=== PATIENT | female | born 1960 | race Caucasian/White ===

== ENCOUNTER → 2018-01-24 | Day surgery (SDC) | payer BC ==
[2018-01-19 15:58] VITALS: BMI 32.7
[~2018-01-24] MED LIST: GLYCOPYRROLATE 0.2 MG/ML 2 ML VIAL ONE; LACTATED RINGERS 1,000 ML IV SCH; LIDOCAINE 1% 20 ML VIAL (10MG/ML) FOR IV START INTRADERMA ONE; PROPOFOL 10 MG/ML 20 ML VIAL IV ONE; fentaNYL (PF) 50 MCG/ML 2 ML AMP ONE
--- NOTE | 2018-01-24 07:37 | P.GSHP ---
History of Present Illness H&P Date: 01/24/18 CHIEF COMPLAINT: GERD and colon screen HISTORY OF PRESENT ILLNESS: The patient is a 58-year-old female who presents with gastroesophageal reflux disease and need for colon screen. Upper and lower endoscopy were offered for further evaluation and management. PAST MEDICAL HISTORY: Please see list. PAST SURGICAL HISTORY: Please see list. MEDICATIONS: Please see list. ALLERGIES: Please see list. SOCIAL HISTORY: No illicit drug use FAMILY HISTORY: No reports of Crohn disease or ulcerative colitis. REVIEW OF ORGAN SYSTEMS: CONSTITUTIONAL: No reports of fevers or chills. GI: Denies any blood in stools or constipation. PHYSICAL EXAM: VITAL SIGNS: Stable GENERAL: Well-developed pleasant in no acute distress. HEENT: No scleral icterus. Extraocular movements grossly intact. Moist buccal mucosa. NECK: Supple without lymphadenopathy. CHEST: Unlabored respirations. Equal bilateral excursions. CARDIOVASCULAR: Regular rate and rhythm. Distal 2+ pulses. ABDOMEN: Soft, nondistended. MUSCULOSKELETAL: No clubbing, cyanosis, or edema. ASSESSMENT: 1. Gastroesophageal reflux disease 2. Colon screen. PLAN: 1. Recommend proceeding with an upper and lower endoscopy Past Medical History Past Medical History: Asthma, COPD, Hypertension History of Any Multi-Drug Resistant Organisms: None Reported Past Surgical History: Cholecystectomy, Heart Catheterization With Stent, Hysterectomy Past Anesthesia/Blood Transfusion Reactions: No Reported Reaction Date of Last Stent Placement:: 2005 Smoking Status: Current every day smoker - Past Family History Brother(s) Family Medical History: Cancer Medications and Allergies Home Medications Medication Instructions Recorded Confirmed Type Metoprolol Succinate (ER) [Toprol 50 mg PO BID 01/19/18 01/19/18 History Xl] Allergies Allergy/AdvReac Type Severity Reaction Status Date / Time No Known Allergies Allergy Verified 01/19/18 15:53
[2018-01-24 11:05] VITALS: RESP 18; TEMP 97.6
--- NOTE | 2018-01-24 12:57 | P.PN ---
Progress Note - Text Progress Note Date: 01/24/18 To Whom It May Concern: The patient above had a procedure today, 01/24/2018. She may return to work in 24-48 hours. Regards, Linda Chirinos MD
[2018-01-24 13:17] VITALS: BP 159/79; PULSE 82
--- NOTE | 2018-01-29 09:40 | P.PCN ---
Date of Procedure: 01/24/18 Description of Procedure: PREOPERATIVE DIAGNOSIS: Gastroesophageal reflux disease. POSTOPERATIVE DIAGNOSIS: Gastritis. Gastroesophageal reflux disease. Diaphragmatic hiatal hernia without obstruction. Erosive esophagitis OPERATION: Esophagogastroduodenoscopy with biopsies along antrum and esophagus SURGEON: Linda Chirinos MD ANESTHESIA: MAC. INDICATIONS: The patient is a 58-year-old female who presents with a history of reflux disease. Benefits and risks of the procedure were described. Informed consent was obtained. DESCRIPTION: The patient was brought into the endoscopy suite and laid in the left lateral decubitus position. An Olympus gastroscope was passed along the posterior oropharynx down to the distal esophagus where the squamocolumnar junction was encountered at 35 cm from the incisors. The stomach was entered and no bile reflux was found. Additional findings are listed below. Biopsies with cold forceps were obtained of the antrum and distal esophagus. The first through third portion of the duodenum was examined and unremarkable. Retroflexion of the scope confirmed Hill grade 4 lower esophageal valve. The squamocolumnar junction demostrated acute LA grade C erosive esophagitis. The stomach was desufflated. The patient tolerated the procedure well. FINDINGS: Squamocolumnar junction 35 cm from the incisors. Diaphragmatic hiatus at 40 cm. Hiatal hernia 5 cm, fixed. Hill grade 4 lower esophageal valve. LA grade C erosive esophagitis. No active duodenitis. Superficial gastritis with inflammation. RECOMMENDATIONS: Further recommendations pending results of pathology report. Upper endoscopy as needed. Will benefit from antireflux surgical procedure
--- NOTE | 2018-01-29 09:44 | P.PCN ---
Date of Procedure: 01/24/18 Description of Procedure: PREOPERATIVE DIAGNOSIS: Colonoscopy screening. POSTOPERATIVE DIAGNOSIS: Colonoscopy screening. Diverticulosis, scattered. Sigmoid colon polyp. OPERATION: Colonoscopy to the ileocecal valve and appendiceal orifice. Colonoscopy with cold forceps biopsies, 15 cm from anal verge SURGEON: Linda Chirinos MD. ANESTHESIA: MAC. INDICATIONS: The patient is a 58-year-old female who presents for her first colonoscopy screening. Benefits and risks were described and informed consent was obtained. DESCRIPTION OF PROCEDURE: The patient had undergone Gatorade, MiraLAX and Dulcolax prep. She had been brought into the operating room and laid in the left lateral decubitus position. After adequate intravenous sedation, the rectum was examined with 2% lidocaine jelly. No external hemorrhoids were encountered. The rectal tone was within normal limits. No lesions were palpated in the rectal vault. An Olympus colonoscope was advanced until the ileocecal valve and appendiceal orifice were clearly viewed. The prep was excellent with clear visualization of the mucosal folds. The scope was removed with visualization of each mucosal fold. Scattered diverticulosis was encountered. A colonic polyp was found. No evidence of focal colitis was found. Retroflexion of the scope demonstrated no grade 1 internal hemorrhoids with active bleeding or inflammation. The colon was desufflated. The patient had tolerated the procedure well. Withdrawal time was over 6 minutes. FINDINGS: No internal hemorrhoids, grade 1 No external prolapsed hemorrhoids. No arteriovenous malformations. Hyperplastic polyp at 15 cm from the anal verge, 3 mm cold forceps biopsy to completion No focal colitis. RECOMMENDATIONS: Lower endoscopy in 5 years, 2022. Plan - Discharge Summary New Discharge Prescriptions: New Omeprazole 40 mg PO DAILY #30 capsule. No Action Metoprolol Succinate (ER) [Toprol Xl] 50 mg PO BID Discharge Medication List Metoprolol Succinate (ER) [Toprol Xl] 50 mg PO BID 01/19/18 [History] Omeprazole 40 mg PO DAILY #30 capsule. 01/24/18 [Rx] Follow up Appointment(s)/Referral(s): Linda Chirinos MD [STAFF PHYSICIAN] - 02/13/18 Patient Instructions/Handouts: *Surgery [facility] - (Anesthesia) Endoscopy Discharge Instructions, Gastroesophageal Reflux Disease (DC), Colorectal Polyps (GEN) Discharge Disposition: HOME SELF-CARE
== END | disposition home or self-care (01) ==
LOC: ORWHC2ENDO 09:38
PROVIDERS: ATTEND Surgery Plastic and Reconstructive Surgery
DX: Z12.11 Encounter for screening for malignant neoplasm of colon (principal); K63.5 Polyp of colon; K57.30 Diverticulosis of large intestine without perforation or abscess without bleeding; K29.30 Chronic superficial gastritis without bleeding; K21.0 Gastro-esophageal reflux disease with esophagitis; K22.10 Ulcer of esophagus without bleeding; K44.9 Diaphragmatic hernia without obstruction or gangrene; J44.9 Chronic obstructive pulmonary disease, unspecified; I10 Essential (primary) hypertension; I25.10 Atherosclerotic heart disease of native coronary artery without angina pectoris; Z95.5 Presence of coronary angioplasty implant and graft; Z79.899 Other long term (current) drug therapy; F17.200 Nicotine dependence, unspecified, uncomplicated
CPT/HCPCS: 88305; 45380; 43239; J3010; J2704

== ENCOUNTER 2018-10-16 17:48 | Inpatient (IN) | payer BC ==
[2018-10-16] MEDS ORDERED: MORPHINE SULFATE 4 MG/ML SYRINGE IV STA (18:03)
[2018-10-16] MEDS ORDERED: SODIUM CHLORIDE 0.9% 1,000 ML IV STA ×2 (18:03)
[2018-10-16] MEDS ORDERED: LABETALOL 5 MG/ML VIAL MDV IVP STA (18:05)
[2018-10-16 18:25] LABS: Basophils % (A) 1 %; Eosinophils # (A) 0.2 k/uL (0-0.7); Eosinophils % (A) 3 %; HGB 14.7 gm/dL (11.4-16.0); Lymphocytes # (A) 1.6 k/uL (1.0-4.8); Lymphocytes % (A) 27 %; MCHC 34.1 g/dL (31.0-37.0); MCV 85.1 fL (80.0-100.0); Mean Platelet Volume 6.3; Monocytes # (A) 0.4 k/uL (0-1.0); Monocytes % (A) 7 %; Neutrophils # (A) 3.6 k/uL (1.3-7.7); Neutrophils % (A) 60 %; Platelet Count 314 k/uL (150-450); RBC 5.06 m/uL (3.80-5.40); RDW 13.9 % (11.5-15.5)
[2018-10-16 18:38] LABS: Partial Thromboplastin Time 25.2 sec (22.0-30.0)
[2018-10-16 18:43] LABS: Albumin 4.3 g/dL (3.5-5.0); Calcium 10.2 mg/dL (8.4-10.2); Magnesium 1.9 mg/dL (1.6-2.3); Phosphorus 3.7 mg/dL (2.5-4.5); Potassium 4.4 mmol/L (3.5-5.1); Total Bilirubin 0.6 mg/dL (0.2-1.3); Total Protein 7.4 g/dL (6.3-8.2)
[2018-10-16 18:44] LABS: Creatine Kinase 45 U/L (30-135)
[2018-10-16] MEDS ORDERED: LABETALOL SYRINGE 5 MG/ML IVP STA (18:44)
--- NOTE | 2018-10-16 18:46 | ED ---
Recheck HPI - General Chief Complaint: Recheck/Abnormal Lab/Rx Stated Complaint: abn CT Time Seen by Provider: 10/16/18 18:03 Source: patient, RN notes reviewed, old records reviewed Mode of arrival: wheelchair Limitations: no limitations - History of Present Illness Initial Comments: This is a 58-year-old female the ER for evaluation, she presents today as an outpatient evaluation of abdominal pain with a positive CAT scan. Dr. Doug Kolb patient, patient saw her left lower quadrant abdominal pain and states her blood pressure is been running high. Symptoms of been greater than 2 weeks MD Complaint: other (Abnormal CT scan) -: month(s) (1) Initial Visit For: other (abdominal pain) Returns Today for: other (blood pressure and pain control) Symptoms Since Prior Visit: worsening pain Context: other (CT scan results) Associated Symptoms: nausea, abdominal pain - Related Data Home Medications Medication Instructions Recorded Confirmed Metoprolol Succinate (ER) [Toprol 50 mg PO DAILY 01/19/18 10/16/18 Xl] Previous Rx's Medication Instructions Recorded Omeprazole 40 mg PO DAILY #30 capsule. 01/24/18 Allergies Allergy/AdvReac Type Severity Reaction Status Date / Time No Known Allergies Allergy Verified 10/16/18 18:28 Review of Systems ROS Statement: Those systems with pertinent positive or pertinent negative responses have been documented in the HPI. ROS Other: All systems not noted in ROS Statement are negative. Past Medical History Past Medical History: Asthma, COPD, Hypertension History of Any Multi-Drug Resistant Organisms: None Reported Past Surgical History: Cholecystectomy, Heart Catheterization With Stent, Hysterectomy Past Anesthesia/Blood Transfusion Reactions: No Reported Reaction Date of Last Stent Placement:: 2005 Past Psychological History: No Psychological Hx Reported Smoking Status: Current every day smoker Past Alcohol Use History: None Reported Past Drug Use History: None Reported - Past Family History Brother(s) Family Medical History: Cancer General Exam Limitations: no limitations General appearance: alert, in no apparent distress, anxious Head exam: Present: atraumatic, normocephalic, normal inspection Eye exam: Present: normal appearance, PERRL, EOMI. Absent: scleral icterus, conjunctival injection, periorbital swelling ENT exam: Present: normal exam, mucous membranes moist Neck exam: Present: normal inspection. Absent: tenderness, meningismus, lymphadenopathy Respiratory exam: Present: normal lung sounds bilaterally. Absent: respiratory distress, wheezes, rales, rhonchi, stridor Cardiovascular Exam: Present: normal rhythm, tachycardia, normal heart sounds. Absent: systolic murmur, diastolic murmur, rubs, gallop, clicks GI/Abdominal exam: Present: soft, tenderness (LLQ), normal bowel sounds. Absent : distended, guarding, rebound, rigid Extremities exam: Present: normal inspection, full ROM, normal capillary refill. Absent: tenderness, pedal edema, joint swelling, calf tenderness Back exam: Present: normal inspection Neurological exam: Present: alert, oriented X3, CN II-XII intact Psychiatric exam: Present: normal affect, normal mood Skin exam: Present: warm, dry, intact, normal color. Absent: rash Course Vital Signs 10/16/18 10/16/18 10/16/18 17:51 18:45 18:54 Temperature 98.5 F Pulse Rate 112 H 93 93 Respiratory 20 18 18 Rate Blood Pressure 192/136 195/95 182/75 O2 Sat by Pulse 98 99 Oximetry 10/16/18 19:56 Temperature Pulse Rate 84 Respiratory 20 Rate Blood Pressure 156/71 O2 Sat by Pulse 97 Oximetry - Reevaluation(s) Reevaluation #1: 10/16/18 20:17 Medical record is reviewed as well as outpatient CAT scan showing dissection or Reevaluation #2: 10/16/18 20:17 A she has much improved pain control, blood pressure control Medical Decision Making - Medical Decision Making 38 female the ER for evaluation of abdominal aortic dissection chronic in nature , patient will be admitted for blood pressure control and pain control - Lab Data Result diagrams: 10/16/18 18:13 10/16/18 18:13 Lab Results 10/16/18 10/16/18 10/16/18 Range/Units 18:13 18:13 18:13 WBC 6.0 (3.8-10.6) k/uL RBC 5.06 (3.80-5.40) m/uL Hgb 14.7 (11.4-16.0) gm/dL Hct 43.0 (34.0-46.0) % MCV 85.1 (80.0-100.0) fL MCH 29.0 (25.0-35.0) pg MCHC 34.1 (31.0-37.0) g/dL RDW 13.9 (11.5-15.5) % Plt Count 314 (150-450) k/uL Neutrophils % 60 % Lymphocytes % 27 % Monocytes % 7 % Eosinophils % 3 % Basophils % 1 % Neutrophils # 3.6 (1.3-7.7) k/uL Lymphocytes # 1.6 (1.0-4.8) k/uL Monocytes # 0.4 (0-1.0) k/uL Eosinophils # 0.2 (0-0.7) k/uL Basophils # 0.0 (0-0.2) k/uL PT (9.0-12.0) sec INR (<1.2) APTT (22.0-30.0) sec Sodium 139 (137-145) mmol/L Potassium 4.4 (3.5-5.1) mmol/L Chloride 104 (98-107) mmol/L Carbon Dioxide 26 (22-30) mmol/L Anion Gap 9 mmol/L BUN 17 (7-17) mg/dL Creatinine 0.98 (0.52-1.04) mg/dL Est GFR (CKD-EPI)AfAm 74 (>60 ml/min/1.73 sqM) Est GFR (CKD-EPI)NonAf 64 (>60 ml/min/1.73 sqM) Glucose 109 H (74-99) mg/dL Calcium 10.2 (8.4-10.2) mg/dL Phosphorus 3.7 (2.5-4.5) mg/dL Magnesium 1.9 (1.6-2.3) mg/dL Total Bilirubin 0.6 (0.2-1.3) mg/dL AST 68 H (14-36) U/L ALT 33 (9-52) U/L Alkaline Phosphatase 97 (38-126) U/L Total Creatine Kinase 45 (30-135) U/L CK-MB (CK-2) 0.8 (0.0-2.4) ng/mL CK-MB (CK-2) Rel Index 1.8 Troponin I <0.012 (0.000-0.034) ng/mL Total Protein 7.4 (6.3-8.2) g/dL Albumin 4.3 (3.5-5.0) g/dL 10/16/18 Range/Units 18:13 WBC (3.8-10.6) k/uL RBC (3.80-5.40) m/uL Hgb (11.4-16.0) gm/dL Hct (34.0-46.0) % MCV (80.0-100.0) fL MCH (25.0-35.0) pg MCHC (31.0-37.0) g/dL RDW (11.5-15.5) % Plt Count (150-450) k/uL Neutrophils % % Lymphocytes % % Monocytes % % Eosinophils % % Basophils % % Neutrophils # (1.3-7.7) k/uL Lymphocytes # (1.0-4.8) k/uL Monocytes # (0-1.0) k/uL Eosinophils # (0-0.7) k/uL Basophils # (0-0.2) k/uL PT 10.0 (9.0-12.0) sec INR 1.0 (<1.2) APTT 25.2 (22.0-30.0) sec Sodium (137-145) mmol/L Potassium (3.5-5.1) mmol/L Chloride (98-107) mmol/L Carbon Dioxide (22-30) mmol/L Anion Gap mmol/L BUN (7-17) mg/dL Creatinine (0.52-1.04) mg/dL Est GFR (CKD-EPI)AfAm (>60 ml/min/1.73 sqM) Est GFR (CKD-EPI)NonAf (>60 ml/min/1.73 sqM) Glucose (74-99) mg/dL Calcium (8.4-10.2) mg/dL Phosphorus (2.5-4.5) mg/dL Magnesium (1.6-2.3) mg/dL Total Bilirubin (0.2-1.3) mg/dL AST (14-36) U/L ALT (9-52) U/L Alkaline Phosphatase (38-126) U/L Total Creatine Kinase (30-135) U/L CK-MB (CK-2) (0.0-2.4) ng/mL CK-MB (CK-2) Rel Index Troponin I (0.000-0.034) ng/mL Total Protein (6.3-8.2) g/dL Albumin (3.5-5.0) g/dL - EKG Data -: EKG Interpreted by Me (EKG shows normal sinus rhythm rate 95, KS 154, QRS 92 , QTc 442) - Radiology Data Radiology results: report reviewed (CT abdomen pelvis is positive for chronic aortic dissection at L4) Disposition Clinical Impression: Aortic dissection, abdominal, Hypertension Narrative: Abdominal Aortic Dissection TypeB Chronic Disposition: ADMITTED IP TO THIS HOSP Condition: Serious Is patient prescribed a controlled substance at d/c from ED?: No Referrals: Caleb Lopez MD [Primary Care Provider] - 1-2 days
[2018-10-16 18:56] LABS: Creatine Kinase MB 0.8 ng/mL (0.0-2.4); Troponin I <0.012 ng/mL (0.000-0.034)
[2018-10-16] MEDS ORDERED: MORPHINE SULFATE 4 MG/ML SYRINGE IVP PRN (20:18)
[2018-10-16] MEDS ORDERED: ASPIRIN 325 MG TAB PO STA (20:29)
[2018-10-16] MEDS ORDERED: hydrALAZINE HCL 20 MG/ML 1 ML VIAL IVP PRN (21:16)
[2018-10-17] MEDS ORDERED: LABETALOL 200 MG TAB PO SCH (09:00)
[2018-10-17] MEDS ORDERED: ASPIRIN 325 MG TAB PO SCH (09:00)
[2018-10-17 09:30] VITALS: RESP 20
[2018-10-17 11:39] VITALS: BP 100/59; PULSE 62; TEMP 98.1
[2018-10-17] MEDS ORDERED: metroNIDAZOLE 500 MG TAB PO SCH (13:15)
[2018-10-17] MEDS ORDERED: CIPROFLOXACIN HCL 500 MG TAB PO SCH (13:15)
--- NOTE | 2018-10-17 13:39 | P.HPIM ---
History of Present Illness 58-year-old pleasant female came in with complains of left upper quadrant abdominal pain has been going on for about a month sharp in nature on and off 5 or 10 in severity. Patient the has seen in surgery as an outpatient who ordered a CAT scan of the abdomen which did show some colitis. Patient doesn't have any diarrhea nausea vomiting and this point of time will advance her diet patient will be discharged on oral antibiotics for a week and if those doesn't improve her symptoms patient will need a colonoscopy. Incidentally patient's CAT scan showed a short segment the LAD dissection at the level of L4 extending length of 1-1.5 cm which appears to be chronic. This is not contributing to her symptoms of abdominal pain. These findings were discussed with the vascular surgeon Dr. No on phone and he recommended outpatient follow-up with him. No further intervention is being recommended. Review of Systems REVIEW OF SYSTEMS: CONSTITUTIONAL: No fever, no malaise, no fatigue. HEENT: No recent visual problems or hearing problems. Denied any sore throat. CARDIOVASCULAR: No chest pain, orthopnea, PND, no palpitations, no syncope. PULMONARY: No shortness of breath, no cough, no hemoptysis. GASTROINTESTINAL: No diarrhea, no nausea, no vomiting, Normoactive bowel sounds. NEUROLOGICAL: No headaches, no weakness, no numbness. HEMATOLOGICAL: Denies any bleeding or petechiae. GENITOURINARY: Denies any burning micturition, frequency, or urgency. MUSCULOSKELETAL/RHEUMATOLOGICAL: Denies any joint pain, swelling, or any muscle pain. ENDOCRINE: Denies any polyuria or polydipsia. The rest of the 14-point review of systems is negative. Past Medical History Past Medical History: Asthma, Coronary Artery Disease (CAD), COPD, GERD/Reflux, Hypertension Additional Past Medical History / Comment(s): HIATAL HERNIA, PAST ESOPHAGITIS, DIVERTICULITIS History of Any Multi-Drug Resistant Organisms: None Reported Past Surgical History: Cholecystectomy, Heart Catheterization With Stent, Hysterectomy Additional Past Surgical History / Comment(s): EBG W/ BX PT STATED WAS NEG, COLONOSCOPY Past Anesthesia/Blood Transfusion Reactions: No Reported Reaction Additional Past Anesthesia/Blood Transfusion Reaction / Comment(s): CLAUSTERPHOBIA Date of Last Stent Placement:: 2005 Smoking Status: Current every day smoker - Past Family History Brother(s) Family Medical History: Cancer Mother Family Medical History: Hypertension, Myocardial Infarction ([place]) Additional Family Medical History / Comment(s): 4 MONTHS AFTER HUSBANDFROM "COMPLICATIONS OF A BROKEN HEART" Father Additional Family Medical History / Comment(s): RHEUMATIC FEVER TWICE CHILD. HAD VALVE REPALCEMENT Medications and Allergies Home Medications Medication Instructions Recorded Confirmed Type Metoprolol Succinate (ER) [Toprol 50 mg PO DAILY 01/19/18 10/16/18 History XL] Omeprazole 40 mg PO DAILY #30 capsule. 01/24/18 10/16/18 Rx Ciprofloxacin HCl [Cipro] 500 mg PO BID #14 tab 10/17/18 Rx metroNIDAZOLE [Flagyl] 500 mg PO TID #21 tab 10/17/18 Rx Allergies Allergy/AdvReac Type Severity Reaction Status Date / Time No Known Allergies Allergy Verified 10/16/18 18:28 Physical Exam Vitals: Vital Signs Temp Pulse Pulse Resp BP BP Pulse Ox 10/17/18 11:38 98.1 F 62 20 100/59 95 10/17/18 08:00 96.7 F L 96 20 139/76 96 10/17/18 04:00 98.2 F 74 16 99 10/16/18 23:59 80 16 10/16/18 23:53 97.6 F 80 16 157/78 97 10/16/18 22:57 75 19 151/69 97 10/16/18 21:13 98.1 F 80 19 162/83 99 10/16/18 19:56 84 20 156/71 97 10/16/18 18:54 93 18 182/75 10/16/18 18:45 93 18 195/95 99 10/16/18 17:51 98.5 F 112 H 20 192/136 98 Intake and Output 10/16/18 10/17/18 10/17/18 22:59 06:59 14:59 Intake Total 480 0 120 Balance 480 0 120 Intake: Oral 480 0 120 Other: Voiding Method Toilet # Voids 2 2 1 Weight 72.575 kg 75.3 kg PHYSICAL EXAMINATION: GENERAL: The patient is alert and oriented x3, not in any acute distress. Well developed, well nourished. HEENT: Pupils are round and equally reacting to light. EOMI. No scleral icterus. No conjunctival pallor. Normocephalic, atraumatic. No pharyngeal erythema. No thyromegaly. CARDIOVASCULAR: S1 and S2 present. No murmurs, rubs, or gallops. PULMONARY: Chest is clear to auscultation, no wheezing or crackles. ABDOMEN: Soft, nontender, nondistended, normoactive bowel sounds. No palpable organomegaly. MUSCULOSKELETAL: No joint swelling or deformity. EXTREMITIES: No cyanosis, clubbing, or pedal edema. NEUROLOGICAL: Gross neurological examination did not reveal any focal deficits. SKIN: No rashes. Results CBC & Chem 7: 10/16/18 18:13 10/16/18 18:13 Labs: Abnormal Lab Results - Last 24 Hours (Table) 10/16/18 Range/Units 18:13 Glucose 109 H (74-99) mg/dL AST 68 H (14-36) U/L Thrombosis Risk Factor Assmnt - Choose All That Apply Each Factor Represents 1 point: Age 41-60 years Thrombosis Risk Factor Assessment Total Risk Factor Score: 1 Thrombosis Risk Factor Assessment Level: Low Risk Assessment and Plan Plan: -Abdominal pain secondary to colitis patient will be treated for infectious colitis further workup with colonoscopy need to be done if her symptoms are not resolved with antibiotics. We'll advance her diet today -Incidental finding of short segment abdominal aortic dissection: No further intervention is being recommended by vascular surgery, patient will follow up with gastro-surgery as an outpatient nicotine cessation counseling was provided Nicotine abuse: Counseling was provided -COPD without any acute exacerbation counseling regarding nicotine cessation was provided patient can continue as needed inhalers at home. -Gastroesophageal reflux disease
--- NOTE | 2018-10-17 13:40 | P.DS ---
Providers Date of admission: 10/16/18 20:16 Attending physician: Yeni Doty Consults: 10/16/18 20:08 Consult Physician Routine Consulting Provider: Renzo White Consult Reason/Comments: HTN Do you want consulting provider notified?: Yes 10/17/18 08:50 Consult Physician Urgent Consulting Provider: Hermilo Del Real Consult Reason/Comments: Uncontrolled hypertension Do you want consulting provider notified?: Yes 10/17/18 12:59 Consult Physician Routine Consulting Provider: Christian No Consult Reason/Comments: Abd aortic aneurysm Do you want consulting provider notified?: Yes Primary care physician: Jessica Ellis [facility] Course: Please refer to my HPI for further details Patient Condition at Discharge: Serious Plan - Discharge Summary Discharge Rx Participant: No New Discharge Prescriptions: New Ciprofloxacin HCl [Cipro] 500 mg PO BID #14 tab metroNIDAZOLE [Flagyl] 500 mg PO TID #21 tab Continue Metoprolol Succinate (ER) [Toprol XL] 50 mg PO DAILY Omeprazole 40 mg PO DAILY #30 capsule. Discharge Medication List Metoprolol Succinate (ER) [Toprol XL] 50 mg PO DAILY 01/19/18 [History] Omeprazole 40 mg PO DAILY #30 capsule. 01/24/18 [Rx] Ciprofloxacin HCl [Cipro] 500 mg PO BID #14 tab 10/17/18 [Rx] metroNIDAZOLE [Flagyl] 500 mg PO TID #21 tab 10/17/18 [Rx] Follow up Appointment(s)/Referral(s): Caleb Lopez MD [Primary Care Provider] - 3 Days Linda Chirinos MD [STAFF PHYSICIAN] - 1 Week Christian No MD [STAFF PHYSICIAN] - 3 Days Discharge Disposition: HOME SELF-CARE
== END 2018-10-17 14:16 | disposition home or self-care (01) | DRG 391 ==
LOC: EC 17:48 → 3SCARD 20:16
PROVIDERS: ADMIT Internal Medicine; ATTEND Internal Medicine
DX: A09 Infectious gastroenteritis and colitis, unspecified (principal); I71.02 Dissection of abdominal aorta; J44.9 Chronic obstructive pulmonary disease, unspecified; I10 Essential (primary) hypertension; I25.10 Atherosclerotic heart disease of native coronary artery without angina pectoris; K44.9 Diaphragmatic hernia without obstruction or gangrene; K21.9 Gastro-esophageal reflux disease without esophagitis; F17.200 Nicotine dependence, unspecified, uncomplicated; Z71.6 Tobacco abuse counseling; Z79.899 Other long term (current) drug therapy; Z90.49 Acquired absence of other specified parts of digestive tract; Z90.710 Acquired absence of both cervix and uterus; Z95.5 Presence of coronary angioplasty implant and graft; Z87.19 Personal history of other diseases of the digestive system; Z80.9 Family history of malignant neoplasm, unspecified; Z82.49 Family history of ischemic heart disease and other diseases of the circulatory system; Z83.1 Family history of other infectious and parasitic diseases
CPT/HCPCS: 36415; 80053; 82550; 82553; 83735; 84100; 84484; 85025; 85610; 85730; 93005; 96361; 96374; 99284

== ENCOUNTER → 2018-10-16 | Outpatient (CLI) | payer BC ==
--- NOTE | 2018-10-16 15:25 | CT ---
EXAMINATION TYPE: CT abdomen pelvis w con DATE OF EXAM: 10/16/2018 COMPARISON: 04/20/2015 HISTORY: Left side abdominal pain. hx of diverticulitis CT DLP: 894.4 mGycm Automated exposure control for dose reduction was used. CONTRAST: CT scan of the abdomen pelvis is performed with IV Contrast, patient injected with 100 mL of Isovue 3 00. FINDINGS- LUNG BASES-coronary artery calcification noted. Lung canela are clear. Atherosclerotic change of the thoracic aorta and upper abdominal aorta.. LIVER/GB-postcholecystectomy changes. Liver reduced in attenuation correlate for hepatic steatosis.. PANCREAS- No gross abnormality is seen. SPLEEN- No gross abnormality is seen. Accessory spleen noted. ADRENALS-stable mild thickening left adrenal gland.. KIDNEYS/BLADDER- no hydronephrosis nephrolithiasis or renal mass. BOWEL- no bowel dilatation. Normal appendix. LYMPH NODES- No greater than 1cm abdominal or pelvic lymph nodes areappreciated. OSSEOUS STRUCTURES-hypertrophic change of the vertebral column noted.. OTHER- there is a small localized short segmental aortic dissection above the level of the aortic b ifurcation. Ectasia of the aorta measuring 2.7 cm. Findings relayed to the referring physician by ramo meredith. Similar to the prior exam. IMPRESSION- 1. There appears to be a short segmental aortic dissection at the level of L4 extending a length of approximately 1 to 1.5 cm. This may be chronic and should be correlated clinically. Case discussed wi referring physician. 2. No diagnostic evidence of inflammatory process or diverticulitis. There is wall thickening of the left colon however, the colon is incompletely distended which likely accounts for the finding rather than representing colitis. Correlate clinically.
--- NOTE | 2018-10-16 15:26 | P.PN ---
Progress Note - Text Progress Note Date: 10/16/18 I was notified by radiologist for aortic dissection on CT scan. I personally called the patient about the results and requested she immediately go to the ER as this is potentially a life threatening condition. She responded, "Doc, I dont have $150 co-pay for the ER" She was notified of the risks that aortic dissections are life-threatening. She verbalized understanding of those risks. Blood pressure control also advised.
== END ==
LOC: RADCTMAIN 12:57
PROVIDERS: ATTEND Surgery Plastic and Reconstructive Surgery
DX: R10.9 Unspecified abdominal pain (principal)
CPT/HCPCS: 74177; Q9967

== ENCOUNTER 2018-11-05 11:31 | Emergency (ER) | payer BC ==
[2018-11-05 11:51] VITALS: TEMP 97.9
[2018-11-05] MEDS ORDERED: PANTOPRAZOLE 40 MG/10 ML VIAL IVP STA (12:20)
[2018-11-05] MEDS ORDERED: SODIUM CHLORIDE 0.9% 1,000 ML IV STA (12:20)
--- NOTE | 2018-11-05 12:27 | ED ---
General Adult HPI - General Chief complaint: GI Bleed Stated complaint: Blood in stool Time Seen by Provider: 11/05/18 12:09 Source: patient, RN notes reviewed Mode of arrival: ambulatory Limitations: no limitations - History of Present Illness Initial comments: Patient is a pleasant 58-year-old female presenting to the emergency department with concerns regarding GI hemorrhage. Patient just did finish a course of antibiotics for diverticulitis approximately one week ago. Patient has mild abdominal discomfort. Patient did have several small episodes of diarrhea last night. This morning patient did have several episodes of bloody diarrhea. No nausea vomiting. No constipation. No fevers. Patient was diagnosed with abdominal aortic dissection less than once a month ago. Patient was told just blood pressure control. Patient has seen a vascular surgeon for this. - Related Data Home Medications Medication Instructions Recorded Confirmed Metoprolol Succinate (ER) [Toprol 50 mg PO DAILY 01/19/18 10/16/18 XL] Previous Rx's Medication Instructions Recorded Omeprazole 40 mg PO DAILY #30 capsule. 01/24/18 Ciprofloxacin HCl [Cipro] 500 mg PO BID #14 tab 10/17/18 metroNIDAZOLE [Flagyl] 500 mg PO TID #21 tab 10/17/18 Amoxic-Pot Clav 875-125Mg 1 tab PO Q12HR #20 tablet 11/05/18 [Augmentin 875-125] Allergies Allergy/AdvReac Type Severity Reaction Status Date / Time No Known Allergies Allergy Verified 11/05/18 11:51 Review of Systems ROS Statement: Those systems with pertinent positive or pertinent negative responses have been documented in the HPI. ROS Other: All systems not noted in ROS Statement are negative. Constitutional: Denies: fever Eyes: Denies: eye pain ENT: Denies: ear pain Respiratory: Denies: cough, dyspnea Cardiovascular: Denies: chest pain Endocrine: Denies: fatigue Gastrointestinal: Reports: abdominal pain, hematochezia. Denies: nausea, vomiting Genitourinary: Denies: dysuria Musculoskeletal: Denies: back pain Skin: Denies: rash Neurological: Denies: weakness Past Medical History Past Medical History: Asthma, Coronary Artery Disease (CAD), COPD, GERD/Reflux, Hypertension Additional Past Medical History / Comment(s): HIATAL HERNIA, PAST ESOPHAGITIS, DIVERTICULITIS History of Any Multi-Drug Resistant Organisms: None Reported Past Surgical History: Cholecystectomy, Heart Catheterization With Stent, Hysterectomy Additional Past Surgical History / Comment(s): EBG W/ BX PT STATED WAS NEG, COLONOSCOPY Past Anesthesia/Blood Transfusion Reactions: No Reported Reaction Additional Past Anesthesia/Blood Transfusion Reaction / Comment(s): CLAUSTERPHOBIA Date of Last Stent Placement:: 2005 Past Psychological History: No Psychological Hx Reported Smoking Status: Current every day smoker Past Alcohol Use History: None Reported Past Drug Use History: None Reported - Past Family History Brother(s) Family Medical History: Cancer Mother Family Medical History: Hypertension, Myocardial Infarction ([place]) Additional Family Medical History / Comment(s): 4 MONTHS AFTER HUSBANDFROM "COMPLICATIONS OF A BROKEN HEART" Father Additional Family Medical History / Comment(s): RHEUMATIC FEVER TWICE CHILD. HAD VALVE REPALCEMENT General Exam Limitations: no limitations General appearance: alert, in no apparent distress Head exam: Present: atraumatic Eye exam: Present: normal appearance, PERRL ENT exam: Present: normal oropharynx Neck exam: Present: normal inspection Respiratory exam: Present: normal lung sounds bilaterally Cardiovascular Exam: Present: regular rate, normal rhythm Expanded Peripheral pulses: 2+: Posterior Tibialis (R), Posterior Tibialis (L) GI/Abdominal exam: Present: soft. Absent: distended, tenderness, guarding, rebound, rigid, pulsatile mass Rectal exam: Present: bloody stool Extremities exam: Present: normal inspection Neurological exam: Present: alert Psychiatric exam: Present: normal affect, normal mood Skin exam: Present: normal color Course Vital Signs 11/05/18 11/05/18 11/05/18 11:49 12:27 13:00 Temperature 97.9 F Pulse Rate 107 H 86 91 Respiratory 20 18 16 Rate Blood Pressure 177/99 186/96 190/105 O2 Sat by Pulse 98 98 97 Oximetry 11/05/18 11/05/18 13:16 14:00 Temperature Pulse Rate Respiratory 18 Rate Blood Pressure 144/87 150/88 O2 Sat by Pulse 97 Oximetry Medical Decision Making - Medical Decision Making Patient reevaluated and resting comfortably in bed. Patient updated on results. Patient is recommended admission for further monitoring of blood pressure and blood pressure control. Blood pressure at this time is 128/74. Patient is specifically updated on CT I needs. Patient is also recommended IV antibiotics and GI/surgical consult. Patient is made aware that bleeding could worsen and become life-threatening. Patient is also made aware of concerns for blood pressure. Despite this patient refuses admission and will go home. Patient does demonstrate medical decision making. Patient will leave AGAINST MEDICAL ADVICE. Patient is agreeable to follow-up with her glue maker and vascular surgeon as well as primary care physician. - Lab Data Result diagrams: 11/05/18 12:56 11/05/18 12:56 Lab Results 11/05/18 11/05/18 11/05/18 Range/Units 12:56 12:56 12:56 WBC 9.2 (3.8-10.6) k/uL RBC 5.54 H (3.80-5.40) m/uL Hgb 16.2 H (11.4-16.0) gm/dL Hct 47.3 H (34.0-46.0) % MCV 85.3 (80.0-100.0) fL MCH 29.2 (25.0-35.0) pg MCHC 34.3 (31.0-37.0) g/dL RDW 13.9 (11.5-15.5) % Plt Count 292 (150-450) k/uL Neutrophils % 78 % Lymphocytes % 13 % Monocytes % 4 % Eosinophils % 3 % Basophils % 1 % Neutrophils # 7.2 (1.3-7.7) k/uL Lymphocytes # 1.2 (1.0-4.8) k/uL Monocytes # 0.4 (0-1.0) k/uL Eosinophils # 0.3 (0-0.7) k/uL Basophils # 0.1 (0-0.2) k/uL PT (9.0-12.0) sec INR (<1.2) APTT (22.0-30.0) sec Sodium 141 (137-145) mmol/L Potassium 4.6 (3.5-5.1) mmol/L Chloride 106 (98-107) mmol/L Carbon Dioxide 26 (22-30) mmol/L Anion Gap 9 mmol/L BUN 23 H (7-17) mg/dL Creatinine 0.97 (0.52-1.04) mg/dL Est GFR (CKD-EPI)AfAm 75 (>60 ml/min/1.73 sqM) Est GFR (CKD-EPI)NonAf 65 (>60 ml/min/1.73 sqM) Glucose 120 H (74-99) mg/dL Calcium 10.3 H (8.4-10.2) mg/dL Total Bilirubin 0.7 (0.2-1.3) mg/dL AST 54 H (14-36) U/L ALT 30 (9-52) U/L Alkaline Phosphatase 101 (38-126) U/L Total Creatine Kinase 33 (30-135) U/L CK-MB (CK-2) 0.7 (0.0-2.4) ng/mL CK-MB (CK-2) Rel Index 2.1 Troponin I <0.012 (0.000-0.034) ng/mL Total Protein 7.5 (6.3-8.2) g/dL Albumin 4.3 (3.5-5.0) g/dL Stool Occult Blood (Negative) 11/05/18 11/05/18 Range/Units 12:56 13:15 WBC (3.8-10.6) k/uL RBC (3.80-5.40) m/uL Hgb (11.4-16.0) gm/dL Hct (34.0-46.0) % MCV (80.0-100.0) fL MCH (25.0-35.0) pg MCHC (31.0-37.0) g/dL RDW (11.5-15.5) % Plt Count (150-450) k/uL Neutrophils % % Lymphocytes % % Monocytes % % Eosinophils % % Basophils % % Neutrophils # (1.3-7.7) k/uL Lymphocytes # (1.0-4.8) k/uL Monocytes # (0-1.0) k/uL Eosinophils # (0-0.7) k/uL Basophils # (0-0.2) k/uL PT 9.8 (9.0-12.0) sec INR 0.9 (<1.2) APTT 24.0 (22.0-30.0) sec Sodium (137-145) mmol/L Potassium (3.5-5.1) mmol/L Chloride (98-107) mmol/L Carbon Dioxide (22-30) mmol/L Anion Gap mmol/L BUN (7-17) mg/dL Creatinine (0.52-1.04) mg/dL Est GFR (CKD-EPI)AfAm (>60 ml/min/1.73 sqM) Est GFR (CKD-EPI)NonAf (>60 ml/min/1.73 sqM) Glucose (74-99) mg/dL Calcium (8.4-10.2) mg/dL Total Bilirubin (0.2-1.3) mg/dL AST (14-36) U/L ALT (9-52) U/L Alkaline Phosphatase (38-126) U/L Total Creatine Kinase (30-135) U/L CK-MB (CK-2) (0.0-2.4) ng/mL CK-MB (CK-2) Rel Index Troponin I (0.000-0.034) ng/mL Total Protein (6.3-8.2) g/dL Albumin (3.5-5.0) g/dL Stool Occult Blood Positive H (Negative) - Radiology Data Radiology results: report reviewed (Computed tomography scan of the abdomen and pelvis shows concern for the transverse colon to sigmoid inflammation, likely colitis. Fusiform ectasia and atherosclerotic changes in 3 no abdominal aorta, 2.8 cm.) Disposition Clinical Impression: Hypertension, Gastrointestinal hemorrhage Disposition: Left Against Medical Advice Instructions: Gastrointestinal Bleeding (ED), Hypertension (ED) Additional Instructions: Please follow-up with primary care physician, your vascular surgeon, and your glue maker in the next day or 2 for recheck. Return for increased pain, uncontrolled blood pressure, increased bleeding, fevers, worsening or changing symptoms or other concerns. Prescriptions: Amoxic-Pot Clav 875-125Mg [Augmentin 875-125] 1 tab PO Q12HR #20 tablet Is patient prescribed a controlled substance at d/c from ED?: No Referrals: Caleb Lopez MD [Primary Care Provider] - 1-2 days Time of Disposition: 15:15
[2018-11-05] MEDS ORDERED: LABETALOL SYRINGE 5 MG/ML IVP STA (12:47)
[2018-11-05 13:01] VITALS: PULSE 91
[2018-11-05 13:15] LABS: Basophils # (A) 0.1 k/uL (0-0.2); Basophils % (A) 1 %; Eosinophils # (A) 0.3 k/uL (0-0.7); Eosinophils % (A) 3 %; HCT 47.3 % (34.0-46.0); HGB 16.2 gm/dL (11.4-16.0); Lymphocytes # (A) 1.2 k/uL (1.0-4.8); Lymphocytes % (A) 13 %; MCH 29.2 pg (25.0-35.0); MCHC 34.3 g/dL (31.0-37.0); MCV 85.3 fL (80.0-100.0); Mean Platelet Volume 6.7; Monocytes # (A) 0.4 k/uL (0-1.0); Monocytes % (A) 4 %; Neutrophils # (A) 7.2 k/uL (1.3-7.7); Neutrophils % (A) 78 %; Platelet Count 292 k/uL (150-450); RBC 5.54 m/uL (3.80-5.40); RDW 13.9 % (11.5-15.5); WBC 9.2 k/uL (3.8-10.6)
[2018-11-05 13:23] LABS: INR 0.9 (<1.2); Prothrombin Time 9.8 sec (9.0-12.0)
[2018-11-05 13:28] LABS: Albumin 4.3 g/dL (3.5-5.0); Calcium 10.3 mg/dL (8.4-10.2); Potassium 4.6 mmol/L (3.5-5.1); Total Bilirubin 0.7 mg/dL (0.2-1.3); Total Protein 7.5 g/dL (6.3-8.2)
[2018-11-05 13:38] LABS: Creatine Kinase 33 U/L (30-135)
[2018-11-05 13:51] LABS: Creatine Kinase MB 0.7 ng/mL (0.0-2.4); Troponin I <0.012 ng/mL (0.000-0.034)
--- NOTE | 2018-11-05 14:01 | CT ---
EXAMINATION TYPE: CT abdomen pelvis w con DATE OF EXAM: 11/05/2018 COMPARISON: 10/16/2018 HISTORY: 58-year-old female Blood in stool TECHNIQUE: Contiguous axial scanning of the abdomen and pelvis following administration of 100 ml Iso macho 300 IV contrast. Delayed images through the kidneys and coronal/sagittal reconstructions perform ed. CT DLP: 858.2 mGycm Automated exposure control for dose reduction was used. FINDINGS: Heart normal size without pericardial effusion. Coronary vessel calcifications are present. Lung base s clear without pleural effusion. Small hiatal hernia. Moderate atherosclerotic calcifications and plaque throughout the abdominal aorta and iliac arteries. There is a focal narrowing at the aortic bifurcation secondary to atherosclerotic change. Fusiform e ctasia of the infrarenal abdominal aorta just above at 2.8 cm. No focal liver lesion or biliary ductal dilatation. Portal venous system is patent. Cholecystectomy clips. Right adrenal gland, kidneys, spleen with inferior splenules, pancreas show no gross abnormal body. Stable minimal 9 mm nodularity left adrenal gland. No dilated small bowel, free fluid, or free air. No mesenteric or retroperitoneal lymphadenopathy. There is moderate stool in the right side of the abdomen. Moderate circumferential wall thickening of the transverse colon extending distally to the proximal sigmoid with mild surrounding fat stranding. No significant diverticular change. Bladder urine distended. Uterus surgically absent. No abnormal fluid collection in the pelvis or pelv ic lymphadenopathy seen. Bones: No osseous destructive process. IMPRESSION: 1. MODERATE COLITIS EXTENDING FROM THE TRANSVERSE COLON TO THE PROXIMAL SIGMOID. THIS IS NONSPECIFIC AND COULD BE INFECTIOUS OR INFLAMMATORY IN ETIOLOGY. THE VERY LONG INVOLVED SEGMENT MAKES ISCHEMIC LE SS LIKELY. CLINICALLY CORRELATE. 2. MODERATE ATHEROSCLEROTIC CHANGES WITH FUSIFORM ECTASIA OF THE INFRARENAL ABDOMINAL AORTA 2.8 CM. 3. SMALL HIATAL HERNIA.
[2018-11-05 14:14] VITALS: BP 150/88; RESP 18
== END 2018-11-05 15:35 | disposition left against medical advice (07) ==
LOC: EC 11:31
DX: K92.2 Gastrointestinal hemorrhage, unspecified (principal); Z91.19 Patient's noncompliance with other medical treatment and regimen; I10 Essential (primary) hypertension; I25.10 Atherosclerotic heart disease of native coronary artery without angina pectoris; F17.200 Nicotine dependence, unspecified, uncomplicated; Z79.899 Other long term (current) drug therapy; Z95.5 Presence of coronary angioplasty implant and graft
CPT/HCPCS: 99285; 96374; 96375; 96361 ×2; 36415; 80053; 82550; 82553; 84484; 85025; 85610; 85730; 82272; 74177; C9113; Q9967

== ENCOUNTER → 2019-03-07 | Outpatient (CLI) | payer BC ==
[2019-03-07 15:09] LABS: HCT 45.3 % (34.0-46.0); HGB 14.8 gm/dL (11.4-16.0); MCH 28.2 pg (25.0-35.0); MCHC 32.7 g/dL (31.0-37.0); MCV 86.1 fL (80.0-100.0); Mean Platelet Volume 6.5; Platelet Count 348 k/uL (150-450); RBC 5.26 m/uL (3.80-5.40); RDW 13.6 % (11.5-15.5); WBC 6.6 k/uL (3.8-10.6)
[2019-03-07 15:27] LABS: Potassium 4.5 mmol/L (3.5-5.1)
== END | disposition home or self-care (01) ==
LOC: LABPAT 14:52
PROVIDERS: ATTEND Internal Medicine Interventional Cardiology
DX: Z01.812 Encounter for preprocedural laboratory examination (principal); I10 Essential (primary) hypertension; R06.02 Shortness of breath
CPT/HCPCS: 80051; 82565; 84520; 85027

== ENCOUNTER → 2019-03-14 | Day surgery (SDC) | payer BC ==
[2019-03-13 08:20] VITALS: BMI 30.2
[~2019-03-14] MED LIST changes: +ALPRAZolam 0.25 MG TAB PO PRN; +ASPIRIN 325 MG TAB PO ONE; -GLYCOPYRROLATE 0.2 MG/ML 2 ML VIAL ONE; +HEPARIN SODIUM 1,000 UN/ML (10ML VL) ONE; +IOPAMIDOL-370 125ML BTL INJ ONE; +IV FLUID CONTINUATION 800 ML IV ONE; -LACTATED RINGERS 1,000 ML IV SCH; -LIDOCAINE 1% 20 ML VIAL (10MG/ML) FOR IV START INTRADERMA ONE; +LIDOCAINE 1% INJ 10MG/ML (20 ML MDV) ONE; +LIDOCAINE 1% INJ 10MG/ML (20 ML MDV) SQ ONE; +MIDAZOLAM (PF) 2 MG/2 ML VIAL IV ONE; +NITROGLYCERIN SL TABS 0.4 MG TAB SUBLINGUAL PRN; -PROPOFOL 10 MG/ML 20 ML VIAL IV ONE; +RX INFO: IV CONTRAST WAS GIVEN 1 EACH MISC MISCELLANE PRN; +SODIUM CHLORIDE 0.9% 1,000 ML IV SCH; +SODIUM CHLORIDE 0.9% 1,000 ML in EMPTY BAG 1 BAG IV ONE; +VERAPAMIL 2.5 MG/ML 2 ML AMP ONE; +fentaNYL (PF) 50 MCG/ML 2 ML AMP IV ONE
[2019-03-14 11:53] VITALS: TEMP 98
[2019-03-14] MEDS: VERAPAMIL SYRINGE (5 MG/10 ML) INTRAARTER ONE ×2 (13:41→13:49)
[2019-03-14 14:59] VITALS: RESP 16
[2019-03-14 15:35] VITALS: BP 120/70; PULSE 61
--- NOTE | 2019-03-14 22:21 | CC ---
CARDIAC CATHETERIZATION REPORT DATE OF SERVICE: March 14, 2019 PERFORMING PHYSICIAN: Castro Thornton MD, hoisting laborer. PROCEDURE PERFORMED: 1. Selective right and left coronary angiogram. 2. Left heart catheterization. INDICATION: This is a pleasant 59-year-old female patient with history of coronary artery disease and prior stenting of the RCA, was experiencing symptoms of chest discomfort with exertion concerning for angina. Because of that, and because of multiple risk factors beside her history of coronary artery disease, we decided to pursue with a heart catheterization. APPROACH: Right radial artery. COMPLICATION: None. LEVEL OF SEDATION: Moderate with sedation length of 13 minutes. PROCEDURE DESCRIPTION: After obtaining an informed consent, the patient was brought to cardiac cath lab manager. The right radial artery was cannulated using micropuncture technique, the micropuncture wire passed easily then I placed a 6-Macedonian 11 cm sheath in the right radial artery. After that I gave the patient 2 mg of verapamil IA and 10,000 units of heparin IV. Selective right and left coronary angiogram was performed using JR4 and JL3.5 catheters. Left heart catheterization was performed using the JR4 catheter which crossed the aortic valve. Then I did pullback across the valve. The procedure was completed without any complication. SELECTIVE CORONARY ANGIOGRAM: RIGHT CORONARY ARTERY: The right coronary artery is chronically occluded in the midportion with a long area of occlusion. The RCA fills by collaterals from the left coronary system. LEFT MAIN: The left main appeared to have mild disease only. It bifurcates into the circumflex and left anterior descending artery. LEFT CIRCUMFLEX: The left circumflex is a large caliber vessel. It is a nondominant vessel. The left circumflex system appeared to have mild disease only. It gives rise into OM branch in the midportion, which seems to be normal. LEFT ANTERIOR DESCENDING CORONARY ARTERY: The proximal LAD appeared to be angiographically normal. The mid LAD is normal and gives rise into 3 small diagonal branches appeared to be normal and the LAD distally is normal. HEMODYNAMICS: The left ventricular end-diastolic pressure was about 8 mmHg without significant gradient across the aortic valve. CONCLUSION: 1. Chronic total occlusion of the RCA a long segment extending from the proximal portion to the distal portion. The RCA fills by extensive collaterals from the left coronary system. 2. Mild disease involving the left coronary system including the left circumflex and LAD as well as left main. POSTPROCEDURE MANAGEMENT: 1. Maximize medical treatment. 2. Aggressive cholesterol control. 3. High-intensity statin. 4. Possibly oral nitrate as an outpatient. 5. Follow up with the patient. MMODL / IJN: [id number] /
--- NOTE | 2019-03-14 22:28 | LTR ---
DATE OF SERVICE: March 14, 2019. Dr. Caleb Lopez Dear Caleb: Ms. Altagracia Saavedra underwent a heart catheterization today and that revealed chronic total occlusion of the right coronary artery. I want to thank you for allowing us to participate in her care and please do not hesitate to call if you have any questions or concerns. Sincerely, MMJF / KATHYAN: [id number] /
== END ==
LOC: CATHCVL 10:41
PROVIDERS: ATTEND Internal Medicine Interventional Cardiology
DX: I25.110 Atherosclerotic heart disease of native coronary artery with unstable angina pectoris (principal); I25.82 Chronic total occlusion of coronary artery; I10 Essential (primary) hypertension; Z72.0 Tobacco use; Z82.49 Family history of ischemic heart disease and other diseases of the circulatory system; Z95.5 Presence of coronary angioplasty implant and graft; I71.01 Dissection of thoracic aorta; Z79.82 Long term (current) use of aspirin; Z79.899 Other long term (current) drug therapy
CPT/HCPCS: 93458; C1769; C1894; J2001; J3010; J1644; Q9967; J2250

== ENCOUNTER → 2019-08-05 | Outpatient (CLI) | payer BC ==
--- NOTE | 2019-08-06 13:47 | MM ---
Reason for exam: screening (asymptomatic). Last mammogram was performed 3 years and 9 months ago. History: Patient is postmenopausal. Family history of breast cancer in cousin. Physical Findings: A clinical breast exam by your physician is recommended on an annual basis and results should be correlated with mammographic findings. MG 3D Screening Mammo W/Cad Bilateral CC and MLO view(s) were taken. Prior study comparison: October 30, 2015, bilateral MG screening mammo w CAD. June 19, 2009, bilateral digital screening mammogram. There are scattered fibroglandular densities. 11-12 o'clock nodularity left breast appears new. Two nodules redemonstrated left MLO view, now two seen on the CC view, whereas only larger was seen previously. ASSESSMENT: Incomplete: need additional imaging evaluation, BI-RAD 0 RECOMMENDATION: Special view mammogram of the left breast. (3D lateral) Ultrasound of the left breast. (10-4 o'clock) [facility] will attempt to contact patient to return for supplemental views and ultrasound.
== END | disposition home or self-care (01) ==
LOC: RADMAMWWP 15:09
PROVIDERS: ATTEND Internal Medicine
DX: Z12.31 Encounter for screening mammogram for malignant neoplasm of breast (principal)
CPT/HCPCS: 77063; 77067

== ENCOUNTER → 2019-08-20 | Outpatient (CLI) | payer BC ==
[2019-08-20 16:32] VITALS: BP 172/99; PULSE 75; RESP 20; TEMP 97.6; BMI 32.7
--- NOTE | 2019-08-20 16:50 | P.GSHP ---
History of Present Illness H&P Date: 08/20/19 Chief Complaint: abnormal left breast ultrasound The patient is a 59 year old white female with a complaint of a mammogram and ultrasound showing two areas of concern in the left breast. Her last mammogram prior to this was approximately 3 years ago. This was a routine screening mammogram. On radiograph she was noted to have 2 areas of concern in the left breast which will be demonstrated by ultrasound and ultrasound-guided core biopsy of these areas was recommended. The patient does not feel any lumps or masses in her breast. She is not complaining of any pain in her breast. She has no nipple discharge of concern or skin changes in the breast of concern. She has no history of any infection or trauma to the breast. Us. Family history: 1.brother: tongue cancer 2. maternal aunt: bone cancer 3. paternal grandmother: breast cancer Hormonal History: menarche: 12 , breast fed: no, age at : 25 menopause: hysterectomy at 40, took both ovaries done for bleeding BCP: 1 1/2 year hormones: 6 months after hysterectomy Past Surgical Hysterectomy: 1. hysterectomy and bilateral oophrectomy 2. cholycystectomy 3. two heart stints Medical History: 1 CAD 2. diverticulosis 3. asthma Social History: smoke: 1/2 PPD 45 years alcohol: none drugs: none - Constitutional Constitutional: Denies chills, Denies fever - EENT Eyes: denies blurred vision, denies pain Ears: deny: decreased hearing, tinnitus Ears, nose, mouth and throat: Denies headache, Denies sore throat - Breasts Breasts: bilateral: as per HPI - Cardiovascular Comment: coronary artery diseases with stints which are not working at this time Cardiovascular: Reports high blood pressure - Respiratory Comment: smoker, asthma - Gastrointestinal Comment: diverticulitis, reflux Gastrointestinal: Denies abdominal pain, Denies diarrhea, Denies nausea, Denies vomiting - Genitourinary (Female) Genitourinary: Denies dysuria, Denies hematuria - Menstruation Menstruation: Reports post hysterectomy - Musculoskeletal Comment: back pain arthitis - Integumentary Comment: eczema - Neurological Comment: carpal tunnel Neurological: Reports numbness, Reports weakness - Psychiatric Psychiatric: Reports anxiety - Endocrine Comment: hypothyroid Endocrine: Reports fatigue, Denies weight change - Hematologic/Lymphatic Comment: none - Allergic/Immunologic Allergic/Immunologic: Reports seasonal allergies Past Medical History Past Medical History: Asthma, Coronary Artery Disease (CAD), COPD, GERD/Reflux, Hypertension Additional Past Medical History / Comment(s): HIATAL HERNIA, PAST ESOPHAGITIS, DIVERTICULITIS History of Any Multi-Drug Resistant Organisms: None Reported Past Surgical History: Cholecystectomy, Heart Catheterization With Stent, Hysterectomy Additional Past Surgical History / Comment(s): EBG W/ BX PT STATED WAS NEG, COLONOSCOPY Past Anesthesia/Blood Transfusion Reactions: No Reported Reaction Additional Past Anesthesia/Blood Transfusion Reaction / Comment(s): CLAUSTERPHOBIA Date of Last Stent Placement:: 2005 Smoking Status: Current every day smoker - Past Family History Brother(s) Family Medical History: Cancer Mother Family Medical History: Hypertension, Myocardial Infarction ([place]) Additional Family Medical History / Comment(s): 4 MONTHS AFTER HUSBANDFROM "COMPLICATIONS OF A BROKEN HEART" Father Additional Family Medical History / Comment(s): RHEUMATIC FEVER TWICE CHILD. HAD VALVE REPLACEMENT Medications and Allergies Home Medications Medication Instructions Recorded Confirmed Type Metoprolol Succinate (ER) [Toprol 50 mg PO DAILY 01/19/18 03/14/19 History XL] Omeprazole 40 mg PO DAILY #30 capsule. 01/24/18 03/13/19 Rx Umeclidinium [place] [Incruse 1 puff INHALATION HS 03/13/19 03/13/19 History Ellipta] Aspirin 325 mg PO ONCE 03/14/19 03/14/19 History Allergies Allergy/AdvReac Type Severity Reaction Status Date / Time No Known Allergies Allergy Verified 08/20/19 16:23 Surgical - Exam BMI 32.7 - General well developed, well nourished, no distress - Eyes normal ocular movement, no icteric - ENT no hearing loss, no congestion - Neck no masses, trachea midline - Respiratory ronchi on left side normal respiratory effort, clear to auscultation right: wheezing - Cardiovascular Rhythm: regular Heart Sounds: normal: S1, S2 - Abdomen Abdomen: soft, non tender, no guarding, no rigid, no rebound - Integumentary normal turgor, small cyst in left axilla probable sebacous cyst - Neurologic no disoriented, no combative - Musculoskeletal normal gait - Psychiatric oriented to time, oriented to person, oriented to place, speech is normal, memory intact breast exam: BRA 38DD Right breast: Multi-positional exam no dominant masses or nodules of concern Right axilla: No adenopathy of concern Left breast: Multi-positional exam fibrocystic changes no dominant masses or nodules of concern Left axilla: No adenopathy of concern Results mammogram and ultrasound reviewed Assessment and Plan Assessment: Impression: 1. abnormal mammogram 2. abnormal ultrasound 3. asthma 4. nicotine dependance 5. coronary artery disease 6. reflux 7. diverticular disease 8. cyst axilla Risk and benefits discussed with the patient and she wishes to proceed. Plan: 1. Ultrasound guided biopsy of 2 areas of concern in the left breast 2. Medical management of medical conditions 3. resect axillary lesion after biopsy done and results reviewed Cc: Dr. Lopez
== END | disposition home or self-care (01) ==
LOC: WWCWWP 16:13
PROVIDERS: ATTEND Surgery
DX: Z53.9 Procedure and treatment not carried out, unspecified reason (principal)

== ENCOUNTER → 2019-08-20 | Outpatient (CLI) | payer BC ==
--- NOTE | 2019-08-21 09:25 | MM ---
Reason for exam: additional evaluation requested from abnormal screening. Last mammogram was performed less than 1 month ago. History: Patient is postmenopausal. Family history of breast cancer in maternal cousin at age 50 and breast cancer in paternal grandmother. Physical Findings: Nurse did not find any significant physical abnormalities on exam. MG 3D Work Up W/Cad LT CC and MLO view(s) were taken of the left breast. Prior study comparison: August 05, 2019, bilateral MG 3d screening mammo w/cad. October 30, 2015, bilateral MG screening mammo w CAD. The breast tissue is heterogeneously dense. This may lower the sensitivity of mammography. There are round oval circumscribed persistent masses x 3 of the left central and upper outer quadrant. These results were verbally communicated with the patient and result sheet given to the patient on 08/20/19. ASSESSMENT: Incomplete: need additional imaging evaluation, BI-RAD 0 RECOMMENDATION: Ultrasound of the left breast.
--- NOTE | 2019-08-21 09:29 | USB ---
Reason for exam: additional evaluation requested from abnormal screening. History: Patient is postmenopausal. Family history of breast cancer in maternal cousin at age 50 and breast cancer in paternal grandmother. US Breast Workup Limited LT Left limited breast ultrasound including focal area of concern, retroareolar and axilla demonstrates a 0.6 x 0.7 x 0.4cm solid, hypoechoic lesion at 11 o'clock, calcifications internally, shadowing, biopsy recommended, a 0.8 x 0.9 x 0.5cm possibly complicated cyst at 1 o'clock, 6 month follow up recommended, a 1.2 x 1.2 x 0.5cm solid, shadowing lesion at 2 o'clock, biopsy recommended and a 0.6 x 0.5 x 0.4cm mixed lesion at the axilla, sebaceous cyst, known to patient, dermatology consult. These results were verbally communicated with the patient and result sheet given to the patient on 08/20/19. ASSESSMENT: Suspicious, BI-RAD 4 RECOMMENDATION: Ultrasound core biopsy of the left breast. (x 2, 11 o'clock and 2 o'clock) Called Dr. Lopez with mammographic findings and has scheduled an appointment for the patient for 09/12/19 at 4:[address] Smims. Biopsy scheduled for 08/27/19 at 2:00. PRELIMINARY REPORT CALLED AND FAXED TO DR. SIMMS ON 08/21/19.
== END | disposition home or self-care (01) ==
LOC: RADMAMWWP 14:10
PROVIDERS: ATTEND Internal Medicine
DX: N63.20 Unspecified lump in the left breast, unspecified quadrant (principal); N63.21 Unspecified lump in the left breast, upper outer quadrant; R92.8 Other abnormal and inconclusive findings on diagnostic imaging of breast; Z78.0 Asymptomatic menopausal state; Z80.3 Family history of malignant neoplasm of breast
CPT/HCPCS: 77061; 77065

== ENCOUNTER 2019-08-23 13:06 | Inpatient (IN) | payer BC ==
[2019-08-23] MEDS ORDERED: NITROGLYCERIN SL TABS 0.4 MG TAB SUBLINGUAL STA ×3 (13:37)
[2019-08-23] MEDS ORDERED: ASPIRIN 81 MG PO STA (13:37)
--- NOTE | 2019-08-23 13:39 | ED ---
General Adult HPI - General Chief complaint: Arrhythmia/Palpitations Stated complaint: High BP Time Seen by Provider: 08/23/19 13:27 Source: patient, family, RN notes reviewed Mode of arrival: ambulatory Limitations: no limitations - History of Present Illness Initial comments: Patient is a pleasant 59-year-old female presenting to the emergency department with concerns for blood pressure. Patient states she has been having some shortness of breath for several days and chest discomfort starting today. Chest discomfort is somewhat mild rated 4/10. Discomfort is described as an ache. No associated nausea. Patient has been sweaty. - Related Data Home Medications Medication Instructions Recorded Confirmed Metoprolol Succinate (ER) [Toprol 50 mg PO BID 01/19/18 08/21/19 XL] Umeclidinium [place] [Incruse 1 puff INHALATION HS 03/13/19 08/21/19 Ellipta] Aspirin 81 mg PO ONCE 03/14/19 08/21/19 Atorvastatin [Lipitor] 40 mg PO DAILY 08/21/19 08/21/19 Isosorbide Mononitrate [Isosorbide 30 mg PO DAILY 08/21/19 08/21/19 Mononitrate ER] Omeprazole 40 mg PO DAILY 08/21/19 08/21/19 Allergies Allergy/AdvReac Type Severity Reaction Status Date / Time levofloxacin [From Levaquin] AdvReac Cough Verified 08/23/19 13:12 lisinopril AdvReac Cough Verified 08/23/19 13:12 Review of Systems ROS Statement: Those systems with pertinent positive or pertinent negative responses have been documented in the HPI. ROS Other: All systems not noted in ROS Statement are negative. Constitutional: Denies: fever Eyes: Denies: eye pain ENT: Denies: ear pain Respiratory: Reports: as per HPI, dyspnea. Denies: cough Cardiovascular: Reports: chest pain Endocrine: Denies: fatigue Gastrointestinal: Denies: abdominal pain, nausea Genitourinary: Denies: dysuria Musculoskeletal: Denies: back pain Skin: Denies: rash Neurological: Denies: weakness Past Medical History Past Medical History: Hypertension Additional Past Medical History / Comment(s): HIATAL HERNIA, PAST ESOPHAGITIS, DIVERTICULITIS History of Any Multi-Drug Resistant Organisms: None Reported Past Surgical History: Cholecystectomy, Heart Catheterization With Stent, Hysterectomy Additional Past Surgical History / Comment(s): EBG W/ BX PT STATED WAS NEG, COLONOSCOPY Past Anesthesia/Blood Transfusion Reactions: No Reported Reaction Additional Past Anesthesia/Blood Transfusion Reaction / Comment(s): CLAUSTERPHOBIA Date of Last Stent Placement:: 2005 Past Psychological History: No Psychological Hx Reported Smoking Status: Current every day smoker Past Alcohol Use History: None Reported Past Drug Use History: None Reported - Past Family History Brother(s) Family Medical History: Cancer Additional Family Medical History / Comment(s): tongue cancer Mother Family Medical History: Hypertension, Myocardial Infarction ([place]) Additional Family Medical History / Comment(s): 4 MONTHS AFTER HUSBANDFROM "COMPLICATIONS OF A BROKEN HEART" Father Additional Family Medical History / Comment(s): RHEUMATIC FEVER TWICE CHILD. HAD VALVE REPLACEMENT General Exam Limitations: no limitations General appearance: alert Head exam: Present: atraumatic Eye exam: Present: normal appearance Neck exam: Present: normal inspection Respiratory exam: Present: normal lung sounds bilaterally. Absent: chest wall tenderness Cardiovascular Exam: Present: regular rate, normal rhythm Expanded Peripheral pulses: 2+: Radial (R), Radial (L), Posterior Tibialis (R), Posterior Tibialis (L), Dorsalis Pedis (R), Dorsalis Pedis (L) GI/Abdominal exam: Present: soft. Absent: tenderness Extremities exam: Present: normal inspection. Absent: pedal edema, calf tenderness Neurological exam: Present: alert Psychiatric exam: Present: normal affect, normal mood Skin exam: Present: normal color Course Vital Signs 08/23/19 08/23/19 08/23/19 13:10 13:43 13:50 Temperature 98.2 F Pulse Rate 133 H 120 H 126 H Respiratory 22 20 20 Rate Blood Pressure 197/123 209/129 192/142 O2 Sat by Pulse 98 95 93 L Oximetry 08/23/19 13:55 Temperature Pulse Rate 137 H Respiratory 20 Rate Blood Pressure 200/124 O2 Sat by Pulse 93 L Oximetry - Reevaluation(s) Reevaluation #1: 08/23/19 13:38 Case was discussed with Dr. Warner and EKG was sent to him. 08/23/19 13:42 Case was again discussed with Dr. Warner who will come in to see the patient, and also discussed with Dr. Thornton. 08/23/19 13:56 Dr. Warner reviewed old EKG and would like patient to go to the [facility]. [facility] was notified 08/23/19 14:13 Case discussed in detail with Dr. Mayes, covering for Dr. mcmahan, who will admit. 08/23/19 14:13 Patient reevaluated and updated. EKG Findings - EKG Comments: EKG Findings:: Sinus tachycardia 123. FL 128. QRS 104. QT 322. QTC 460. Normal axis. Inferior Q waves with suspicion for elevation. ST depression in aVL. Medical Decision Making - Medical Decision Making Chest x-ray suspicious for possible edema or atypical pneumonia. BNP was added. Patient is going to [facility] at this time. - Lab Data Result diagrams: 08/23/19 13:30 08/23/19 13:30 Lab Results 08/23/19 08/23/19 08/23/19 Range/Units 13:30 13:30 13:30 WBC 19.1 H (3.8-10.6) k/uL RBC 5.50 H (3.80-5.40) m/uL Hgb 16.0 (11.4-16.0) gm/dL Hct 47.6 H (34.0-46.0) % MCV 86.6 (80.0-100.0) fL MCH 29.1 (25.0-35.0) pg MCHC 33.6 (31.0-37.0) g/dL RDW 13.8 (11.5-15.5) % Plt Count 451 H (150-450) k/uL Neutrophils % 88 % Lymphocytes % 6 % Monocytes % 4 % Eosinophils % 0 % Basophils % 1 % Neutrophils # 16.8 H (1.3-7.7) k/uL Lymphocytes # 1.1 (1.0-4.8) k/uL Monocytes # 0.8 (0-1.0) k/uL Eosinophils # 0.1 (0-0.7) k/uL Basophils # 0.1 (0-0.2) k/uL PT 9.7 (9.0-12.0) sec INR 0.9 (<1.2) APTT 23.1 (22.0-30.0) sec D-Dimer 0.47 (<0.60) mg/L FEU Sodium 141 (137-145) mmol/L Potassium 4.2 (3.5-5.1) mmol/L Chloride 101 (98-107) mmol/L Carbon Dioxide 24 (22-30) mmol/L Anion Gap 16 mmol/L BUN 23 H (7-17) mg/dL Creatinine 1.06 H (0.52-1.04) mg/dL Est GFR (CKD-EPI)AfAm 67 (>60 ml/min/1.73 sqM) Est GFR (CKD-EPI)NonAf 58 (>60 ml/min/1.73 sqM) Glucose 151 H (74-99) mg/dL Calcium 10.5 H (8.4-10.2) mg/dL Magnesium 1.8 (1.6-2.3) mg/dL Total Bilirubin 0.6 (0.2-1.3) mg/dL AST 52 H (14-36) U/L ALT 25 (9-52) U/L Alkaline Phosphatase 113 (38-126) U/L Total Protein 8.6 H (6.3-8.2) g/dL Albumin 4.9 (3.5-5.0) g/dL - Radiology Data Radiology results: image reviewed (Chest x-ray shows some interstitial changes but could be on the basis of pneumonia or interstitial edema.) Disposition Clinical Impression: ACS (acute coronary syndrome), Hypertension Disposition: ADMITTED IP TO THIS [facility] Condition: Serious Is patient prescribed a controlled substance at d/c from ED?: No Referrals: Caleb Lopez MD [Primary Care Provider] - 1-2 days Decision Time: 13:58
[2019-08-23 13:49] LABS: Basophils # (A) 0.1 k/uL (0-0.2); Basophils % (A) 1 %; Eosinophils # (A) 0.1 k/uL (0-0.7); Eosinophils % (A) 0 %; HCT 47.6 % (34.0-46.0); Lymphocytes # (A) 1.1 k/uL (1.0-4.8); Lymphocytes % (A) 6 %; MCH 29.1 pg (25.0-35.0); MCHC 33.6 g/dL (31.0-37.0); MCV 86.6 fL (80.0-100.0); Mean Platelet Volume 6.2; Monocytes # (A) 0.8 k/uL (0-1.0); Monocytes % (A) 4 %; Neutrophils # (A) 16.8 k/uL (1.3-7.7); Neutrophils % (A) 88 %; Platelet Count 451 k/uL (150-450); RDW 13.8 % (11.5-15.5); WBC 19.1 k/uL (3.8-10.6)
[2019-08-23] MEDS ORDERED: HEPARIN SODIUM,PORCINE 5,000 UNIT/ML 1 ML VIAL IV ONE (13:55)
[2019-08-23] MEDS ORDERED: HEPARIN SODIUM,PORCINE 5,000 UNIT/ML 1 ML VIAL IV PRN (13:55)
[2019-08-23 13:57] LABS: Albumin 4.9 g/dL (3.5-5.0); Calcium 10.5 mg/dL (8.4-10.2); Magnesium 1.8 mg/dL (1.6-2.3); Potassium 4.2 mmol/L (3.5-5.1); Total Bilirubin 0.6 mg/dL (0.2-1.3); Total Protein 8.6 g/dL (6.3-8.2)
[2019-08-23] MEDS ORDERED: HEPARIN SOD,PORK IN 0.45% NACL 25,000 UNIT in 0.45% NACL 1 250ML.BAG IV SCH (14:00)
[2019-08-23 14:03] LABS: D-Dimer 0.47 mg/L FEU (<0.60); INR 0.9 (<1.2); Partial Thromboplastin Time 23.1 sec (22.0-30.0); Prothrombin Time 9.7 sec (9.0-12.0)
--- NOTE | 2019-08-23 14:10 | XR ---
EXAMINATION TYPE: XR chest 1V portable DATE OF EXAM: 08/23/2019 COMPARISON: 05/13/2013 HISTORY: Chest pain and dyspnea. History of asthma. TECHNIQUE: Single frontal view of the chest is obtained. FINDINGS: There is new diffuse interstitial prominence. No focal consolidation, pleural effusion or pneumothorax. Cardiomediastinal silhouette is nonenlarged. Slight right hemidiaphragm elevation is si milar to the prior. No acute osseous pathology. IMPRESSION: New diffuse interstitial prominence that may be on the basis of atypical pneumonia or mi ld interstitial pulmonary edema.
[2019-08-23] MEDS ORDERED: NITROGLYCERIN SL TABS 0.4 MG TAB SUBLINGUAL ONE ×2 (14:17→14:32)
[2019-08-23] MEDS ORDERED: METOPROLOL TARTRATE 5 MG/5 ML VIAL IVP ONE ×3 (14:18→14:25)
[2019-08-23] MEDS ORDERED: NITROGLYCERIN SL TABS 0.4 MG TAB SUBLINGUAL PRN (14:19)
[2019-08-23] MEDS ORDERED: MIDAZOLAM 2 MG/2 ML VIAL IVP ONE (14:20)
[2019-08-23] MEDS ORDERED: LIDOCAINE 1% INJ 10MG/ML (20 ML MDV) SQ ONE (14:20)
[2019-08-23] MEDS ORDERED: SODIUM CHLORIDE 0.9% 1,000 ML IV ONE (14:21)
[2019-08-23] MEDS ORDERED: VERAPAMIL SYRINGE (5 MG/10 ML) INTRAARTER ONE (14:22)
[2019-08-23] MEDS ORDERED: NITROGLYCERIN 1000MCG/10ML SYRINGE INTRAARTER ONE (14:25)
[2019-08-23] MEDS ORDERED: IOPAMIDOL-370 100ML BTL INJ ONE (14:31)
--- NOTE | 2019-08-23 14:35 | CONS ---
CONSULTATION This is a 59-year-old lady with a known history of CAD, hypertension, and hyperlipidemia, who sees Dr. Thornton in the outpatient setting. In March of this year she underwent a cardiac cath which revealed a totally occluded RCA, which was stented in 2006 with good collaterals from the left system. She was advised medical therapy but came into the hospital today with chest pain of about 4/10 with anxiety and heaviness and pressure in the chest radiating to both upper extremities. She was also diaphoretic apparently. Apparently, her son had a seizure this morning and after that she became very anxious and then went on to have chest pain. EKG revealed inferior ST elevation with Q-waves. Compared to the old EKG, the ST segments are more prominent and she is having ongoing chest pain. She has a noncritical disease in the left system. Given her presentation and ongoing chest pain, I recommended coronary angiography. Dr. Thornton is busy; therefore, I am going to perform coronary angiography. 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 I explained her the rationale, risks, benefits, options and she understands all details and wishes to proceed with coronary angiography and PCI if indicated. PAST MEDICAL HISTORY: 1. Prior PCI of RCA with a known occlusion based on cardiac cath from March. 2. Hypertension. 3. Hyperlipidemia. MEDICATIONS: Medications at home include metoprolol succinate 50 mg b.i.d., she uses an inhaler, atorvastatin 40 mg daily, aspirin 81 daily, Imdur 30 mg daily, omeprazole 40 mg daily. ALLERGIES: She is allergic to LEVAQUIN and LISINOPRIL. PHYSICAL EXAMINATION: On examination, blood pressure is 140/70, pulse rate is about 120 per minute, sinus. HEENT: Unremarkable. Fundus was not examined by me. Neck is supple. There is no JVD. I do not hear a carotid bruit. Heart exam reveals S1, S2 heard normally with tachycardia. No significant murmurs. Lungs reveal diminished air entry. Abdomen is soft, nontender. Lower extremities reveal diminished pulses. No edema. Central nervous system is grossly within normal limits. EKG revealed sinus mechanism with inferior mild ST elevation and Q-waves. Cannot exclude this being ST elevation NE. Patient is, however, tachycardic. IMPRESSION: 1. Acute ischemic syndrome, possibly rule out any progression of disease, although cardiac cath from May did not show significant disease in the left system. 2. Hypertension. 3. Hyperlipidemia. 4. History of smoking and chronic obstructive pulmonary disease. RECOMMENDATION: I am recommending coronary angiography and based on the findings intervention. Rationale risks, benefits, options were explained to the patient. No family is available at this time. MMODL / IJN: [id number] /
[2019-08-23] MEDS ORDERED: amLODIPine 5 MG TAB PO ONE (14:41)
[2019-08-23] MEDS ORDERED: SODIUM CHLORIDE 0.9% 1,000 ML IV SCH (15:00)
[2019-08-23] MEDS: METOPROLOL TARTRATE 50 MG TAB PO SCH ×2 (15:14→20:12)
[2019-08-23 15:33] VITALS: BMI 33.3
[2019-08-23] MEDS ORDERED: LABETALOL 200 MG TAB PO STA (16:34)
[2019-08-23] MEDS ORDERED: AZITHROMYCIN 500 MG in SODIUM CHLORIDE 0.9% 250 ML IVPB SCH (17:00)
[2019-08-23] MEDS: AZITHROMYCIN 500 MG TAB PO SCH (17:27)
--- NOTE | 2019-08-23 19:48 | CC ---
CARDIAC CATHETERIZATION REPORT DATE OF SERVICE: 08/23/2019 PROCEDURE: Left heart catheterization and coronary angiography. PERFORMED BY: Dr. Sofiya Warner. Moderate conscious sedation time was 21 minutes. Patient was administered Versed. Oxygen saturation, hemodynamics and EKG were monitored closely. CLINICAL INFORMATION: Mrs. Altagracia Saavedra is a 59-year-old lady, a smoker with hypertension, who is known to have CAD with RCA stenting in the past. Catheterization from March revealed total occlusion of the RCA with collaterals from left to right system. She came in with chest pain, had more prominent inferior ST-segment elevation, and was therefore advised coronary angiography. Risks, benefits, options and rationale were explained. PROCEDURE NOTE: Under local anesthesia and strict aseptic precautions, a 6-Chinese introducer was placed in the right radial artery. Using JL3.5 and JR4.0 catheters, I performed coronary angiography, and the same right catheter was used to check LV pressure. LV gram was not performed. The catheter and sheath were taken out and TR band applied as per protocol. Saturation in the fingers of the right hand was 94%. CARDIAC CATHETERIZATION FINDINGS: The left ventricular end-diastolic pressure was 24 mmHg with no gradient across the aortic valve. CORONARY ANGIOGRAPHY FINDINGS: RIGHT CORONARY ARTERY: This is a dominant vessel, totally occluded, without much antegrade flow. There are 2 small acute marginals that come off and there is a small acute marginal branch that provides collaterals to the distal RCA. Therefore there are ipsilateral collaterals noted. This RCA was stented in 2006 and is now totally occluded just to the proximal portion of the stent. LEFT MAIN CORONARY ARTERY: Short, patent, disease-free vessel that bifurcates into LAD and circumflex. LEFT ANTERIOR DESCENDING CORONARY ARTERY: Good-caliber vessel extends along the anterior wall, gives off several septal and diagonal branches. Septal branches are quite large in caliber and they provide rich collaterals to the distal RCA and all the branches of RCA, including the main trunk. There is competitive flow in the distal LAD at the apex. Either there is a small subtotal occlusion or there are rich collaterals causing competitive flow, but no significant stenosis is noted in the LAD. About a 30% to 35% mid narrowing is noted with mild to moderate calcification. All branches of LAD are patent. Septals have some narrowing in the ostium, but they are of good caliber and provide rich collaterals to the distal branches of the RCA. LEFT POSTERIOR CIRCUMFLEX CORONARY ARTERY: Nondominant vessel gives off a large obtuse marginal that runs laterally, divides into 2 branches, tortuous. Mild calcification, 30% to 35% narrowing. No significant disease. COLLATERAL CIRCULATION: There is a rich network of collaterals coming from the distal branch of the LAD and circumflex opacifying the distal branch of the RCA as well as the main trunk. Left ventriculogram was not performed. FINAL IMPRESSION: This patient has total occlusion of the RCA and mild to moderate disease in the left system with rich collaterals to the distal branches of the RCA. The distal LAD seems to have some competitive flow and it was quite small on the previous cardiac catheterization; possibility of some occlusion in the distal apical portion of the LAD cannot be totally excluded, but there are rich collaterals in this area as well, and the entire RCA distal branches are opacified. Circumflex does not have significant disease. RECOMMENDATIONS: Findings were discussed with the patient and family. Continued medical therapy with risk factor modification advised. He will have an echocardiogram. I suspect the patient has [id number] SD with hypertension and ST-segment changes and some amount of oxygen mismatch in view of her accelerated hypertension. We will optimize medical therapy and send her to the telemetry unit. Patient is currently pain-free and EKG has improved remarkably. MMODL / IJN: [id number] /
[2019-08-23] MEDS: NITROGLYCERIN OINT 1 INCH/GM PACKET TOPICAL SCH ×2 (20:11→23:44)
[2019-08-23] MEDS: SODIUM CHLORIDE 0.9% 1,000 ML IV SCH (20:12)
[2019-08-23] MEDS: IPRATROPIUM-ALBUTEROL 3 ML NEB INHALATION SCH (20:38)
--- NOTE | 2019-08-23 21:54 | P.HPIM ---
History of Present Illness H&P Date: 08/23/19 Chief Complaint: Chest pain Patient is a 59-year-old female with a known history of hypertension, coronary artery disease with history of stent placement, asthma, history of [place] and pneumonia came to ER with complaints of chest pain started this morning. Chest pain mainly left retrosternal 4 out of 10 in severity. Sharp pain worsens with deep breathing and cough. No associated nausea vomiting. No radiation of the pain. Patient has been sweaty and felt feverish at home. Patient has been having shortness of breath for the past 1 week and patient thought she was having pneumonia again. Chest x-ray showed new diffuse interstitial prominence with possible atypical pn eumonia. EKG showed sinus tachycardia with T-wave inversions in inferior leads. WBC 19 Patient was taken to cardiac catheterization due to EKG abnormality. Patient was found to have patent stents.. Review of Systems Constitutional: Patient denies any fever or chills . Patient was having sweating. No generalized weakness or weight loss. Abdomen: Patient denied nausea vomiting and diarrhea and abdominal pain. Cardiovascular: Patient does have chest pain and short of breath no palpitations. Respiratory: patient denied any cough is from production. No shortness of breath Neurologic: Patient denied any numbness or tingling headache. Musculoskeletal: Patient denies any complaints of joint swelling or deformity. Skin: Negative Psychiatric: Negative Endocrine: No heat or cold intolerance. No recent weight gain. Genitourinary: No dysuria or hematuria. All other 14 point ROS negative except the above Past Medical History Past Medical History: Asthma, Coronary Artery Disease (CAD), COPD, Hypertension, Myocardial Infarction ([place]), Pneumonia Additional Past Medical History / Comment(s): HIATAL HERNIA, PAST ESOPHAGITIS, DIVERTICULITIS Last Myocardial Infarction Date:: UNKNOWN History of Any Multi-Drug Resistant Organisms: None Reported Past Surgical History: Cholecystectomy, Heart Catheterization With Stent, Hysterectomy Additional Past Surgical History / Comment(s): EGD W/ BX PT STATED WAS NEG, COLONOSCOPY Past Anesthesia/Blood Transfusion Reactions: No Reported Reaction Additional Past Anesthesia/Blood Transfusion Reaction / Comment(s): CLAUSTERPHOBIA Date of Last Stent Placement:: 2005 Past Psychological History: No Psychological Hx Reported Smoking Status: Current every day smoker Past Alcohol Use History: None Reported Additional Past Alcohol Use History / Comment(s): SMOKES 1/2 PPD SINCE AGE 18 Past Drug Use History: None Reported - Past Family History Brother(s) Family Medical History: Cancer Additional Family Medical History / Comment(s): tongue cancer Mother Family Medical History: Hypertension, Myocardial Infarction ([place]) Additional Family Medical History / Comment(s): 4 MONTHS AFTER HUSBANDFROM "COMPLICATIONS OF A BROKEN HEART" Father Additional Family Medical History / Comment(s): RHEUMATIC FEVER TWICE CHILD. HAD VALVE REPLACEMENT Medications and Allergies Home Medications Medication Instructions Recorded Confirmed Type Metoprolol Succinate (ER) [Toprol 50 mg PO BID 01/19/18 08/23/19 History XL] Omeprazole 40 mg PO DAILY 08/21/19 08/23/19 History Atorvastatin [Lipitor] 40 mg PO HS 08/23/19 08/23/19 History Isosorbide Mononitrate [Isosorbide 30 mg PO DAILY 08/23/19 08/23/19 History Mononitrate ER] methylPREDNISolone Dose Pack 1 tab PO DIRECTED 08/23/19 08/23/19 History [Medrol Dose Pack] Allergies Allergy/AdvReac Type Severity Reaction Status Date / Time levofloxacin [From Levaquin] AdvReac Cough Verified 08/23/19 13:12 lisinopril AdvReac Cough Verified 08/23/19 13:12 Physical Exam Vitals: Vital Signs Temp Pulse Pulse Resp BP BP Pulse Ox 08/23/19 14:56 97.8 F 90 16 193/101 96 08/23/19 13:55 137 H 20 200/124 93 L 08/23/19 13:50 126 H 20 192/142 93 L 08/23/19 13:43 120 H 20 209/129 95 08/23/19 13:10 98.2 F 133 H 22 197/123 98 Intake and Output 08/23/19 08/23/19 08/23/19 06:59 14:59 22:59 Intake Total 50 Balance 50 Intake: IV 50 Other: Weight 74.843 kg PHYSICAL EXAMINATION: Patient is lying in the bed comfortably, no acute distress, awake alert and oriented.. HEENT: Normocephalic. Neck is supple. Pupils reactive. Nostrils clear. Oral cavity is moist. Ears reveal no drainage. Neck reveals no JVD, carotid bruits, or thyromegaly. CHEST EXAMINATION: Trachea is central. Symmetrical expansion. Bibasilar diminished air entry and scattered rhonchi and mild wheezing. CARDIAC: Normal S1, S2 with no gallops. No murmurs ABDOMEN: Soft. Bowel sounds normal. No organomegaly. No abdominal bruits. Extremities: reveal no edema. No clubbing or cyanosis Neurologically awake, alert, oriented x3 with well-coordinated movements. No focal deficits noted Skin: No rash or skin lesions. Psychiatric: Coperative. Nonsuicidal Musculoskeletal: No joint swelling or deformity. Normal range of motion. Results CBC & Chem 7: 08/23/19 13:30 08/23/19 13:30 Labs: Abnormal Lab Results - Last 24 Hours (Table) 08/23/19 08/23/19 08/23/19 Range/Units 13:30 13:30 13:30 WBC 19.1 H (3.8-10.6) k/uL RBC 5.50 H (3.80-5.40) m/uL Hct 47.6 H (34.0-46.0) % Plt Count 451 H (150-450) k/uL Neutrophils # 16.8 H (1.3-7.7) k/uL BUN 23 H (7-17) mg/dL Creatinine 1.06 H (0.52-1.04) mg/dL Glucose 151 H (74-99) mg/dL Calcium 10.5 H (8.4-10.2) mg/dL AST 52 H (14-36) U/L Troponin I 0.076 H* (0.000-0.034) ng/mL Total Protein 8.6 H (6.3-8.2) g/dL Thrombosis Risk Factor Assmnt - DVT/VTE Prophylaxis DVT/VTE Prophylaxis: Pharmacologic Prophylaxis ordered - Choose All That Apply Any of the Below Risk Factors Present?: No Other Risk Factors: No Other congenital or acquired thrombophilia - If yes, enter type in comment: No Thrombosis Risk Factor Assessment Level: Very Low Risk Assessment and Plan Assessment: Chest pain. ruled out ACS. Status post cardiac cath patient with patent stents. Diffuse interstitial infiltrates and possible atypical pneumonia Leukocytosis with WBC count 19 Hypertensive urgency Coronary artery disease with history of stent placement History of asthma/COPD Hypertension History of [place] History of pneumonia Claustrophobia Ongoing Nicotine addiction DVT prophylaxis patient is already on heparin drip Plan: Patient will be continued on telemetry monitoring and continue with aspirin, statins and beta blockers. Continue with home blood pressure medications including Norvasc and losartan. Patient will be started on antibiotics ceftriaxone and azithromycin. Follow-up CBC and BMP tomorrow. Cardiology is on board. Continue with duo nebs and further recommendations based on the clinical course. Continue to follow closely and oxygen therapy. Smoking cessation has been counseled extensively. Time with Patient: Greater than 30
[2019-08-23] MEDS: amLODIPine 5 MG TAB PO SCH (23:41)
[2019-08-23] MEDS: LOSARTAN 50 MG TAB PO SCH (23:44)
[2019-08-24 04:43] LABS: Hemoglobin A1C 6.1 % (4.0-6.0)
[2019-08-24] MEDS: NITROGLYCERIN OINT 1 INCH/GM PACKET TOPICAL SCH ×3 (06:21→15:19)
[2019-08-24 07:19] LABS: Basophils # (A) 0.1 k/uL (0-0.2); Basophils % (A) 1 %; Eosinophils # (A) 0.1 k/uL (0-0.7); Eosinophils % (A) 1 %; HCT 41.9 % (34.0-46.0); HGB 13.5 gm/dL (11.4-16.0); Lymphocytes # (A) 1.5 k/uL (1.0-4.8); Lymphocytes % (A) 12 %; MCH 28.1 pg (25.0-35.0); MCHC 32.2 g/dL (31.0-37.0); MCV 87.2 fL (80.0-100.0); Mean Platelet Volume 6.4; Monocytes # (A) 0.9 k/uL (0-1.0); Monocytes % (A) 7 %; Neutrophils # (A) 10.1 k/uL (1.3-7.7); Neutrophils % (A) 79 %; Platelet Count 296 k/uL (150-450); RDW 13.6 % (11.5-15.5); WBC 12.8 k/uL (3.8-10.6)
[2019-08-24 07:31] LABS: Potassium 4.3 mmol/L (3.5-5.1)
[2019-08-24] MEDS: IPRATROPIUM-ALBUTEROL 3 ML NEB INHALATION SCH ×4 (08:41→20:43)
[2019-08-24] MEDS: SODIUM CHLORIDE 0.9% 1,000 ML IV SCH (09:54)
[2019-08-24] MEDS: ASPIRIN 325 MG TAB PO SCH (09:55)
[2019-08-24] MEDS: ATORVASTATIN 80 MG TAB PO SCH (09:55)
[2019-08-24] MEDS: AZITHROMYCIN 500 MG TAB PO SCH (09:55)
[2019-08-24] MEDS: METOPROLOL TARTRATE 50 MG TAB PO SCH ×3 (09:55→19:44)
[2019-08-24] MEDS: FUROSEMIDE 10 MG/ML 2 ML VIAL IV SCH ×2 (10:11→19:44)
--- NOTE | 2019-08-24 10:56 | P.PN ---
Subjective Progress Note Date: 08/24/19 Principal diagnosis: Acute coronary syndrome This is a 59-year-old female patient with a past medical history significant for coronary artery disease, hypertension, and dyslipidemia, presented to the emergency room yesterday with a chest discomfort and EKG changes concerning for severe underlying coronary artery disease. She underwent a heart catheterization by Dr. Warner and she was found to have chronic total occlusion of the RCA as well as chronic total occlusion of the distal LAD. The RCA fills by [id number] collateral and the LAD fills by left to left collateral. On follow-up with her today, she stated that she is short of breath and she has been coughing. No fever or chills. No chest pain or chest discomfort. On examination she seems to be wet and has a crackles bilaterally. She is on antibiotic at this point for possible underlying pneumonia. When she came in her BNP was elevated. I am going to obtain an echocardiogram was Doppler and also start the patient on small dose of Lasix IV. Objective - Vital Signs Vital signs: Vital Signs Temp 98.8 F 08/24/19 08:00 Pulse 89 08/24/19 08:51 Resp 17 08/24/19 08:00 BP 140/73 08/24/19 08:00 Pulse Ox 96 08/24/19 08:00 Intake & Output 08/23/19 08/24/19 08/24/19 18:59 06:59 18:59 Intake Total 410 222 360 Balance 410 222 360 Weight 74.843 kg 75.3 kg Intake: IV 50 Oral 360 222 360 Other: # Voids 1 1 - Constitutional General appearance: Present: no acute distress - Respiratory Respiratory: bilateral: rales - Cardiovascular Rhythm: regular Heart sounds: normal: S1, S2 - Labs CBC & Chem 7: 08/24/19 06:19 08/24/19 06:19 Labs: Abnormal Lab Results - Last 24 Hours (Table) 08/23/19 08/23/19 08/23/19 Range/Units 13:30 13:30 13:30 WBC 19.1 H (3.8-10.6) k/uL RBC 5.50 H (3.80-5.40) m/uL Hct 47.6 H (34.0-46.0) % Plt Count 451 H (150-450) k/uL Neutrophils # 16.8 H (1.3-7.7) k/uL BUN 23 H (7-17) mg/dL Creatinine 1.06 H (0.52-1.04) mg/dL Glucose 151 H (74-99) mg/dL Hemoglobin A1c (4.0-6.0) % Calcium 10.5 H (8.4-10.2) mg/dL AST 52 H (14-36) U/L Troponin I 0.076 H* (0.000-0.034) ng/mL Total Protein 8.6 H (6.3-8.2) g/dL Triglycerides (<150) mg/dL Cholesterol (<200) mg/dL LDL Cholesterol, Calc (0-99) mg/dL HDL Cholesterol (40-60) mg/dL 08/23/19 08/23/19 08/24/19 Range/Units 19:15 19:15 01:27 WBC (3.8-10.6) k/uL RBC (3.80-5.40) m/uL Hct (34.0-46.0) % Plt Count (150-450) k/uL Neutrophils # (1.3-7.7) k/uL BUN (7-17) mg/dL Creatinine (0.52-1.04) mg/dL Glucose (74-99) mg/dL Hemoglobin A1c 6.1 H (4.0-6.0) % Calcium (8.4-10.2) mg/dL AST (14-36) U/L Troponin I 8.190 H* 18.000 H* (0.000-0.034) ng/mL Total Protein (6.3-8.2) g/dL Triglycerides (<150) mg/dL Cholesterol (<200) mg/dL LDL Cholesterol, Calc (0-99) mg/dL HDL Cholesterol (40-60) mg/dL 08/24/19 08/24/19 Range/Units 06:19 06:19 WBC 12.8 H (3.8-10.6) k/uL RBC (3.80-5.40) m/uL Hct (34.0-46.0) % Plt Count (150-450) k/uL Neutrophils # 10.1 H (1.3-7.7) k/uL BUN 21 H (7-17) mg/dL Creatinine (0.52-1.04) mg/dL Glucose 112 H (74-99) mg/dL Hemoglobin A1c (4.0-6.0) % Calcium (8.4-10.2) mg/dL AST (14-36) U/L Troponin I (0.000-0.034) ng/mL Total Protein (6.3-8.2) g/dL Triglycerides 262 H (<150) mg/dL Cholesterol 260 H (<200) mg/dL LDL Cholesterol, Calc 169 H (0-99) mg/dL HDL Cholesterol 39 L (40-60) mg/dL Assessment and Plan Assessment: Assessment #1 acute non-ST deviation myocardial infarction #2 possible component of congestive heart failure exacerbation of unknown etiology #3 hypertension #4 dyslipidemia Plan #1 continue the current medical regimen #2 add Plavix to the current medical regimen. The troponin is elevated and she ruled out for acute non-ST patient myocardial infarction #3 add Lasix the current medical regimen #4 increase the dose of metoprolol for better heart rate and blood pressure control #5 obtain an echocardiogram was Doppler #6 follow-up with the patient
--- NOTE | 2019-08-24 13:47 | ECHOF ---
Referral Reason:POST HEART CATH MEASUREMENTS -------- HEIGHT: 149.9 cm WEIGHT: 74.8 kg BP: 130/68 RVIDd: 3.1 cm (< 3.3) IVSd: 1.8 cm (0.6 - 1.1) LVIDd: 4.1 cm (3.9 - 5.3) LVPWd: 2.0 cm (0.6 - 1.1) IVSs: 2.4 cm LVIDs: 2.9 cm LVPWs: 2.2 cm LAESV Index (A-L): 33.14 ml/m Ao Diam: 2.7 cm (2.0 - 3.7) AV Cusp: 2.0 cm (1.5 - 2.6) LA Diam: 3.4 cm (2.7 - 3.8) MV EXCURSION: 19.436 mm (> 18.000) MV EF SLOPE: 82 mm/s (70 - 150) EPSS: 0.8 cm MV E Mo: 1.01 m/s MV DecT: 151 ms MV A Mo: 0.74 m/s MV E/A Ratio: 1.36 RAP: 5.00 mmHg RVSP: 18.48 mmHg TAPSE: 22.65 mm FINDINGS -------- Sinus rhythm with extra systolic beats. This was a technically adequate study. The left ventricular size is normal. There is severe concentric left ventricular hypertrophy. Ove rall left ventricular systolic function is moderately impaired with, an EF between 35 - 40 %. The d iastolic filling pattern is normal for the age of the patient 24.78. Apical anterior LV wall motion is hypokinetic. Apical lateral LV wall motion is hypokinetic. Apical inferior LV wall motion i s hypokinetic. Apical septum LV wall motion is hypokinetic. The right ventricle is normal in size. LA is midly dilated 29-33ml/m2. The right atrial size is normal. Interatrial and interventricular septum intact. The aortic valve is trileaflet and appears structurally normal. There is no evidence of aortic regu rgitation. There is no evidence of aortic stenosis. Mild mitral regurgitation is present. Mild tricuspid regurgitation present. There is no evidence of pulmonary hypertension. The right v entricular systolic pressure, as measured by Doppler, is 18.48mmHg. Trace/mild (physiologic) pulmonic regurgitation. The aortic root size is normal. Normal inferior vena cava with normal inspiratory collapse consistent with estimated right atrial pre ssure of 5 mmHg. There is no pericardial effusion. CONCLUSIONS -------- 1. Sinus rhythm with extra systolic beats. 2. This was a technically adequate study. 3. The left ventricular size is normal. 4. There is severe concentric left ventricular hypertrophy. 5. Overall left ventricular systolic function is moderately impaired with, an EF between 35 - 40 %. 6. The diastolic filling pattern is normal for the age of the patient 24.78 7. Apical anterior LV wall motion is hypokinetic. 8. Apical lateral LV wall motion is hypokinetic. 9. Apical inferior LV wall motion is hypokinetic. 10. Apical septum LV wall motion is hypokinetic. 11. The right ventricle is normal in size. 12. LA is midly dilated 29-33ml/m2. 13. The right atrial size is normal. 14. Interatrial and interventricular septum intact. 15. The aortic valve is trileaflet and appears structurally normal. 16. There is no evidence of aortic regurgitation. 17. There is no evidence of aortic stenosis. 18. Mild mitral regurgitation is present. 19. Mild tricuspid regurgitation present. 20. There is no evidence of pulmonary hypertension. 21. The right ventricular systolic pressure, as measured by Doppler, is 18.48mmHg. 22. Trace/mild (physiologic) pulmonic regurgitation. 23. The aortic root size is normal. 24. Normal inferior vena cava with normal inspiratory collapse consistent with estimated right atrial pressure of 5 mmHg. 25. There is no pericardial effusion. [employer] PROFESSOR: Kajal Marrufo SHI
[2019-08-24] MEDS: LOSARTAN 50 MG TAB PO SCH (19:43)
[2019-08-24] MEDS: amLODIPine 5 MG TAB PO SCH (19:44)
[2019-08-25] MEDS: NITROGLYCERIN OINT 1 INCH/GM PACKET TOPICAL SCH ×4 (00:06→15:29)
[2019-08-25] MEDS: IPRATROPIUM-ALBUTEROL 3 ML NEB INHALATION SCH ×4 (07:28→20:40)
[2019-08-25] MEDS: FUROSEMIDE 10 MG/ML 2 ML VIAL IV SCH ×2 (08:29→20:07)
[2019-08-25] MEDS: CLOPIDOGREL 75 MG TAB PO SCH (08:30)
[2019-08-25] MEDS: ASPIRIN 325 MG TAB PO SCH (08:30)
[2019-08-25] MEDS: AZITHROMYCIN 500 MG TAB PO SCH (08:30)
[2019-08-25] MEDS: ATORVASTATIN 80 MG TAB PO SCH (08:30)
[2019-08-25] MEDS: METOPROLOL TARTRATE 50 MG TAB PO SCH ×3 (08:30→23:16)
[2019-08-25 08:54] LABS: HGB 14.5 gm/dL (11.4-16.0); MCH 29.4 pg (25.0-35.0); MCHC 33.6 g/dL (31.0-37.0); MCV 87.6 fL (80.0-100.0); Mean Platelet Volume 6.6; Platelet Count 316 k/uL (150-450); RBC 4.91 m/uL (3.80-5.40); RDW 13.9 % (11.5-15.5)
[2019-08-25 08:59] LABS: Calcium 9.4 mg/dL (8.4-10.2); Potassium 3.6 mmol/L (3.5-5.1)
--- NOTE | 2019-08-25 12:21 | P.PN ---
Subjective Progress Note Date: 08/25/19 Principal diagnosis: Acute coronary syndrome This is a 59-year-old female patient with a past medical history significant for coronary artery disease, hypertension, and dyslipidemia, presented to the emergency room yesterday with a chest discomfort and EKG changes concerning for severe underlying coronary artery disease. She underwent a heart catheterization by Dr. Warner and she was found to have chronic total occlusion of the RCA as well as chronic total occlusion of the distal LAD. The RCA fills by [id number] collateral and the LAD fills by left to left collateral. On follow-up with the patient today, she stated that she is feeling better than yesterday. Yesterday she was wheezing and having crackles and because of that she was started on Lasix. She has been diuresing very well. The echocardiogram showed impaired LV function with EF around 35-40%. I am going to continue the current medical regimen and add Aldactone to the current medical regimen and pos sible discharge in the next 24 hours. Objective - Vital Signs Vital signs: Vital Signs Temp 98.5 F 08/25/19 08:00 Pulse 62 08/25/19 11:29 Resp 14 08/25/19 08:00 BP 117/57 08/25/19 08:00 Pulse Ox 94 L 08/25/19 08:00 Intake & Output 08/24/19 08/25/19 08/25/19 18:59 06:59 18:59 Intake Total 1455 120 260 Output Total 500 Balance 1455 -380 260 Weight 73 kg Intake: IV 475 20 Invasive Line 1 50 Invasive Line 3 20 Sodium Chloride 0.9% 1, 375 000 ml @ 75 mls/hr IV . [id number] [facility] Rx#:[id number] cefTRIAXone 1 gm In 50 Sodium Chloride 0.9% 50 ml @ 100 mls/hr IVPB Q24HR [facility] Rx#:[id number] Oral 980 120 240 Output: Urine 500 Other: # Voids 2 3 - Constitutional General appearance: Present: no acute distress - Respiratory Respiratory: bilateral: CTA - Cardiovascular Rhythm: regular Heart sounds: normal: S1, S2 - Labs CBC & Chem 7: 08/25/19 08:38 08/25/19 08:38 Labs: Abnormal Lab Results - Last 24 Hours (Table) 08/25/19 Range/Units 08:38 BUN 19 H (7-17) mg/dL Glucose 208 H (74-99) mg/dL Assessment and Plan Assessment: Assessment #1 acute non-ST deviation myocardial infarction #2 congestive heart failure exacerbation related to systolic dysfunction #3 ischemic cardiomyopathy was EF between 35-40% #4 hypertension #5 dyslipidemia Plan #1 continue the IV Lasix for additional 24 hours #2 add Aldactone to the current medical regimen #3 continue dual antiplatelet therapy along with a statin #4 possible discharge in the next 24 hours
[2019-08-25] MEDS: amLODIPine 5 MG TAB PO SCH (20:07)
[2019-08-25] MEDS: LOSARTAN 50 MG TAB PO SCH (20:07)
--- NOTE | 2019-08-26 00:35 | P.PN ---
Subjective Progress Note Date: 08/24/19 Principal diagnosis: Chest pain. Ruled out ACS. Pneumonia. Patient is a 59-year-old female with a known history of hypertension, coronary artery disease with history of stent placement, asthma, history of [place] and pneumonia came to ER with complaints of chest pain started this morning. Chest pain mainly left retrosternal 4 out of 10 in severity. Sharp pain worsens with deep breathing and cough. No associated nausea vomiting. No radiation of the pain. Patient has been sweaty and felt feverish at home. Patient has been having shortness of breath for the past 1 week and patient thought she was having pneumonia again. Chest x-ray showed new diffuse interstitial prominence with possible atypical pneumonia. EKG showed sinus tachycardia with T-wave inversions in inferior leads. WBC 19 Patient was taken to cardiac catheterization due to EKG abnormality. Patient was found to have chronic total occlusion of RCA as well as chronic total occlusion of the distal LAD.The RCA fills by [id number] collateral and the LAD fills by left to left collateral. 08/24/2019 Patient's was having shortness of breath this morning likely due to fluid overload. Patient was given a dose of IV Lasix which seemed to improve her shortness of breath. Otherwise patient is being continued on antibiotics for pneumonia. 2-D echocardiogram was ordered. Cardiology is following. No fever no chills. Leukocytosis is improving. No cough or sputum production. Current medications reviewed. Objective - Vital Signs Vital signs: Vital Signs Temp 98.5 F 08/25/19 08:00 Pulse 92 08/25/19 08:00 Resp 14 08/25/19 08:00 BP 117/57 08/25/19 08:00 Pulse Ox 94 L 08/25/19 08:00 Intake & Output 08/24/19 08/25/19 08/25/19 18:59 06:59 18:59 Intake Total 1455 120 260 Output Total 500 Balance 1455 -380 260 Weight 73 kg Intake: IV 475 20 Invasive Line 1 50 Invasive Line 3 20 Sodium Chloride 0.9% 1, 375 000 ml @ 75 mls/hr IV . [id number] [facility] Rx#:[id number] cefTRIAXone 1 gm In 50 Sodium Chloride 0.9% 50 ml @ 100 mls/hr IVPB Q24HR [facility] Rx#:[id number] Oral 980 120 240 Output: Urine 500 Other: # Voids 2 3 - Exam PHYSICAL EXAMINATION: Patient is lying in the bed comfortably, no acute distress, awake alert and oriented.. HEENT: Normocephalic. Neck is supple. Pupils reactive. Nostrils clear. Oral cavity is moist. Ears reveal no drainage. Neck reveals no JVD, carotid bruits, or thyromegaly. CHEST EXAMINATION: Trachea is central. Symmetrical expansion. Bibasilar crackles otherwise Lung canela clear to auscultation and percussion. CARDIAC: Normal S1, S2 with no gallops. No murmurs ABDOMEN: Soft. Bowel sounds normal. No organomegaly. No abdominal bruits. Extremities: reveal no edema. No clubbing or cyanosis Neurologically awake, alert, oriented x3 with well-coordinated movements. No focal deficits noted Skin: No rash or skin lesions. Psychiatric: Coperative. Nonsuicidal Musculoskeletal: No joint swelling or deformity. Normal range of motion. - Labs CBC & Chem 7: 08/25/19 08:38 08/25/19 08:38 Labs: Abnormal Lab Results - Last 24 Hours (Table) 08/25/19 Range/Units 08:38 BUN 19 H (7-17) mg/dL Glucose 208 H (74-99) mg/dL Assessment and Plan Assessment: Chest pain. ruled out ACS. Status post cardiac cath. Diffuse interstitial infiltrates and possible atypical pneumonia Leukocytosis with WBC count 19--12.8 Hypertensive urgency. Blood pressure is improved. Coronary artery disease with history of stent placement History of asthma/COPD Hypertension History of ME History of pneumonia Claustrophobia Ongoing Nicotine addiction DVT prophylaxis patient is already on heparin drip Plan: Patient will be continued on telemetry monitoring and continue with aspirin, statins and beta blockers. Continue with home blood pressure medications including Norvasc and losartan. Metoprolol 50 mg twice a day was added. Patient will be started on antibiotics ceftriaxone and azithromycin. Follow-up CBC and BMP tomorrow. Cardiology is on board. Continue with duo nebs and further recommendations based on the clinical course. Continue to follow closely and oxygen therapy. Smoking cessation has been counseled extensively. Time with Patient: Greater than 30
--- NOTE | 2019-08-26 00:47 | P.PN ---
Subjective Progress Note Date: 08/25/19 Principal diagnosis: Chest pain. Ruled out ACS. Pneumonia. Patient is a 59-year-old female with a known history of hypertension, coronary artery disease with history of stent placement, asthma, history of [place] and pneumonia came to ER with complaints of chest pain started this morning. Chest pain mainly left retrosternal 4 out of 10 in severity. Sharp pain worsens with deep breathing and cough. No associated nausea vomiting. No radiation of the pain. Patient has been sweaty and felt feverish at home. Patient has been having shortness of breath for the past 1 week and patient thought she was having pneumonia again. Chest x-ray showed new diffuse interstitial prominence with possible atypical pneumonia. EKG showed sinus tachycardia with T-wave inversions in inferior leads. WBC 19 Patient was taken to cardiac catheterization due to EKG abnormality. Patient was found to have chronic total occlusion of RCA as well as chronic total occlusion of the distal LAD.The RCA fills by [id number] collateral and the LAD fills by left to left collateral. 08/24/2019 Patient's was having shortness of breath this morning likely due to fluid overload. Patient was given a dose of IV Lasix which seemed to improve her shortness of breath. Otherwise patient is being continued on antibiotics for pneumonia. 2-D echocardiogram was ordered. Cardiology is following. No fever no chills. Leukocytosis is improving. No cough or sputum production. 08/25/2019 Patient says that her breathing is better today. Currently being continued on breathing treatments and antibiotics. Leukocytosis is normalized. Otherwise 2- D echocardiogram showed ejection fraction 35-40%. Patient is being continued on IV Lasix 20 mg twice daily. Aldactone was added as per Cardiology recommendations. Otherwise patient denied any complaints of chest pain. No fever no chills. Patient is diuresing well. Current medications reviewed. Active Medications Albuterol/Ipratropium (Duoneb 0.5 Mg-3 Mg/3 Ml Soln) 3 ml INHALATION RT-QID [facility] Last Admin: 08/25/19 20:40 Dose: Not Given Documented by: Amlodipine Besylate (Norvasc) 5 mg PO HS [facility] Last Admin: 08/25/19 20:07 Dose: 5 mg Documented by: Aspirin (Aspirin) 325 mg PO DAILY [facility] Last Admin: 08/25/19 08:30 Dose: 325 mg Documented by: Atorvastatin Calcium (Lipitor) 80 mg PO DAILY [facility] Last Admin: 08/25/19 08:30 Dose: 80 mg Documented by: Azithromycin (Zithromax) 500 mg PO DAILY [facility] Last Admin: 08/25/19 08:30 Dose: 500 mg Documented by: Clopidogrel Bisulfate (Plavix) 75 mg PO DAILY [facility] Last Admin: 08/25/19 08:30 Dose: 75 mg Documented by: Furosemide (Lasix) 20 mg IV Q12HR [facility] Last Admin: 08/25/19 20:07 Dose: 20 mg Documented by: Ceftriaxone Sodium 1 gm/ (Sodium Chloride) 50 mls @ 100 mls/hr IVPB Q24HR [facility] Last Admin: 08/25/19 08:29 Dose: 100 mls/hr Documented by: Losartan Potassium (Cozaar) 50 mg PO HS [facility] Last Admin: 08/25/19 20:07 Dose: 50 mg Documented by: Metoprolol Tartrate (Lopressor) 50 mg PO TID [facility] Last Admin: 08/25/19 23:16 Dose: 50 mg Documented by: Nitroglycerin (Nitro-Bid Oint) 1 inch TOPICAL Q6HR [facility] Last Admin: 08/25/19 15:29 Dose: Not Given Documented by: Nitroglycerin (Nitrostat) 0.4 mg SUBLINGUAL Q5M PRN PRN Reason: Chest Pain Spironolactone (Aldactone) 25 mg PO DAILY [facility] Objective - Vital Signs Vital signs: Vital Signs Temp 98.5 F 08/25/19 20:05 Pulse 87 08/25/19 20:05 Resp 16 08/25/19 20:05 BP 174/77 08/25/19 20:05 Pulse Ox 94 L 08/25/19 20:05 Intake & Output 08/25/19 08/25/19 08/26/19 06:59 18:59 06:59 Intake Total 120 520 Output Total 500 Balance -380 520 Weight 73 kg Intake: IV 40 Invasive Line 3 40 Oral 120 480 Output: Urine 500 Other: # Voids 3 1 - Exam PHYSICAL EXAMINATION: Patient is lying in the bed comfortably, no acute distress, awake alert and oriented.. HEENT: Normocephalic. Neck is supple. Pupils reactive. Nostrils clear. Oral cavity is moist. Ears reveal no drainage. Neck reveals no JVD, carotid bruits, or thyromegaly. CHEST EXAMINATION: Trachea is central. Symmetrical expansion. Bibasilar crackle s otherwise Lung canela clear to auscultation and percussion. CARDIAC: Normal S1, S2 with no gallops. No murmurs ABDOMEN: Soft. Bowel sounds normal. No organomegaly. No abdominal bruits. Extremities: reveal no edema. No clubbing or cyanosis Neurologically awake, alert, oriented x3 with well-coordinated movements. No focal deficits noted Skin: No rash or skin lesions. Psychiatric: Coperative. Nonsuicidal Musculoskeletal: No joint swelling or deformity. Normal range of motion. - Labs CBC & Chem 7: 08/25/19 08:38 08/25/19 08:38 Labs: Abnormal Lab Results - Last 24 Hours (Table) 08/25/19 Range/Units 08:38 BUN 19 H (7-17) mg/dL Glucose 208 H (74-99) mg/dL Assessment and Plan Assessment: Chest pain. ruled out ACS. Status post cardiac cath. Acute CHF with systolic dysfunction ejection fraction 35-40%. Diffuse interstitial infiltrates and possible atypical pneumonia Leukocytosis with WBC count 19--12.8--10 Hypertensive urgency. Blood pressure is improved. Coronary artery disease with history of stent placement History of asthma/COPD Hypertension History of [place] History of pneumonia Claustrophobia Ongoing Nicotine addiction DVT prophylaxis patient is already on heparin drip Plan: Patient was started on IV Lasix 20 mg twice daily. Patient will be continued on telemetry monitoring and continue with aspirin, statins and beta blockers. Continue with home blood pressure medications including Norvasc and losartan. Metoprolol 50 mg twice a day was added. Aldactone will be added as per cardiology. Patient will be started on antibiotics ceftriaxone and azithromycin. Follow-up CBC and BMP tomorrow. Cardiology is on board. Continue with duo nebs and further recommendations based on the clinical course. Continue to follow closely and oxygen therapy. Smoking cessation has been counseled extensively. Time with Patient: Greater than 30
[2019-08-26] MEDS: NITROGLYCERIN OINT 1 INCH/GM PACKET TOPICAL SCH ×3 (02:05→08:08)
[2019-08-26 05:44] VITALS: RESP 18
[2019-08-26 06:23] LABS: HCT 43.9 % (34.0-46.0); MCV 87.5 fL (80.0-100.0); Mean Platelet Volume 6.7; Platelet Count 300 k/uL (150-450); RBC 5.01 m/uL (3.80-5.40); RDW 14.1 % (11.5-15.5); WBC 7.6 k/uL (3.8-10.6)
[2019-08-26 06:44] LABS: Calcium 9.8 mg/dL (8.4-10.2); Potassium 4.5 mmol/L (3.5-5.1)
[2019-08-26] MEDS: AZITHROMYCIN 500 MG TAB PO SCH (07:27)
[2019-08-26] MEDS: CLOPIDOGREL 75 MG TAB PO SCH (07:27)
[2019-08-26] MEDS: FUROSEMIDE 10 MG/ML 2 ML VIAL IV SCH (07:28)
[2019-08-26] MEDS: METOPROLOL TARTRATE 50 MG TAB PO SCH (07:28)
[2019-08-26] MEDS: ATORVASTATIN 80 MG TAB PO SCH (07:28)
[2019-08-26] MEDS: ASPIRIN 325 MG TAB PO SCH (07:32)
[2019-08-26] MEDS: IPRATROPIUM-ALBUTEROL 3 ML NEB INHALATION SCH ×3 (07:59→15:33)
[2019-08-26] MEDS ORDERED: CARVEDILOL 12.5 MG TAB PO SCH (08:45)
[2019-08-26] MEDS ORDERED: SPIRONOLACTONE 25 MG TAB PO SCH (09:00)
[2019-08-26 11:19] VITALS: PULSE 76
--- NOTE | 2019-08-26 11:39 | P.PN ---
Subjective Patient is resting comfortably in bed no chest discomfort dizziness lightheadedness or palpitations Breath sounds are clear no rhonchi no crackles Heart sounds S1 and S2 soft murmur gallop or rub Abdomen soft nontender Extended warm no edema Blood pressure is well controlled 12/09/2005 5 mmHg pulse rate in the 80s afebrile 98.3F Impression Acute non-ST segment elevation [place] Ischemic cardiac myopathy with congestive heart failure, acute and chronic systolic Hypertension essential Coronary artery disease with a chronically occluded distal LAD and RCA with collateral Left ventricular ejection fraction 35-40%, ischemic cardio myopathy Suggest Stop amlodipine Stop metoprolol Switched to carvedilol 12.5 g twice daily Continue losartan continue aspirin Continue statins Continue spironolactone Dual antiplatelet therapy Patient may go home in the next 24 hours and follow-up with 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51 H (0.52-1.04) mg/dL Glucose 121 H (74-99) mg/dL
[2019-08-26 14:05] VITALS: BP 116/63; TEMP 97.7
[2019-08-26] MEDS ORDERED: FUROSEMIDE 20 MG TAB PO SCH (16:00)
[2019-08-27] MEDS ORDERED: ASPIRIN 81 MG PO SCH (09:00)
== END 2019-08-26 16:34 | disposition home or self-care (01) | DRG 280 ==
LOC: EC 13:06 → 3SCARD 14:21
PROVIDERS: ADMIT Internal Medicine; ATTEND Internal Medicine
PROC: B2111ZZ Fluoroscopy of Multiple Coronary Arteries using Low Osmolar Contrast (ICD-10-PCS; 2019-08-23)
PROC: 4A023N7 Measurement of Cardiac Sampling and Pressure, Left Heart, Percutaneous Approach (ICD-10-PCS; principal; 2019-08-23 14:05)
DX: I21.4 Non-ST elevation (NSTEMI) myocardial infarction (principal); I50.23 Acute on chronic systolic (congestive) heart failure; J18.9 Pneumonia, unspecified organism; J44.0 Chronic obstructive pulmonary disease with (acute) lower respiratory infection; I11.0 Hypertensive heart disease with heart failure; E78.5 Hyperlipidemia, unspecified; Z71.6 Tobacco abuse counseling; F17.210 Nicotine dependence, cigarettes, uncomplicated; F40.240 Claustrophobia; I16.0 Hypertensive urgency; I25.10 Atherosclerotic heart disease of native coronary artery without angina pectoris; I25.2 Old myocardial infarction; I25.5 Ischemic cardiomyopathy; Z79.02 Long term (current) use of antithrombotics/antiplatelets; Z79.82 Long term (current) use of aspirin; Z79.899 Other long term (current) drug therapy; Z80.8 Family history of malignant neoplasm of other organs or systems; Z82.49 Family history of ischemic heart disease and other diseases of the circulatory system; Z87.01 Personal history of pneumonia (recurrent); Z90.710 Acquired absence of both cervix and uterus; Z95.5 Presence of coronary angioplasty implant and graft; K44.9 Diaphragmatic hernia without obstruction or gangrene
CPT/HCPCS: 36415; 71045; 80048; 80053; 80061; 83036; 83735; 83880; 84484; 85025; 85027; 85379; 85610; 85730; 93005; 93306; 93458; 94640; 96374; 99285

== ENCOUNTER → 2019-09-11 | Day surgery (SDC) | payer BC ==
[~2019-09-11] MED LIST changes: -ALPRAZolam 0.25 MG TAB PO PRN; -ASPIRIN 325 MG TAB PO ONE; -HEPARIN SODIUM 1,000 UN/ML (10ML VL) ONE; -IOPAMIDOL-370 125ML BTL INJ ONE; -IV FLUID CONTINUATION 800 ML IV ONE; -LIDOCAINE 1% INJ 10MG/ML (20 ML MDV) ONE; -LIDOCAINE 1% INJ 10MG/ML (20 ML MDV) SQ ONE; +METOPROLOL TARTRATE 5 MG/5 ML VIAL IVP ONE; -MIDAZOLAM (PF) 2 MG/2 ML VIAL IV ONE; +NITROGLYCERIN SL TABS 0.4 MG TAB SUBLINGUAL ONE; -NITROGLYCERIN SL TABS 0.4 MG TAB SUBLINGUAL PRN; -RX INFO: IV CONTRAST WAS GIVEN 1 EACH MISC MISCELLANE PRN; -SODIUM CHLORIDE 0.9% 1,000 ML IV SCH; -SODIUM CHLORIDE 0.9% 1,000 ML in EMPTY BAG 1 BAG IV ONE; +amLODIPine 5 MG TAB ONE; -fentaNYL (PF) 50 MCG/ML 2 ML AMP IV ONE; -fentaNYL (PF) 50 MCG/ML 2 ML AMP ONE
[2019-09-11 13:32] VITALS: RESP 16; BMI 32.3
--- NOTE | 2019-09-11 15:20 | USB ---
EXAMINATION TYPE: US biopsy breast add'l VAD LT, US biopsy breast VAD LT, MG diagnostic mammo LT wo CAD DATE OF EXAM: 09/11/2019 CLINICAL HISTORY: R92.8 abnl mammogram. TECHNIQUE: Ultrasound guided core biopsy of left breast. COMPARISON: Left breast ultrasound dated 08/20/2019 FINDINGS: The procedure of ultrasound guided core biopsy was explained to the patient. Benefits, alternatives, and risks were discussed. An informed consent was then obtained. Preprocedural timeout was performed. Site A (0.7 cm mass at the 11:00 position): The patient was placed in supine positioning for imaging and for the procedure. The overlying skin was prepped and draped in usual sterile fashion. 10 cc of 1% lidocaine was used as anesthetic into the skin and subcutaneous tissue up to area of concern in the left breast. Under ultrasound guidance, a 12-gauge vacuum assisted biopsy gun device was used to obtain 4 core samples. Following this, a ribbon-shaped biopsy marker was left at the site of biopsy. Site B (1.2 cm mass at the 2:00 position): The patient was placed in supine positioning for imaging and for the procedure. The overlying skin was prepped and draped in usual sterile fashion. 10 cc of 1% lidocaine was used as anesthetic into the skin and subcutaneous tissue up to area of concern in the left breast. Under ultrasound guidance, a 12-gauge vacuum assisted biopsy gun device was used to obtain 4 core samples. Following this, a coil-shaped biopsy marker was left at the site of biopsy. The patient tolerated the procedure well without development of small hematomas as the patient was noted to be on 81 mg aspirin recommended to be continued by her speech teacher. The patient was kept in the radiology department for short stay after the procedure and then discharged home in stable condition. Postprocedure mammogram demonstrates appropriate biopsy marker placement. IMPRESSION: Successful, uncomplicated 2 site ultrasound guided core biopsy of masses at the 11:00 and 2:00 position (greater suspicion of the 11:00 mass in the 2:00 mass), full pathology results to follow. Pathology Results: Benign A. LEFT BREAST, SITE A, ELEVEN O'CLOCK, NEEDLE CORE BIOPSIES: Benign breast tissue with fibroadenomatous changes. B. LEFT BREAST, SITE B, TWO O'CLOCK, NEEDLE CORE BIOPSIES: Sclerotic breast parenchyma with fibroadenomatoid change. Recommendation Follow up ultrasound of the left breast in 6 months. [facility]
[2019-09-11 16:46] VITALS: BP 111/71; PULSE 76; TEMP 97.8
== END ==
LOC: RADUSWWP 12:47
PROVIDERS: ATTEND Surgery
DX: D24.2 Benign neoplasm of left breast (principal); N64.89 Other specified disorders of breast
CPT/HCPCS: 88305; 77065; 19083; 19084; A4648; J2001

== ENCOUNTER → 2019-09-19 | Outpatient (CLI) | payer BC ==
[2019-09-19 11:26] VITALS: BP 155/98; PULSE 92; RESP 18; TEMP 97.8; BMI 32.3
--- NOTE | 2019-09-19 11:47 | P.PN ---
Subjective Progress Note Date: 09/19/19 Principal diagnosis: discordant core biopsy at 11 oclock left breast The patient is a 59 year old white female with a complaint of a mammogram and ultrasound showing two areas of concern in the left breast. Her last mammogram prior to this was approximately 3 years ago. This was a routine screening mammogram. On radiograph she was noted to have 2 areas of concern in the left breast which will be demonstrated by ultrasound and ultrasound-guided core biopsy of these areas was recommended. The patient does not feel any lumps or masses in her breast. She is not complaining of any pain in her breast. She had no nipple discharge of concern or skin changes in the breast of concern. She has no history of any infection or trauma to the breast. She underwent ultrasound-guided core biopsies of 2 areas in the breast on [id number]. The lesion at 11:00 was noted to be benign breast tissue with fibroadenomatous change, and the lesion at 2:00 was sclerotic breast tissue with fibroadenomatoid change. The radiographs were reviewed with the radiologist and it was felt that the lesion at 11:00 was discordant. Therefore she was recommended that the patient undergo needle localization and excision of this area. Since the procedure the patient states she has developed some bruising of the breast but otherwise has no complaints. She complains of back pain as well as bilateral shoulder notching secondary to her heavy breasts. Her right breast is larger than her left breast. Family history: 1.brother: tongue cancer 2. maternal aunt: bone cancer 3. paternal grandmother: breast cancer Hormonal History: menarche: 12 , breast fed: no, age at : 25 menopause: hysterectomy at 40, took both ovaries done for bleeding BCP: 1 1/2 year hormones: 6 months after hysterectomy Past Surgical Hysterectomy: 1. hysterectomy and bilateral oophrectomy 2. cholycystectomy 3. two heart stints Medical History: 1 CAD 2. diverticulosis 3. asthma 4. back pain 5. bilateral shoulder notching Social History: smoke: 1/2 PPD 45 years alcohol: none drugs: none - Constitutional Constitutional: Denies chills, Denies fever - EENT Eyes: denies blurred vision, denies pain Ears: deny: decreased hearing, tinnitus Ears, nose, mouth and throat: Denies headache, Denies sore throat - Breasts Breasts: bilateral: as per HPI - Cardiovascular Comment: coronary artery diseases with stints which are not working at this time Cardiovascular: Reports high blood pressure - Respiratory Comment: smoker, asthma - Gastrointestinal Comment: diverticulitis, reflux Gastrointestinal: Denies abdominal pain, Denies diarrhea, Denies nausea, Denies vomiting - Genitourinary (Female) Genitourinary: Denies dysuria, Denies hematuria - Menstruation Menstruation: Reports post hysterectomy - Musculoskeletal Comment: back pain arthitis - Integumentary Comment: eczema - Neurological Comment: carpal tunnel Neurological: Reports numbness, Reports weakness - Psychiatric Psychiatric: Reports anxiety - Endocrine Comment: hypothyroid Endocrine: Reports fatigue, Denies weight change - Hematologic/Lymphatic Comment: none - Allergic/Immunologic Allergic/Immunologic: Reports seasonal allergies Past Medical History Past Medical History: Asthma, Coronary Artery Disease (CAD), COPD, GERD/Reflux, Hypertension Additional Past Medical History / Comment(s): HIATAL HERNIA, PAST ESOPHAGITIS, DIVERTICULITIS History of Any Multi-Drug Resistant Organisms: None Reported Past Surgical History: Cholecystectomy, Heart Catheterization With Stent, Hysterectomy Additional Past Surgical History / Comment(s): EBG W/ BX PT STATED WAS NEG, COLONOSCOPY Past Anesthesia/Blood Transfusion Reactions: No Reported Reaction Additional Past Anesthesia/Blood Transfusion Reaction / Comment(s): CLAUSTERPHOBIA Date of Last Stent Placement:: 2005 Smoking Status: Current every day smoker - Past Family History Brother(s) Family Medical History: Cancer Mother Family Medical History: Hypertension, Myocardial Infarction ([place]) Additional Family Medical History / Comment(s): 4 MONTHS AFTER HUSBANDFROM "COMPLICATIONS OF A BROKEN HEART" Father Additional Family Medical History / Comment(s): RHEUMATIC FEVER TWICE CHILD. HAD VALVE REPLACEMENT Objective - Vital Signs Vital signs: Vital Signs Temp 97.8 F 09/19/19 11:22 Pulse 92 09/19/19 11:22 Resp 18 09/19/19 11:22 BP 155/98 09/19/19 11:22 Pulse Ox 100 09/19/19 11:22 Intake & Output 09/18/19 09/19/19 09/19/19 18:59 06:59 18:59 Weight 72.575 kg - Exam BMI 32.3 - Constitutional General appearance: Present: average body habitus - EENT Eyes: Present: EOMI ENT: Present: hearing grossly normal - Neck Neck: Present: normal ROM - Respiratory Respiratory: bilateral: CTA - Cardiovascular Rhythm: regular Heart sounds: normal: S1, S2 - Gastrointestinal General gastrointestinal: Present: soft - Integumentary Integumentary Comment(s): echymosis at biopsy site left breast Integumentary: Present: normal turgor - Musculoskeletal Musculoskeletal: Present: gait normal - Psychiatric Psychiatric: Present: A&O x's 3, appropriate affect - Additional findings Additional findings: breast exam: bra 38 DD grade 3 ptosis Right breast: Multiple positional exam no dominant masses or nodules of concern; right breast larger than left breast Right axilla: No adenopathy of concern Left breast: Multiple positional exam no dominant masses or nodules of concern, patient with ecchymosis at biopsy site Left axilla: No adenopathy of concern Assessment and Plan Assessment: Impression: 1. Discordant ultrasound core biopsy at 11:00 left breast 2. Fiber cystic breast changes at 2:00 felt to be concordant on left breast 3. Asthma 4. Nicotine dependence 5. Coronary artery disease 6. Reflux 7. Diverticular disease 8. Axillary cyst Plan: 1. Needle local excisional biopsy area of concern in the left breast 2. Medical management of medical conditions with cardiac clearance 3. Excision left axillary lesion 30 minutes spent with the patient, > 50% face to face.
== END ==
LOC: WWCWWP 10:26
PROVIDERS: ATTEND Surgery
DX: Z53.9 Procedure and treatment not carried out, unspecified reason (principal)

== ENCOUNTER 2019-11-15 08:39 | Inpatient (IN) | payer BC ==
[2019-11-15] MEDS ORDERED: SODIUM CHLORIDE 0.9% 1,000 ML IV STA (08:50)
[2019-11-15] MEDS ORDERED: NITROGLYCERIN-D5W PMX 50 MG in DEXTROSE/WATER 1 250ML.BAG IV STA (08:50)
[2019-11-15] MEDS ORDERED: NITROGLYCERIN-D5W PMX 50 MG in DEXTROSE/WATER 1 250ML.BAG IV ONE (08:52)
[2019-11-15] MEDS: NITROGLYCERIN SL TABS 0.4 MG TAB SUBLINGUAL PRN ×2 (08:58→09:05)
--- NOTE | 2019-11-15 09:21 | ED ---
General Adult HPI - General Chief complaint: Shortness of Breath Stated complaint: respiratory distress Time Seen by Provider: 11/15/19 08:50 Source: EMS Mode of arrival: EMS Limitations: no limitations - History of Present Illness Initial comments: Dictation was produced using [employer] dictation software. please excuse any grammatical, word or spelling errors. Chief Complaint: 59 yo Female presents with dyspnea. History of Present Illness: A 59-year-old female she presents with acute onset dyspnea. Patient has a history of asthma, COPD and heart failure. Vision is fairly dyspneic and history is limited. According to EMS patient was dyspneic upon waking this morning. Patient reports she has a history of heart failure. According to EMS she had elevated blood pressures. She was placed on BiPAP transferred to the emergency department. Patient denies any chest pain at this time. She does report that she has a history of heart failure. Unable to obtain secondary to mental status PHYSICAL EXAM: General Impression: Alert and oriented x3, diaphoretic, dyspneic HEENT: Normocephalic atraumatic, extra-ocular movements intact, pupils equal and reactive to light bilaterally, mucous membranes moist. Cardiovascular: Heart regular rate and rhythm, S1&S2 audible, no murmurs, rubs or gallops Chest: Dense diffuse crackles Abdomen: Bowel sounds present, abdomen soft, non-tender, non-distended, no organomegaly Musculoskeletal: Pulses present and equal in all extremities, no peripheral edema Motor: no focal deficits noted Neurological: CN II-XII grossly intact, no focal motor or sensory deficits noted Skin: Intact with no visualized rashes ED course: 59-year-old female presents with chief complaint of dyspnea. Patient evaluated in our resuscitation bay. Vital signs upon arrival shows blood pressure of 221/150, heart rate of 118, respiratory rate 32. Patient was transitioned to our BiPAP machine. [id number] bedside ultrasounds performed showing signs of heart failure and pulmonary edema. Clinical presentation consistent with flash pulmonary edema secondary to hypertensive emergency. Patient given 2 sublingual nitroglycerin started on nitroglycerin drip. Patient reevaluated and has improving symptoms. She is not diaphoretic and is breathing comfortably at this time on BiPAP. Chart review shows that patient has 35-40% check should fraction seen on echocardiogram from August of last year. Patient also had cardiac catheterization at that time showed coronary artery disease. Laboratory evaluation obtained. Mild stenosis of 11.0 likely secondary to stress. Coag panel unremarkable. Metabolic panel shows gap acidosis with a CO2 of 18 and gap of 17. Slight elevation of renal markers. Lactic acidosis of 5.9. Her nitro peptide is 4000. Patient observed in emergency department for several hours patient reevaluated and is in stable medical condition. She is resting comfortably with BiPAP applied. Blood pressure is reduced gradually. Patient be admitted to cardiac telemetry. Discussed patient case with Dr. Rodriguez was went except admission. Cardiology consultation. EKG interpretation: Ventricular rate 120, sinus tachycardia, IL interval 1:30, care is 108, QTc 469. No IL prolongation, no QTC prolongation, no ST or T-wave changes noted. Overall, this EKG is unremarkable - Related Data Home Medications Medication Instructions Recorded Confirmed Omeprazole 40 mg PO DAILY 08/21/19 09/19/19 Previous Rx's Medication Instructions Recorded Aspirin 81 mg PO DAILY #30 chew 08/26/19 Atorvastatin [Lipitor] 80 mg PO DAILY #30 tab 08/26/19 Carvedilol [Coreg*] 12.5 mg PO BID-W/MEALS #60 tab 08/26/19 Clopidogrel [Plavix] 75 mg PO DAILY #30 tab 08/26/19 Losartan [Cozaar] 50 mg PO HS #30 tab 08/26/19 Spironolactone [Aldactone] 25 mg PO DAILY #30 tab 08/26/19 Allergies Allergy/AdvReac Type Severity Reaction Status Date / Time levofloxacin [From Levaquin] AdvReac Cough Verified 11/15/19 11:42 lisinopril AdvReac Cough Verified 11/15/19 11:42 Review of Systems ROS Statement: Those systems with pertinent positive or pertinent negative responses have been documented in the HPI. ROS Other: All systems not noted in ROS Statement are negative. Past Medical History Past Medical History: Asthma, Coronary Artery Disease (CAD), COPD, Hypertension, Myocardial Infarction ([place]), Pneumonia Additional Past Medical History / Comment(s): HIATAL HERNIA, PAST ESOPHAGITIS, DIVERTICULITIS Last Myocardial Infarction Date:: 08-23-2019 History of Any Multi-Drug Resistant Organisms: None Reported Past Surgical History: Cholecystectomy, Heart Catheterization With Stent, Hysterectomy Additional Past Surgical History / Comment(s): EGD W/ BX PT STATED WAS NEG, COLONOSCOPY Past Anesthesia/Blood Transfusion Reactions: No Reported Reaction Additional Past Anesthesia/Blood Transfusion Reaction / Comment(s): CLAUSTERPHOBIA Date of Last Stent Placement:: 2005 Past Psychological History: No Psychological Hx Reported Smoking Status: Former smoker Past Alcohol Use History: None Reported Past Drug Use History: None Reported - Past Family History Brother(s) Family Medical History: Cancer Additional Family Medical History / Comment(s): tongue cancer Mother Family Medical History: Hypertension, Myocardial Infarction ([place]) Additional Family Medical History / Comment(s): 4 MONTHS AFTER HUSBANDFROM "COMPLICATIONS OF A BROKEN HEART" Father Additional Family Medical History / Comment(s): RHEUMATIC FEVER TWICE CHILD. HAD VALVE REPLACEMENT General Exam Limitations: no limitations Course Vital Signs 11/15/19 11/15/19 08:45 09:13 Temperature 98.0 F Pulse Rate 118 H 98 Respiratory 32 H 28 H Rate Blood Pressure 221/158 173/123 O2 Sat by Pulse 100 98 Oximetry Medical Decision Making - Lab Data Result diagrams: 11/15/19 08:47 11/15/19 08:47 Lab Results 11/15/19 11/15/19 11/15/19 Range/Units 08:47 08:47 08:47 WBC 11.0 H (3.8-10.6) k/uL RBC 5.24 (3.80-5.40) m/uL Hgb 14.5 (11.4-16.0) gm/dL Hct 46.6 H (34.0-46.0) % MCV 88.9 (80.0-100.0) fL MCH 27.7 (25.0-35.0) pg MCHC 31.1 (31.0-37.0) g/dL RDW 14.0 (11.5-15.5) % Plt Count 440 (150-450) k/uL Neutrophils % 39 % Lymphocytes % 48 % Monocytes % 5 % Eosinophils % 5 % Basophils % 1 % Neutrophils # 4.2 (1.3-7.7) k/uL Lymphocytes # 5.3 H (1.0-4.8) k/uL Monocytes # 0.5 (0-1.0) k/uL Eosinophils # 0.6 (0-0.7) k/uL Basophils # 0.1 (0-0.2) k/uL Manual Slide Review Performed RBC Morphology Normal PT (9.0-12.0) sec INR (<1.2) APTT (22.0-30.0) sec Sodium 138 (137-145) mmol/L Potassium 5.0 (3.5-5.1) mmol/L Chloride 103 (98-107) mmol/L Carbon Dioxide 18 L (22-30) mmol/L Anion Gap 17 mmol/L BUN 34 H (7-17) mg/dL Creatinine 1.68 H (0.52-1.04) mg/dL Est GFR (CKD-EPI)AfAm 38 (>60 ml/min/1.73 sqM) Est GFR (CKD-EPI)NonAf 33 (>60 ml/min/1.73 sqM) Glucose 262 H (74-99) mg/dL Plasma Lactic Acid Bib 5.9 H* (0.7-2.0) mmol/L Calcium 9.9 (8.4-10.2) mg/dL Magnesium 2.2 (1.6-2.3) mg/dL Total Bilirubin 0.7 (0.2-1.3) mg/dL AST 85 H (14-36) U/L ALT 37 H (4-34) U/L Alkaline Phosphatase 157 H (38-126) U/L Troponin I (0.000-0.034) ng/mL NT-Pro-B Natriuret Pep pg/mL Total Protein 8.2 (6.3-8.2) g/dL Albumin 4.9 (3.5-5.0) g/dL 11/15/19 11/15/19 11/15/19 Range/Units 08:47 08:47 08:47 WBC (3.8-10.6) k/uL RBC (3.80-5.40) m/uL Hgb (11.4-16.0) gm/dL Hct (34.0-46.0) % MCV (80.0-100.0) fL MCH (25.0-35.0) pg MCHC (31.0-37.0) g/dL RDW (11.5-15.5) % Plt Count (150-450) k/uL Neutrophils % % Lymphocytes % % Monocytes % % Eosinophils % % Basophils % % Neutrophils # (1.3-7.7) k/uL Lymphocytes # (1.0-4.8) k/uL Monocytes # (0-1.0) k/uL Eosinophils # (0-0.7) k/uL Basophils # (0-0.2) k/uL Manual Slide Review RBC Morphology PT 9.6 (9.0-12.0) sec INR 0.9 (<1.2) APTT 24.1 (22.0-30.0) sec Sodium (137-145) mmol/L Potassium (3.5-5.1) mmol/L Chloride (98-107) mmol/L Carbon Dioxide (22-30) mmol/L Anion Gap mmol/L BUN (7-17) mg/dL Creatinine (0.52-1.04) mg/dL Est GFR (CKD-EPI)AfAm (>60 ml/min/1.73 sqM) Est GFR (CKD-EPI)NonAf (>60 ml/min/1.73 sqM) Glucose (74-99) mg/dL Plasma Lactic Acid Bib (0.7-2.0) mmol/L Calcium (8.4-10.2) mg/dL Magnesium (1.6-2.3) mg/dL Total Bilirubin (0.2-1.3) mg/dL AST (14-36) U/L ALT (4-34) U/L Alkaline Phosphatase (38-126) U/L Troponin I 0.031 (0.000-0.034) ng/mL NT-Pro-B Natriuret Pep 4370 pg/mL Total Protein (6.3-8.2) g/dL Albumin (3.5-5.0) g/dL Critical Care Time Critical Care Time: Yes (31) Disposition Clinical Impression: Heart failure, Respiratory failure Disposition: ADMITTED IP TO THIS [facility] Condition: Fair Referrals: Caleb Lopez MD [Primary Care Provider] - 1-2 days Decision Time: 11:42
[2019-11-15] MEDS ORDERED: FUROSEMIDE 10 MG/ML 10 ML VIAL IV STA (09:28)
[2019-11-15 09:38] LABS: Albumin 4.9 g/dL (3.5-5.0); Calcium 9.9 mg/dL (8.4-10.2); Magnesium 2.2 mg/dL (1.6-2.3); Total Bilirubin 0.7 mg/dL (0.2-1.3); Total Protein 8.2 g/dL (6.3-8.2)
[2019-11-15 09:44] LABS: INR 0.9 (<1.2); Partial Thromboplastin Time 24.1 sec (22.0-30.0); Prothrombin Time 9.6 sec (9.0-12.0)
[2019-11-15 09:48] LABS: Basophils # (A) 0.1 k/uL (0-0.2); Basophils % (A) 1 %; Eosinophils # (A) 0.6 k/uL (0-0.7); Eosinophils % (A) 5 %; HCT 46.6 % (34.0-46.0); HGB 14.5 gm/dL (11.4-16.0); Lymphocytes # (A) 5.3 k/uL (1.0-4.8); Lymphocytes % (A) 48 %; MCH 27.7 pg (25.0-35.0); MCHC 31.1 g/dL (31.0-37.0); MCV 88.9 fL (80.0-100.0); Monocytes # (A) 0.5 k/uL (0-1.0); Monocytes % (A) 5 %; Neutrophils # (A) 4.2 k/uL (1.3-7.7); Neutrophils % (A) 39 %; Platelet Count 440 k/uL (150-450); RBC 5.24 m/uL (3.80-5.40)
--- NOTE | 2019-11-15 09:48 | XR ---
EXAMINATION TYPE: XR chest 1V portable DATE OF EXAM: 11/15/2019 COMPARISON: 08/23/2019 INDICATION: Dyspnea, short of breath TECHNIQUE: Single frontal view of the chest is obtained. FINDINGS: The heart size is normal. The pulmonary vasculature is normal. There is diffuse increased lung markings slightly greater into the right lower lobe. Atelectasis and pneumonia could be considered. Atypical pulmonary edema should be considered. IMPRESSION: 1. Diffuse increased lung markings slightly greater to the right lower lobe. Differential diagnosis s hould include atelectasis and pneumonia as well as atypical pulmonary edema. Follow-up is recommended .
[2019-11-15] MEDS ORDERED: ASPIRIN 325 MG TAB PO STA (11:38)
[2019-11-15] MEDS: SODIUM CHLORIDE 0.9% 1,000 ML IV SCH (17:11)
[2019-11-15] MEDS ORDERED: LORazepam 0.5 MG TAB PO PRN (18:53)
[2019-11-15] MEDS: FUROSEMIDE 10 MG/ML 4 ML VIAL IV SCH (19:59)
[2019-11-15] MEDS ORDERED: IPRATROPIUM-ALBUTEROL 3 ML NEB INHALATION PRN (20:05)
[2019-11-15 21:34] LABS: Appearance,Urine Clear (Clear); Bilirubin,Urine Negative (Negative); Blood,Urine Negative (Negative); Color,Urine Light Yellow; Glucose,Urine (UA) Negative (Negative); Ketones,Urine Negative (Negative); Leukocyte Esterase,Urine Negative (Negative); Nitrite,Urine Negative (Negative); Protein,Urine Negative (Negative); Specific Gravity,Urine 1.007 (1.001-1.035); Urobilinogen,Urine <2.0 mg/dL (<2.0)
--- NOTE | 2019-11-15 22:27 | HP ---
HISTORY AND PHYSICAL CHIEF COMPLAINT: Shortness of breath. HISTORY OF PRESENT ILLNESS: This 59-year-old woman with a past medical history of multiple medical problems including asthma, CAD, CHF, COPD, GERD, GI bleed, hypertension, myocardial infarction, history of ischemic cardiomyopathy, ejection fraction 35-40% in August 2019; CAD and stent, being followed by Dr. Lopez and Dr. Thornton in the outpatient setting, was complaining shortness of the past several weeks. Because of lack of improvement, patient came to [facility] and patient was found to have CHF acute exacerbation, admitted for evaluation and treatment. Creatinine 1.68 indicating acute on chronic kidney failure also. There is no history of any fever or rigors. No history of headache, loss of consciousness, seizures. The patient also reports some weight gain. PAST MEDICAL HISTORY: History of asthma, CAD, CHF, COPD, hypertension, history of pneumonia, history of CAD, stent. MEDICATIONS: 1. Cozaar 12.5 mg daily. 2. Ventolin 2.5 q.6h. 3. Omeprazole 40 mg. 4. Ativan 0.5 mg p.r.n. 5. Plavix 75 mg daily. 6. Coreg 12.5 mg b.i.d. with meals. 7. Lipitor 80 mg daily. 8. Aspirin 81 mg. ALLERGIES: LEVAQUIN AND LISINOPRIL. FAMILY HISTORY: History of tongue cancer in the family. SOCIAL HISTORY: Previous history of smoking. No history of current smoking or alcohol intake. REVIEW OF SYSTEMS: ENT: No diminished vision or hearing. CARDIOVASCULAR SYSTEM: As mentioned earlier. RESPIRATORY: As mentioned earlier. GI: No nausea, vomiting. : As mentioned earlier. NERVOUS SYSTEM: No numbness or weakness. ALLERGY/IMMUNOLOGY: No asthma or hay fever. MUSCULOSKELETAL: As mentioned earlier. HEMATOLOGY/ONCOLOGY: Anemia. ENDOCRINE: No history of diabetes or hypothyroidism. CONSTITUTIONAL: As mentioned earlier. DERMATOLOGY: Negative. RHEUMATOLOGY: Negative. PSYCHIATRY: As mentioned earlier. PHYSICAL EXAMINATION: Alert and oriented x3. Pulse 89, blood pressure 160/60, respiration 20, temperature 98.7, pulse ox 98% on 2 L. HEENT: Conjunctivae normal. Oral mucosa moist. NECK: No jugular venous distention. No lymph node enlargement. CARDIOVASCULAR: S1, S2. RESPIRATORY: Diminished breath sounds at the bases. Bilateral scattered rhonchi and basilar crackles. ABDOMEN: Soft, nontender. No mass palpable. LEGS: No edema, no swelling. NERVOUS SYSTEM: Higher functions mentioned earlier. Moves all four limbs. No focal deficits. LYMPHATICS: No lymph node in neck or axilla. SKIN: No rash. JOINTS: No active deforming arthropathy. LABS: WBC 11, hemoglobin 14.5, sodium 130, potassium 5 and lactic acid is 5.9. Troponin 0.031 and 0.051. AST is 85, ALT is 37 and BNP is 4370. ASSESSMENT: 1. Congestive heart failure acute exacerbation with acute on chronic systolic dysfunction, ejection fraction 35-40%. 2. Possible ischemic cardiomyopathy history. 3. Increased creatinine with acute renal failure, possible acute tubular necrosis. 4. Increased AST, ALT, possibly hepatitis, mild secondary to congestive heart failure. 5. Increased WBC. 6. History of asthma, chronic obstructive pulmonary disease. 7. History of gastroesophageal reflux disease. 8. History of gastrointestinal bleed. 9. Hypertension. 10.History of pneumonia. 11.History of sleep apnea. 12.History of chronic short-segment abdominal aortic dissection. 13.History of hiatal hernia. 14.History of esophagitis. 15.History of chronic bilateral carpal tunnel syndrome. 16.History of coronary artery disease, stent. 17.History of cholecystectomy. 18.Obesity with body mass of 32.3. RECOMMENDATIONS AND DISCUSSION: This 59-year-old woman who presented with multiple complex medical issues, we will monitor the patient closely, continue the current medication, continue symptomatic treatment. Otherwise, at this time I would recommend IV diuretics cautiously, monitor creatinine closely, monitor fluid/electrolyte balance closely, fluid restriction 1200 mL for 24 hours. Adjust medications. Follow closely with Cardiology. Resume the home medications. Prognosis guarded. Further recommendations to follow. In 2018 the patient had abdominal and pelvis CAT scan which showed ( ) ectasia of the infrarenal abdominal aorta. I would also recommend ultrasound of the abdomen also for followup with abdominal aortic aneurysm. Prognosis guarded, further recommendations to follow. MMODL / IJN: [id number] /
[2019-11-16] MEDS: CARVEDILOL 12.5 MG TAB PO SCH ×2 (06:24→16:49)
[2019-11-16] MEDS: PANTOPRAZOLE 40 MG TABLET PO SCH (06:24)
[2019-11-16 06:30] LABS: Basophils # (A) 0.1 k/uL (0-0.2); Basophils % (A) 1 %; Eosinophils # (A) 0.4 k/uL (0-0.7); Eosinophils % (A) 5 %; HCT 39.5 % (34.0-46.0); Lymphocytes # (A) 1.9 k/uL (1.0-4.8); Lymphocytes % (A) 24 %; MCH 28.2 pg (25.0-35.0); MCHC 32.9 g/dL (31.0-37.0); MCV 85.6 fL (80.0-100.0); Monocytes # (A) 0.6 k/uL (0-1.0); Monocytes % (A) 8 %; Neutrophils # (A) 4.8 k/uL (1.3-7.7); Neutrophils % (A) 60 %; Platelet Count 343 k/uL (150-450); RBC 4.62 m/uL (3.80-5.40); RDW 13.8 % (11.5-15.5)
[2019-11-16 06:43] LABS: Calcium 9.6 mg/dL (8.4-10.2); Potassium 3.6 mmol/L (3.5-5.1)
[2019-11-16] MEDS: IPRATROPIUM-ALBUTEROL 3 ML NEB INHALATION SCH ×3 (08:19→20:26)
--- NOTE | 2019-11-16 08:56 | P.CRDCN ---
History of Present Illness Consult date: 11/16/19 Requesting physician: Patel Rodriguez Consult reason: congestive heart failure Chief complaint: Shortness of breath History of present illness: This is a pleasant 59-year-old female who follows regularly with Dr. Pugh in the office. She has a known history of coronary artery disease he is with prior stenting of the totally occluded RCA in 2006, in August of this past year patient underwent a cardiac catheterization by Dr. Catherine Warner, patient was found to have a total occlusion of the RCA and mild to moderate disease in the left system with collaterals to the distal branches of the RCA. The distal LAD had some competitive flow and was quite small, possibility of some occlusion in the distal apical portion could not be excluded. Circumflex did not have disease, medical therapy was advised at that time. Patient also underwent an echocardiogram with Doppler study on that visit which revealed an ejection fraction of 35-40%. Patient also has history of hypertension, hyperlipidemia. Patient presents to the hospital with symptoms of progressively worsening shortness of breath which she states has been going on for the past few months, progressively worsening. She does have some PND and orthopnea. Patient states that she was treated with steroids that her primary care doctor with no significant relief of symptoms. Chest x-ray on presentation here showed diffuse increased lung markings slightly greater to the right lower lobe, differential diagnosis should include atelectasis and pneumonia as well as atypical pulmonary edema. EKG on presentation here showed a sinus tachycardia. Blood pressure 160/90 with a heart rate in the 80s, 99% on 2 L of oxygen. White blood cell count 11.0 on admission, 8.0 this morning, hemoglobin 13.0, platelet count 343. On admission the sodium was 138, potassium 5.0, BUN 34, creatinine 1.6, this morning 35 and 1.4 with a potassium of 3.6. AST 85, ALT 37, alk phos 157, BNP level 4370. Troponin 0.031, 0.051, 0.049. Patient was initiated on IV Lasix in the emergency room, she has been diuresing well since then, continues to be on a twice a day IV Lasix. Past Medical History Past Medical History: Asthma, Coronary Artery Disease (CAD), Heart Failure, COPD, GERD/Reflux, GI Bleed, Hypertension, Myocardial Infarction ([place]), Pneumonia, Sleep Apnea/CPAP/BIPAP, Vascular Disorder Additional Past Medical History / Comment(s): Ischemic cardiomyopathy with EF 35-40% August 2019, chronic short segment abdominal aortic dissection, hiatal hernia, esophagitis, diverticulitis, chronic bilateral carpal tunnel syndrome, NARDA without device, lower GI bleed. Last Myocardial Infarction Date:: 08-23-2019 History of Any Multi-Drug Resistant Organisms: None Reported Past Surgical History: Cholecystectomy, Heart Catheterization, Heart Catheterization With Stent, Hysterectomy Additional Past Surgical History / Comment(s): EGD with benign bx, colonoscopy, Past Anesthesia/Blood Transfusion Reactions: No Reported Reaction Additional Past Anesthesia/Blood Transfusion Reaction / Comment(s): CLAUSTERPHOBIA Date of Last Stent Placement:: 2006 Smoking Status: Former smoker - Past Family History Brother(s) Family Medical History: Cancer Additional Family Medical History / Comment(s): tongue cancer Mother Family Medical History: Hypertension, Myocardial Infarction ([place]) Additional Family Medical History / Comment(s): 4 MONTHS AFTER FROM "COMPLICATIONS OF A BROKEN HEART" Father Additional Family Medical History / Comment(s): RHEUMATIC FEVER TWICE CHILD. HAD VALVE REPLACEMENT Medications and Allergies Home Medications Medication Instructions Recorded Confirmed Type Omeprazole 40 mg PO DAILY 08/21/19 11/15/19 History Aspirin 81 mg PO DAILY #30 chew 08/26/19 11/15/19 Rx Atorvastatin [Lipitor] 80 mg PO DAILY #30 tab 08/26/19 11/15/19 Rx Carvedilol [Coreg*] 12.5 mg PO BID-W/MEALS #60 tab 08/26/19 11/15/19 Rx Clopidogrel [Plavix] 75 mg PO DAILY #30 tab 08/26/19 11/15/19 Rx Albuterol Nebulized [Ventolin 2.5 mg INHALATION RT-Q6H PRN 11/15/19 11/15/19 History Nebulized] LORazepam [Ativan] 0.5 mg PO DAILY PRN 11/15/19 11/15/19 History Losartan [Cozaar] 12.5 mg PO DAILY 11/15/19 11/15/19 History Allergies Allergy/AdvReac Type Severity Reaction Status Date / Time levofloxacin [From Levaquin] AdvReac Cough Verified 11/15/19 11:42 lisinopril AdvReac Cough Verified 11/15/19 11:42 Physical Exam Vitals: Vital Signs Temp Pulse Pulse Resp BP BP Pulse Ox 11/16/19 08:33 88 11/16/19 08:22 84 11/16/19 03:41 98 F 84 16 163/91 99 11/15/19 23:15 98.2 F 80 18 155/89 99 11/15/19 19:45 20 11/15/19 19:20 98.7 F 89 20 165/63 98 11/15/19 18:05 98.9 F 65 18 195/93 100 11/15/19 16:59 91 18 168/89 97 11/15/19 14:45 91 20 148/78 98 11/15/19 14:16 151/75 11/15/19 13:15 135/82 11/15/19 12:00 90 19 164/97 99 11/15/19 11:15 83 19 176/92 100 11/15/19 10:00 92 18 199/104 100 11/15/19 09:13 98 28 H 173/123 98 Intake and Output 11/15/19 11/16/19 11/16/19 22:59 06:59 14:59 Intake Total 240 Output Total 1200 Balance 240 -1200 Intake: Oral 240 Output: Urine 1200 Other: # Voids 1 PHYSICAL EXAMINATION: GENERAL: 89-year-old female in no acute distress at the time of my examination HEENT: Head is atraumatic, normocephalic. Pupils equal, round. Sclera anicteric. Conjunctiva are clear. Mucous membranes of the mouth are moist. Neck is supple. There is no elevated jugular venous pressure. No carotid bruit is heard. HEART EXAMINATION: Heart S1, S2 normal. No murmur or gallop heard. CHEST EXAMINATION: Lungs reveal bilateral wheezing with diminished air entry to the bases bilaterally. ABDOMEN: Soft, nontender. Bowel sounds are heard. No organomegaly noted. EXTREMITIES: 2+ peripheral pulses with no evidence of peripheral edema and no calf tenderness noted. NEUROLOGIC patient is awake, alert and oriented 3 . . Results 11/16/19 05:56 11/16/19 05:56 Cardiac Enzymes 11/15/19 11/15/19 11/15/19 Range/Units 08:47 08:47 18:12 AST 85 H (14-36) U/L Troponin I 0.031 0.051 H* (0.000-0.034) ng/mL 11/16/19 Range/Units 00:30 AST (14-36) U/L Troponin I 0.049 H* (0.000-0.034) ng/mL Coagulation 11/15/19 Range/Units 08:47 PT 9.6 (9.0-12.0) sec APTT 24.1 (22.0-30.0) sec CBC 11/15/19 11/16/19 Range/Units 08:47 05:56 WBC 11.0 H 8.0 (3.8-10.6) k/uL RBC 5.24 4.62 (3.80-5.40) m/uL Hgb 14.5 13.0 (11.4-16.0) gm/dL Hct 46.6 H 39.5 (34.0-46.0) % Plt Count 440 343 (150-450) k/uL Comprehensive Metabolic Panel 11/15/19 11/16/19 Range/Units 08:47 05:56 Sodium 138 140 (137-145) mmol/L Potassium 5.0 3.6 (3.5-5.1) mmol/L Chloride 103 101 (98-107) mmol/L Carbon Dioxide 18 L 30 (22-30) mmol/L BUN 34 H 35 H (7-17) mg/dL Creatinine 1.68 H 1.44 H (0.52-1.04) mg/dL Glucose 262 H 116 H (74-99) mg/dL Calcium 9.9 9.6 (8.4-10.2) mg/dL AST 85 H (14-36) U/L ALT 37 H (4-34) U/L Alkaline Phosphatase 157 H (38-126) U/L Total Protein 8.2 (6.3-8.2) g/dL Albumin 4.9 (3.5-5.0) g/dL Current Medications Generic Name Dose Route Start Last Admin Trade Name Freq PRN Reason Stop Dose Admin Albuterol/Ipratropium 3 ml 11/16/19 08:00 11/16/19 08:19 Duoneb 0.5 Mg-3 Mg/3 Ml Soln INHALATION 3 ml RT-TID ANDREY Administration Albuterol/Ipratropium 3 ml 11/15/19 20:05 Duoneb 0.5 Mg-3 Mg/3 Ml Soln INHALATION RT-TID PRN Shortness Of Breath Or Wheezing Aspirin 81 mg 11/17/19 09:00 Aspirin PO DAILY [facility] Atorvastatin Calcium 80 mg 11/16/19 09:00 Lipitor PO DAILY [facility] Carvedilol 12.5 mg 11/16/19 07:30 11/16/19 06:24 Coreg PO 12.5 mg BID-W/MEALS ANDREY Administration Clopidogrel Bisulfate 75 mg 11/16/19 09:00 Plavix PO DAILY [facility] Furosemide 40 mg 11/15/19 21:00 11/15/19 19:59 Lasix IV 40 mg Q12H ANDREY Administration Nitroglycerin/Dextrose 50 mg/ 250 mls @ 3 mls/hr 11/15/19 08:52 11/15/19 12:52 IV Solution IV 11/16/19 08:51 5 mcg/min .Q24H ONE 1.5 mls/hr Titration Protocol 10 MCG/MIN Sodium Chloride 1,000 mls @ 20 mls/hr 11/15/19 11:45 11/15/19 17:11 Saline 0.9% IV Not Given .Q24H ANDREY Lorazepam 0.5 mg 11/15/19 18:53 Ativan PO DAILY PRN Anxiety Losartan Potassium 12.5 mg 11/16/19 09:00 Cozaar PO DAILY [facility] Nitroglycerin 0.4 mg 11/15/19 08:52 11/15/19 09:05 Nitrostat SUBLINGUAL 0.4 mg Q5M PRN Administration Chest Pain Pantoprazole Sodium 40 mg 11/16/19 07:30 11/16/19 06:24 Protonix PO 40 mg AC-BRKFST ANDREY Administration Intake and Output 11/15/19 11/16/19 11/16/19 22:59 06:59 14:59 Intake Total 240 Output Total 1200 Balance 240 -1200 Intake: Oral 240 Output: Urine 1200 Other: # Voids 1 11/16/19 05:56 11/16/19 05:56 EKG Interpretations (text) EKG on presentation here showed sinus tachycardia Assessment and Plan Plan: Assessment and plan #1 systolic congestive heart failure acute on chronic, possible component of bronchitis #2 known history of coronary artery disease with prior PCI of the RCA , most recent cardiac catheterization performed in August did show a total RCA with mild to moderate disease in the left system, medical therapy was advised at that time #3 hypertension #4 hyperlipidemia #5 elevated liver enzymes, likely secondary to congestion #6 mild renal insufficiency, improving #7 troponin abnormality, no significant rise and fall pattern, likely secondary to congestive heart failure Plan We will obtain a repeat echocardiogram with Doppler study. The most recent echo performed in August 2019 revealed an ejection fraction of 35-40%. We'll replace patient's potassium. Continue diuresing with IV Lasix twice a day when necessary continue to monitor the patient's intake and output. Decrease aspirin to 81 mg daily, continue Lipitor, Coreg, Plavix, losartan. If the patient's LV function remains significantly reduce we may consider discontinuing the losartan and initiating Entresto. Further recommendations to follow. DNP note has been reviewed, I agree with a documented findings and plan of care. Patient was seen and examined.
[2019-11-16] MEDS: FUROSEMIDE 10 MG/ML 4 ML VIAL IV SCH ×2 (09:14→23:09)
[2019-11-16] MEDS: CLOPIDOGREL 75 MG TAB PO SCH (09:14)
[2019-11-16] MEDS: LOSARTAN 25 MG TAB PO SCH (09:14)
[2019-11-16] MEDS: ATORVASTATIN 80 MG TAB PO SCH (09:14)
[2019-11-16] MEDS: SODIUM CHLORIDE 0.9% 1,000 ML IV SCH (09:43)
[2019-11-16 10:33] VITALS: BMI 32.3
[2019-11-16] MEDS ORDERED: ASPIRIN 325 MG TAB PO SCH (11:40)
--- NOTE | 2019-11-16 13:40 | ECHOF ---
Referral Reason:chf MEASUREMENTS -------- HEIGHT: 132.1 cm WEIGHT: 72.6 kg BP: IVSd: 1.9 cm (0.6 - 1.1) LVIDd: 4.3 cm (3.9 - 5.3) LVPWd: 1.9 cm (0.6 - 1.1) IVSs: 2.1 cm LVIDs: 3.8 cm LVPWs: 1.6 cm LAESV Index (A-L): 28.64 ml/m Ao Diam: 3.3 cm (2.0 - 3.7) AV Cusp: 1.6 cm (1.5 - 2.6) LA Diam: 3.0 cm (2.7 - 3.8) MV EXCURSION: 15.618 mm (> 18.000) MV EF SLOPE: 79 mm/s (70 - 150) EPSS: 1.1 cm MV E Mo: 0.71 m/s MV DecT: 173 ms MV A Mo: 0.77 m/s MV E/A Ratio: 0.92 RAP: 5.00 mmHg RVSP: 8.79 mmHg FINDINGS -------- Sinus rhythm. This was a technically difficult study with suboptimal views. The left ventricular size is normal. There is severe concentric left ventricular hypertrophy. Ove rall left ventricular systolic function is mild-moderately impaired with, an EF between 40 - 45 %. Douglas Hypokinesis. The right ventricle is normal in size. The left atrial size is normal. Normal LA size by volume 22+/-6 ml/m2. The right atrial size is normal. 5.0mg OF Lumason UTLIZED: 2 OR MORE WALL SEGMENTS NOT VISUALIZED. The aortic valve is trileaflet and appears structurally normal. The mitral valve is normal. The mitral valve leaflets are mildly thickened. Mild mitral regurgita tion is present. The tricuspid valve appears structurally normal. Mild tricuspid regurgitation present. Right vent ricular systolic pressure is normal at < 35 mmHg. There is no pulmonic regurgitation present. Possible Thrombus in LV Douglas The aortic root size is normal. Normal inferior vena cava with normal inspiratory collapse consistent with estimated right atrial pre ssure of 5 mmHg. There is no pericardial effusion. CONCLUSIONS -------- 1. Sinus rhythm. 2. This was a technically difficult study with suboptimal views. 3. The left ventricular size is normal. 4. There is severe concentric left ventricular hypertrophy. 5. Overall left ventricular systolic function is mild-moderately impaired with, an EF between 40 - 45 %. 6. Douglas Hypokinesis. 7. The right ventricle is normal in size. 8. The left atrial size is normal. 9. Normal LA size by volume 22+/-6 ml/m2. 10. The right atrial size is normal. 11. 5.0mg OF Lumason UTLIZED: 2 OR MORE WALL SEGMENTS NOT VISUALIZED. 12. The aortic valve is trileaflet and appears structurally normal. 13. The mitral valve is normal. 14. The mitral valve leaflets are mildly thickened. 15. Mild mitral regurgitation is present. 16. The tricuspid valve appears structurally normal. 17. Mild tricuspid regurgitation present. 18. Right ventricular systolic pressure is normal at < 35 mmHg. 19. There is no pulmonic regurgitation present. 20. Possible Thrombus in LV Douglas 21. The aortic root size is normal. 22. Normal inferior vena cava with normal inspiratory collapse consistent with estimated right atrial pressure of 5 mmHg. 23. There is no pericardial effusion. [employer]: Nitza Ryan RDCS
[2019-11-16] MEDS ORDERED: HEPARIN SODIUM,PORCINE 5,000 UNIT/ML 1 ML VIAL IV ONE (14:29)
[2019-11-16] MEDS ORDERED: HEPARIN SODIUM,PORCINE 5,000 UNIT/ML 1 ML VIAL IV PRN (14:29)
[2019-11-16] MEDS ORDERED: HEPARIN SOD,PORK IN 0.45% NACL 25,000 UNIT in 0.45% NACL 1 250ML.BAG IV SCH ×2 (14:30)
[2019-11-16 15:10] LABS: Basophils % (A) 1 %; Eosinophils # (A) 0.2 k/uL (0-0.7); Eosinophils % (A) 4 %; HGB 13.2 gm/dL (11.4-16.0); Lymphocytes # (A) 1.4 k/uL (1.0-4.8); Lymphocytes % (A) 23 %; MCH 27.6 pg (25.0-35.0); MCHC 32.2 g/dL (31.0-37.0); MCV 85.7 fL (80.0-100.0); Monocytes # (A) 0.4 k/uL (0-1.0); Monocytes % (A) 7 %; Neutrophils % (A) 64 %; Platelet Count 354 k/uL (150-450); RBC 4.79 m/uL (3.80-5.40); RDW 13.9 % (11.5-15.5); WBC 6.2 k/uL (3.8-10.6)
[2019-11-16 15:28] LABS: INR 0.9 (<1.2); Partial Thromboplastin Time 24.1 sec (22.0-30.0); Prothrombin Time 10.1 sec (9.0-12.0)
[2019-11-16] MEDS: ACETAMINOPHEN TAB 325 MG TAB PO PRN (21:03)
--- NOTE | 2019-11-16 21:28 | CT ---
EXAMINATION TYPE: CT abdomen wo con DATE OF EXAM: 11/16/2019 COMPARISON: 11/05/2018 HISTORY: AAA Pain CT DLP: 538.8 mGycm Automated exposure control for dose reduction was used. Multiple axial sections were obtained from the diaphragm to the iliac crests with no contrast. Lung bases are clear of infiltrate. There is no pleural effusion. There is coronary artery calcificat ion. Liver shows no focal defect. There are clips from cholecystectomy. There is no pancreatic mass. Bile ducts are not dilated. Stomach is intact. Spleen is intact. There is no adrenal mass. Kidneys have normal size. There is no hydronephrosis. Ureters are not dilat ed. There is 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 at the diaphragm. There is lower abdominal aorta that measures 2.8 cm. There is no evidence of leaking aneurysm. Lumbar vertebra have normal alignment. Disc spaces are fairly normal. There is no compression fractur e. IMPRESSION: 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 measures larger than the CT scan of 11/05/2018. 2.8 cm l ower abdominal aortic aneurysm unchanged.
--- NOTE | 2019-11-16 21:58 | PN ---
PROGRESS NOTE DATE OF SERVICE: 11/16/2019 This 59-year-old woman who was admitted with CHF acute exacerbation, acute on chronic systolic dysfunction, also had possible ischemic cardiomyopathy. The patient is being closely monitored at this time. Repeat 2D echocardiogram done today showed ejection fraction about 40-50 percent with apical hypokinesia. Minimal valvular abnormalities also noted. Possible thrombus in the LV apex also suspected. The patient being closely monitored at this time. Troponin found to be 0.049. The patient is started on IV heparin at this time. PAST MEDICAL HISTORY: Reviewed. REVIEW OF SYSTEMS: Cardiovascular system: As mentioned earlier. Respirations: As mentioned earlier. GI no nausea or vomiting. : As mentioned earlier. Central nervous system: No numbness or weakness. CURRENT MEDICATIONS: Reviewed and include: 1. DuoNeb q.i.d. and p.r.n. 2. Aspirin 81 mg. 3. Lipitor 80 mg. 4. Coreg 12.5 mg b.i.d. 5. Plavix 75 mg. 6. Lasix 40 mg IV daily. 7. Heparin IV. 8. Ativan. 9. Cozaar. 10.Nitrostat. 11.Protonix. PHYSICAL EXAM: Patient is alert, oriented x3. Pulse is 88. Blood pressure 117/63, respiration 20, temperature 97.2, pulse ox 98% on room air. HEENT: Conjunctivae normal. NECK: No jugular venous distention. CARDIOVASCULAR: S1, S2 muffled. RESPIRATORY: Breath sounds diminished at the bases. A few scattered rhonchi. No crackles. ABDOMEN: Soft, nontender. No mass palpable. LEGS: No edema. No swelling. NERVOUS SYSTEM: No focal deficits. LABORATORY DATA: CBC within normal limits. Creatinine is 1.44. Troponin 0.049. Influenza is negative. ASSESSMENT: 1. Congestive heart failure acute exacerbation with acute on chronic systolic dysfunction, ejection fraction 40-45 percent with apical hypokinesia. 2. Possible LV apical thrombosis. 3. Possible ischemic cardiomyopathy. 4. Increased creatinine with acute renal failure possible acute tubular necrosis. 5. Increased AST/ALT possibly hepatitis, mild secondary to congestive heart failure. 6. Congestive hepatopathy. 7. Increased WBC. 8. History of asthma/chronic obstructive pulmonary disease. 9. History of gastroesophageal reflux disease. 10.History of gastrointestinal bleed. 11.Hypertension. 12.History of pneumonia. 13.History of sleep apnea. 14.History of chronic short-segment abdominal aortic dissection. 15.History of hiatal hernia. 16.History of esophagitis. 17.History of chronic bilateral carpal tunnel syndrome. 18.History of coronary artery disease/ stent. 19.History of cholecystectomy. 20.Obesity with body mass of 32.3. RECOMMENDATIONS AND DISCUSSION: Recommend to continue current medications, continue with monitoring, symptomatic treatment. Otherwise at this time I would also recommend a CT scan of the abdomen to follow up of the aortic aneurysm. Otherwise, I would recommend continue with Cardiology recommendations. The prognosis extremely guarded because of multiple complex medical issues. Further recommendations to follow. Last abdominal aortic CT scan was on 11/05/2018. Prognosis guarded. MMODL / IJN: [id number] /
[2019-11-17 03:16] LABS: Basophils # (A) 0.1 k/uL (0-0.2); Basophils % (A) 1 %; Eosinophils # (A) 0.5 k/uL (0-0.7); Eosinophils % (A) 6 %; HCT 40.6 % (34.0-46.0); HGB 13.5 gm/dL (11.4-16.0); Lymphocytes # (A) 3.2 k/uL (1.0-4.8); Lymphocytes % (A) 35 %; MCH 28.5 pg (25.0-35.0); MCHC 33.3 g/dL (31.0-37.0); MCV 85.5 fL (80.0-100.0); Mean Platelet Volume 7.1; Monocytes # (A) 0.7 k/uL (0-1.0); Monocytes % (A) 8 %; Neutrophils # (A) 4.4 k/uL (1.3-7.7); Neutrophils % (A) 47 %; Platelet Count 373 k/uL (150-450); RBC 4.75 m/uL (3.80-5.40); RDW 13.8 % (11.5-15.5); WBC 9.2 k/uL (3.8-10.6)
[2019-11-17 03:50] LABS: Potassium 3.5 mmol/L (3.5-5.1)
[2019-11-17] MEDS: ACETAMINOPHEN TAB 325 MG TAB PO PRN ×2 (04:38→14:54)
[2019-11-17] MEDS: CARVEDILOL 12.5 MG TAB PO SCH ×2 (06:43→16:30)
[2019-11-17] MEDS: PANTOPRAZOLE 40 MG TABLET PO SCH (06:43)
[2019-11-17] MEDS: IPRATROPIUM-ALBUTEROL 3 ML NEB INHALATION SCH ×3 (07:21→19:00)
[2019-11-17] MEDS: LOSARTAN 25 MG TAB PO SCH (08:56)
[2019-11-17] MEDS: CLOPIDOGREL 75 MG TAB PO SCH (08:56)
[2019-11-17] MEDS: ASPIRIN 81 MG PO SCH (08:56)
[2019-11-17] MEDS: FUROSEMIDE 10 MG/ML 4 ML VIAL IV SCH (08:56)
[2019-11-17] MEDS: ATORVASTATIN 80 MG TAB PO SCH (08:56)
[2019-11-17] MEDS: SODIUM CHLORIDE 0.9% 1,000 ML IV SCH (08:56)
[2019-11-17] MEDS: APIXABAN 5 MG TAB PO SCH ×2 (11:25→20:46)
--- NOTE | 2019-11-17 12:23 | P.PN ---
Subjective Progress Note Date: 11/17/19 This is a pleasant 59-year-old female who follows regularly with Dr. Pugh in the office. She has a known history of coronary artery disease he is with prior stenting of the totally occluded RCA in 2006, in August of this past year patient underwent a cardiac catheterization by Dr. Catherine Warner, patient was found to have a total occlusion of the RCA and mild to moderate disease in the left system with collaterals to the distal branches of the RCA. The distal LAD had some competitive flow and was quite small, possibility of some occlusion in the distal apical portion could not be excluded. Circumflex did not have disease, medical therapy was advised at that time. Patient also underwent an echocardiogram with Doppler study on that visit which revealed an ejection fraction of 35-40%. Patient also has history of hypertension, hyperlipidemia. Patient presents to the hospital with symptoms of progressively worsening shortness of breath which she states has been going on for the past few months, progressively worsening. She does have some PND and orthopnea. Patient states that she was treated with steroids that her primary care doctor with no significant relief of symptoms. Chest x-ray on presentation here showed diffuse increased lung markings slightly greater to the right lower lobe, differential diagnosis should include atelectasis and pneumonia as well as atypical pulmonary edema. EKG on presentation here showed a sinus tachycardia. Blood pressure 160/90 with a heart rate in the 80s, 99% on 2 L of oxygen. White blood cell count 11.0 on admission, 8.0 this morning, hemoglobin 13.0, platelet count 343. On admission the sodium was 138, potassium 5.0, BUN 34, creatinine 1.6, this morning 35 and 1.4 with a potassium of 3.6. AST 85, ALT 37, alk phos 157, BNP level 4370. Troponin 0.031, 0.051, 0.049. Patient was initiated on IV Lasix in the emergency room, she has been diuresing well since then, continues to be on a twice a day IV Lasix. 11/17/2019 Patient was seen and examined this morning, overall she's feeling well. She does feel like her breathing is improved. She had an echocardiogram with Doppler study performed which revealed an ejection fraction of 40-45%, hypokinesia at the apex. Her echo was reviewed yesterday by Dr. Sanchez, there is evidence of a thrombus in the LV apex and for this reason the patient had been initiated yesterday on IV heparin. Her weight is down 1 kg today. White blood cell count 9.2, hemoglobin 13.5, platelet count 373. Sodium 138, potassium 3.5, BUN 39, creatinine 1.7. We will discontinue the IV Lasix today and start the patient on oral diuretics. We will also discontinue the heparin and start the patient on oral anticoagulation. Discontinue the losartan, and initiate Entresto from Monday. Objective - Vital Signs Vital signs: Vital Signs Temp 97.9 F 11/17/19 08:00 Pulse 88 11/17/19 08:00 Resp 20 11/17/19 08:00 BP 133/75 11/17/19 08:00 Pulse Ox 94 L 11/17/19 08:00 Intake & Output 11/16/19 11/17/19 11/17/19 18:59 06:59 18:59 Intake Total 1200 240 Output Total 1350 480 700 Balance -150 -480 -460 Weight 72.575 kg 71.9 kg Intake: Oral 1200 240 Output: Urine 1350 480 700 Other: # Voids 4 2 - Exam PHYSICAL EXAMINATION: GENERAL: 89-year-old female in no acute distress at the time of my examination HEENT: Head is atraumatic, normocephalic. Pupils equal, round. Sclera anicteric. Conjunctiva are clear. Mucous membranes of the mouth are moist. Neck is supple. There is no elevated jugular venous pressure. No carotid bruit is heard. HEART EXAMINATION: Heart S1, S2 normal. No murmur or gallop heard. CHEST EXAMINATION: Lungs reveal improvement in air entry bilaterally. ABDOMEN: Soft, nontender. Bowel sounds are heard. No organomegaly noted. EXTREMITIES: 2+ peripheral pulses with no evidence of peripheral edema and no calf tenderness noted. NEUROLOGIC patient is awake, alert and oriented 3 . - Labs CBC & Chem 7: 11/17/19 02:44 11/17/19 02:44 Labs: Abnormal Lab Results - Last 24 Hours (Table) 11/16/19 11/17/19 11/17/19 Range/Units 20:28 02:44 02:44 APTT 68.4 H 54.1 H (22.0-30.0) sec BUN 39 H (7-17) mg/dL Creatinine 1.73 H (0.52-1.04) mg/dL Glucose 131 H (74-99) mg/dL Assessment and Plan Plan: Assessment and plan #1 systolic congestive heart failure acute on chronic, possible component of bronchitis #2 known history of coronary artery disease with prior PCI of the RCA , most recent cardiac catheterization performed in August did show a total RCA with mild to moderate disease in the left system, medical therapy was advised at that time #3 hypertension #4 hyperlipidemia #5 elevated liver enzymes, likely secondary to congestion #6 mild renal insufficiency, improving #7 troponin abnormality, no significant rise and fall pattern, likely secondary to congestive heart failure #8 evidence of thrombus in the LV apex #9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 Plan Repeat echocardiogram with Doppler study showed an ejection fraction of 40-45%, there was also evidence of thrombus of LV apex. We will discontinue the IV heparin today and start the patient on oral anticoagulation. Discontinue IV Lasix and change release manager to oral diuretics today. We will has been discontinued and we will initiate Entresto. Check lytes BUN and creatinine in the morning. DNP note has been reviewed, I agree with a documented findings and plan of care. Patient was seen and examined.
[2019-11-17] MEDS: FUROSEMIDE 40 MG TAB PO SCH (14:54)
--- NOTE | 2019-11-17 22:40 | PN ---
PROGRESS NOTE DATE OF SERVICE: 11/17/2019 This 59-year-old woman was admitted with CHF acute exacerbation also had left apical thrombus. The patient is started on anticoagulation. Abdominal and pelvis CAT scan was also done because of the aortic aneurysm which showed 3.2 cm aneurysm in the upper abdomen aorta which was larger than the CT scan of 11/05/2018. PAST MEDICAL HISTORY: Past medical history reviewed. PHYSICAL EXAMINATION: Patient is alert, oriented x3. Pulse is 82. Blood pressure 105/59, respirations 20. Temp 97.4, pulse ox 98% on room air. HEENT: Conjunctivae normal. NECK: No JVD. CARDIOVASCULAR SYSTEM: S1, S2 muffled. RESPIRATORY SYSTEM: Breath sounds diminished at the bases. No rhonchi. No crackles. ABDOMEN is soft, nontender. LEGS are no edema. No swelling. CENTRAL NERVOUS SYSTEM: No focal deficits. LABS: WBC normal. Otherwise sodium 138, potassium 3.5, creatinine is 1.73. ASSESSMENT: 1. Congestive heart failure acute exacerbation with acute on chronic systolic dysfunction ejection fraction 40-45 percent with apical hypokinesis. 2. LV apical thrombosis. 3. Possible ischemic cardiomyopathy. 4. Increased creatinine with acute renal failure possibly acute tubular necrosis. 5. Increased AST and ALT, possibly hepatitis, mild secondary to congestive heart failure. 6. Congestive hepatopathy. 7. Increased WBC. 8. 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 9. Increased WBC. 10.History of asthma, chronic obstructive pulmonary disease. 11.History of gastroesophageal reflux disease. 12.History of gastrointestinal bleed. 13.Hypertension. 14.History of pneumonia. 15.History of sleep apnea. 16.History of apparent chronic short-segment abdominal aortic dissection per chart. 17.History of hiatal hernia. 18.History of esophagitis. 19.History of chronic bilateral carpal tunnel syndrome. 20.History of coronary artery disease/stent. 21.History of cholecystectomy. 22.Obesity with body mass index of 32.3. RECOMMENDATIONS AND DISCUSSION: Recommend to continue current medications, monitoring, management and symptomatic treatment. Otherwise, at this time, I recommend to continue with current medications. I would also recommend continue with p.o. diuretics. I would also recommend vascular surgery for continued monitoring and evaluation of the aortic aneurysm also. Otherwise, monitor closely. Further recommendations to follow. MMODL / IJN: [id number] /
[2019-11-18 06:20] LABS: Basophils # (A) 0.1 k/uL (0-0.2); Basophils % (A) 1 %; Eosinophils # (A) 0.4 k/uL (0-0.7); Eosinophils % (A) 6 %; HCT 39.3 % (34.0-46.0); HGB 12.7 gm/dL (11.4-16.0); Lymphocytes # (A) 1.9 k/uL (1.0-4.8); Lymphocytes % (A) 29 %; MCH 27.6 pg (25.0-35.0); MCHC 32.3 g/dL (31.0-37.0); MCV 85.2 fL (80.0-100.0); Monocytes # (A) 0.6 k/uL (0-1.0); Monocytes % (A) 8 %; Neutrophils # (A) 3.5 k/uL (1.3-7.7); Neutrophils % (A) 52 %; Platelet Count 329 k/uL (150-450); RBC 4.61 m/uL (3.80-5.40); RDW 13.8 % (11.5-15.5); WBC 6.7 k/uL (3.8-10.6)
[2019-11-18 06:31] LABS: Calcium 9.9 mg/dL (8.4-10.2)
[2019-11-18] MEDS: CARVEDILOL 12.5 MG TAB PO SCH ×2 (06:32→17:18)
[2019-11-18] MEDS: PANTOPRAZOLE 40 MG TABLET PO SCH (06:32)
[2019-11-18] MEDS: IPRATROPIUM-ALBUTEROL 3 ML NEB INHALATION SCH ×3 (08:46→20:01)
[2019-11-18] MEDS: ATORVASTATIN 80 MG TAB PO SCH (08:51)
[2019-11-18] MEDS: ASPIRIN 81 MG PO SCH (08:51)
[2019-11-18] MEDS: APIXABAN 5 MG TAB PO SCH ×2 (08:51→20:32)
[2019-11-18] MEDS: FUROSEMIDE 40 MG TAB PO SCH (08:51)
[2019-11-18] MEDS: CLOPIDOGREL 75 MG TAB PO SCH (08:51)
[2019-11-18] MEDS: SACUBITRIL/VALSARTAN 24 MG-26 MG TABLET PO SCH ×2 (08:52→20:33)
--- NOTE | 2019-11-18 11:26 | P.PN ---
Subjective Progress Note Date: 11/18/19 This is a pleasant 59-year-old female who follows regularly with Dr. Pugh in the office. She has a known history of coronary artery disease he is with prior stenting of the totally occluded RCA in 2006, in August of this past year patient underwent a cardiac catheterization by Dr. Catherine Warner, patient was found to have a total occlusion of the RCA and mild to moderate disease in the left system with collaterals to the distal branches of the RCA. The distal LAD had some competitive flow and was quite small, possibility of some occlusion in the distal apical portion could not be excluded. Circumflex did not have disease, medical therapy was advised at that time. Patient also underwent an echocardiogram with Doppler study on that visit which revealed an ejection fraction of 35-40%. Patient also has history of hypertension, hyperlipidemia. Patient presents to the hospital with symptoms of progressively worsening shortness of breath which she states has been going on for the past few months, progressively worsening. She does have some PND and orthopnea. Patient states that she was treated with steroids that her primary care doctor with no significant relief of symptoms. Chest x-ray on presentation here showed diffuse increased lung markings slightly greater to the right lower lobe, differential diagnosis should include atelectasis and pneumonia as well as atypical pulmonary edema. EKG on presentation here showed a sinus tachycardia. Blood pressure 160/90 with a heart rate in the 80s, 99% on 2 L of oxygen. White blood cell count 11.0 on admission, 8.0 this morning, hemoglobin 13.0, platelet count 343. On admission the sodium was 138, potassium 5.0, BUN 34, creatinine 1.6, this morning 35 and 1.4 with a potassium of 3.6. AST 85, ALT 37, alk phos 157, BNP level 4370. Troponin 0.031, 0.051, 0.049. Patient was initiated on IV Lasix in the emergency room, she has been diuresing well since then, continues to be on a twice a day IV Lasix. 11/17/2019 Patient was seen and examined this morning, overall she's feeling well. She does feel like her breathing is improved. She had an echocardiogram with Doppler study performed which revealed an ejection fraction of 40-45%, hypokinesia at the apex. Her echo was reviewed yesterday by Dr. Sanchez, there is evidence of a thrombus in the LV apex and for this reason the patient had been initiated yesterday on IV heparin. Her weight is down 1 kg today. White blood cell count 9.2, hemoglobin 13.5, platelet count 373. Sodium 138, potassium 3.5, BUN 39, creatinine 1.7. We will discontinue the IV Lasix today and start the patient on oral diuretics. We will also discontinue the heparin and start the patient on oral anticoagulation. Discontinue the losartan, and initiate Entresto from Monday. 11/18/2019 Patient seen and examined this morning, doing well overall.blood pressure 138/70 with a heart rate of 80, 98% on room air.White blood cell count 6.7, hemoglobin 12.7, platelet count 329. Sodium 139, potassium 4.0, BUN 42, creatinine 1.8. Objective - Vital Signs Vital signs: Vital Signs Temp 97.7 F 11/18/19 08:00 Pulse 80 11/18/19 09:02 Resp 20 11/18/19 08:00 BP 138/75 11/18/19 08:00 Pulse Ox 98 11/18/19 08:49 Intake & Output 11/17/19 11/18/19 11/18/19 18:59 06:59 18:59 Intake Total 240 120 Output Total 1300 400 Balance -1060 -280 Weight 72.8 kg Intake: Oral 240 120 Output: Urine 1300 400 Other: # Voids 2 - Exam PHYSICAL EXAMINATION: GENERAL: 89-year-old female in no acute distress at the time of my examination HEENT: Head is atraumatic, normocephalic. Pupils equal, round. Sclera anicteric. Conjunctiva are clear. Mucous membranes of the mouth are moist. Neck is supple. There is no elevated jugular venous pressure. No carotid bruit is heard. HEART EXAMINATION: Heart S1, S2 normal. No murmur or gallop heard. CHEST EXAMINATION: Lungs reveal improvement in air entry bilaterally.fine rales heard at the right posterior bases ABDOMEN: Soft, nontender. Bowel sounds are heard. No organomegaly noted. EXTREMITIES: 2+ peripheral pulses with no evidence of peripheral edema and no calf tenderness noted. NEUROLOGIC patient is awake, alert and oriented 3 . - Labs CBC & Chem 7: 11/18/19 05:39 11/18/19 05:39 Labs: Abnormal Lab Results - Last 24 Hours (Table) 11/18/19 Range/Units 05:39 Carbon Dioxide 33 H (22-30) mmol/L BUN 42 H (7-17) mg/dL Creatinine 1.80 H (0.52-1.04) mg/dL Glucose 119 H (74-99) mg/dL Assessment and Plan Plan: Assessment and plan #1 systolic congestive heart failure acute on chronic, possible component of bronchitis #2 known history of coronary artery disease with prior PCI of the RCA , most recent cardiac catheterization performed in August did show a total RCA with mild to moderate disease in the left system, medical therapy was advised at that time #3 hypertension #4 hyperlipidemia #5 elevated liver enzymes, likely secondary to congestion #6 mild renal insufficiency, improving #7 troponin abnormality, no significant rise and fall pattern, likely secondary to congestive heart failure #8 evidence of thrombus in the LV apex #9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 Plan From cardiology's perspective we'll discontinue the aspirin, decrease Lasix to once a day. Repeat BMP in the morning. DNP note has been reviewed, I agree with a documented findings and plan of care. Patient was seen and examined.
[2019-11-18] MEDS: ACETAMINOPHEN TAB 325 MG TAB PO PRN (11:37)
--- NOTE | 2019-11-18 11:58 | CDI ---
Documentation Clarification Form Date: 11/18/2019 11:44:49 AM From: Tiana ChongFrancisPAT jackson, CCDS Admit Date: 11/15/2019 11:38:00 AM Patient Name: Altagracia Saavedra Visit Number: [id number] Discharge Date: ATTENTION: The Clinical Documentation Specialists (CDI) and [facility] Coding Staff appreciate your assistance in clarifying documentation. Please respond to the clarification below the line at the bottom and electronically sign. The CDI & [facility] Coding staff will review the response and follow-up if needed. Please note: Queries are made part of the Legal Health Record. If you have any questions, please contact the author of this message via ITS. Dr. Patel Rodriguez: Patient presented with SOB & in respiratory distress per the ED note. History/Risk Factors: Asthma, COPD, systolic CHF, Hypertension, [place] & previous pneumonia. Tobacco use: Former smoker. Clinical Indicators: Per the ED note: "...59-year-old female presents with chief complaint of dyspnea. Patient evaluated in our resuscitation bay. Vital signs upon arrival shows blood pressure of 221/150, heart rate of 118, respiratory rate 32.Patient was transitioned to our BiPAP machine. [id number] bedside ultrasounds performed showing signs of heart failure and pulmonary edema. Clinical presentation consistent with flash pulmonary edema secondary to hypertensive emergency." Vital signs: P 118^, R 32^ (sob, labored, accessory use), BP 221/158^, PO 100 BiPAP 60% LAB: CO2 18*, Troponin (0.031), 0.051^^, 0.049^^ Treatment: IV Nitro, Nitro sl, IV Lasix, INH Albuterol In your professional opinion, can you please clarify if these findings signify one of the following conditions? Respiratory Failure ruled out Respiratory Failure ruled in Acute on Chronic Respiratory Failure Chronic Respiratory Failure Other Diagnosis, please specify Unable to determine Specificity, If known: With hypercapnia? (pCO2 >50 and pH <7.35) With hypoxia? (pO2 <60 mm Hg or SpO2 <91% on room air) (Last Query Form Revision: July 2019) acute hypoxic resp failure MTDD
[2019-11-18 12:15] LABS: Calcium 9.9 mg/dL (8.4-10.2); Potassium 3.5 mmol/L (3.5-5.1)
--- NOTE | 2019-11-18 15:37 | P.PN ---
Subjective Progress Note Date: 11/18/19 Principal diagnosis: This is a 59-year-old female who was recently admitted for congestive heart failure acute exacerbation was also found to have a left apical thrombus and is being closely monitored. Patient was on IV heparin drip and has been discontinued and patient is currently on Eliquis 5mg twice daily and will continue this at this time. Aspirin was discontinued. Patient is also currently maintained on Plavix and will continue. Currently patient denies any chest pain, shortness of breath, or palpitations. Patient is afebrile. Patient denies any nausea or vomiting and has been tolerating diet. Objective - Vital Signs Vital signs: Vital Signs Temp 98.2 F 11/18/19 11:31 Pulse 76 11/18/19 13:00 Resp 20 11/18/19 11:31 BP 93/52 11/18/19 11:31 Pulse Ox 96 11/18/19 11:31 Intake & Output 11/17/19 11/18/19 11/18/19 18:59 06:59 18:59 Intake Total 240 238 Output Total 1300 800 Balance -1060 -562 Weight 72.8 kg Intake: Oral 240 238 Output: Urine 1300 800 Other: # Voids 2 - Exam Gen: This is a 59-year-old female sitting up in the bed and appears to be in no acute distress. Temp is 98.2F, pulse is 84, respirations are 20, blood pressure is 133/59, oxygen saturation is 96% on room air. HEENT: Head is atraumatic, normocephalic. Pupils equal, round. Sclerae is anicteric. NECK: Supple. No JVD. No lymphadenopathy. No thyromegaly. LUNGS: Diminished breath sounds at the bases with a few scattered rhonchi noted. No intercostal retractions. HEART: S1, S2 are muffled ABDOMEN: Soft. Obese. Bowel sounds are present. No masses. No tenderness. EXTREMITIES: No pedal edema. No calf tenderness. NEUROLOGICAL: Patient is awake, alert and oriented x3. Cranial nerves 2 through 12 are grossly intact. - Labs CBC & Chem 7: 11/18/19 05:39 11/18/19 11:45 Labs: Abnormal Lab Results - Last 24 Hours (Table) 11/18/19 11/18/19 Range/Units 05:39 11:45 Carbon Dioxide 33 H 31 H (22-30) mmol/L BUN 42 H 39 H (7-17) mg/dL Creatinine 1.80 H 1.62 H (0.52-1.04) mg/dL Glucose 119 H 169 H (74-99) mg/dL Assessment and Plan Assessment: Congestive heart failure acute exacerbation with acute on chronic systolic dysfunction, ejection fraction 40-45% with apical hypokinesis LV apical thrombosis Acute hypoxic respiratory failure Possible ischemic cardiomyopathy Increased creatinine with acute renal failure possibly acute tubular necrosis Increased AST and ALT, possibly hepatitis, mild secondary to congestive heart failure Congestive hepatopathy Increased WBC 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 slightly larger than the computed tomography scan of 2018, a 2.8 cm lower abdominal aorta unchanged Increased WBC History of asthma, chronic obstructive pulmonary disease History of gastroesophageal reflux disease History of gastrointestinal bleed Hypertension History of pneumonia History of sleep apnea History of apparent chronic short segment abdominal aortic dissection per chart History of hiatal hernia History of esophagitis History of chronic bilateral carpal tunnel syndrome History of coronary artery disease/stent History of cholecystectomy Obesity with body mass index of 32.3 Recommendations and discussion: Recommend to continue current medications, management, and symptomatic treatment. Will continue to monitor vital signs and labs closely. Cardiology is following closely. Patient was transitioned to oral Lasix and will continue at this time. Will repeat a.m. labs. Creatinine today is 1.62 and trending down with a potassium of 3.5. Discussed with the patient at length about outpatient follow-up with vascular surgery and appointment was made with Dr. No as she has seen him in the past for this. Patient will also need to follow-up with nephrology in the outpatient setting to monitor creatinine closely. Further recommendations to follow. Guarded prognosis. Possible discharge in 24-48 hours.
[2019-11-18] MEDS: SODIUM CHLORIDE 0.9% 1,000 ML IV SCH (17:13)
[2019-11-19 06:36] LABS: Basophils # (A) 0.1 k/uL (0-0.2); Basophils % (A) 1 %; Eosinophils # (A) 0.4 k/uL (0-0.7); Eosinophils % (A) 7 %; HGB 12.3 gm/dL (11.4-16.0); Lymphocytes # (A) 1.9 k/uL (1.0-4.8); Lymphocytes % (A) 31 %; MCH 28.1 pg (25.0-35.0); MCHC 32.4 g/dL (31.0-37.0); MCV 86.5 fL (80.0-100.0); Monocytes # (A) 0.5 k/uL (0-1.0); Monocytes % (A) 8 %; Neutrophils % (A) 50 %; Platelet Count 329 k/uL (150-450); RBC 4.39 m/uL (3.80-5.40); RDW 13.7 % (11.5-15.5); WBC 6.1 k/uL (3.8-10.6)
[2019-11-19] MEDS: PANTOPRAZOLE 40 MG TABLET PO SCH (06:42)
[2019-11-19] MEDS: CARVEDILOL 12.5 MG TAB PO SCH (06:43)
[2019-11-19] MEDS: IPRATROPIUM-ALBUTEROL 3 ML NEB INHALATION SCH ×2 (07:11→12:47)
[2019-11-19] MEDS ORDERED: FUROSEMIDE 40 MG TAB PO SCH (09:00)
[2019-11-19] MEDS: ATORVASTATIN 80 MG TAB PO SCH (09:13)
[2019-11-19] MEDS: SACUBITRIL/VALSARTAN 24 MG-26 MG TABLET PO SCH (09:13)
[2019-11-19] MEDS: APIXABAN 5 MG TAB PO SCH (09:13)
[2019-11-19] MEDS: CLOPIDOGREL 75 MG TAB PO SCH (09:13)
[2019-11-19 10:09] LABS: Calcium 9.7 mg/dL (8.4-10.2); Magnesium 2.1 mg/dL (1.6-2.3); Potassium 4.1 mmol/L (3.5-5.1)
[2019-11-19] MEDS ORDERED: SPIRONOLACTONE 25 MG TAB PO SCH (11:15)
--- NOTE | 2019-11-19 12:11 | P.PN ---
Subjective Progress Note Date: 11/19/19 This is a pleasant 59-year-old female who follows regularly with Dr. Pugh in the office. She has a known history of coronary artery disease he is with prior stenting of the totally occluded RCA in 2006, in August of this past year patient underwent a cardiac catheterization by Dr. Catherine Warner, patient was found to have a total occlusion of the RCA and mild to moderate disease in the left system with collaterals to the distal branches of the RCA. The distal LAD had some competitive flow and was quite small, possibility of some occlusion in the distal apical portion could not be excluded. Circumflex did not have disease, medical therapy was advised at that time. Patient also underwent an echocardiogram with Doppler study on that visit which revealed an ejection fraction of 35-40%. Patient also has history of hypertension, hyperlipidemia. Patient presents to the hospital with symptoms of progressively worsening shortness of breath which she states has been going on for the past few months, progressively worsening. She does have some PND and orthopnea. Patient states that she was treated with steroids that her primary care doctor with no significant relief of symptoms. Chest x-ray on presentation here showed diffuse increased lung markings slightly greater to the right lower lobe, differential diagnosis should include atelectasis and pneumonia as well as atypical pulmonary edema. EKG on presentation here showed a sinus tachycardia. Blood pressure 160/90 with a heart rate in the 80s, 99% on 2 L of oxygen. White blood cell count 11.0 on admission, 8.0 this morning, hemoglobin 13.0, platelet count 343. On admission the sodium was 138, potassium 5.0, BUN 34, creatinine 1.6, this morning 35 and 1.4 with a potassium of 3.6. AST 85, ALT 37, alk phos 157, BNP level 4370. Troponin 0.031, 0.051, 0.049. Patient was initiated on IV Lasix in the emergency room, she has been diuresing well since then, continues to be on a twice a day IV Lasix. 11/17/2019 Patient was seen and examined this morning, overall she's feeling well. She does feel like her breathing is improved. She had an echocardiogram with Doppler study performed which revealed an ejection fraction of 40-45%, hypokinesia at the apex. Her echo was reviewed yesterday by Dr. Sanchez, there is evidence of a thrombus in the LV apex and for this reason the patient had been initiated yesterday on IV heparin. Her weight is down 1 kg today. White blood cell count 9.2, hemoglobin 13.5, platelet count 373. Sodium 138, potassium 3.5, BUN 39, creatinine 1.7. We will discontinue the IV Lasix today and start the patient on oral diuretics. We will also discontinue the heparin and start the patient on oral anticoagulation. Discontinue the losartan, and initiate Entresto from Monday. 11/18/2019 Patient seen and examined this morning, doing well overall.blood pressure 138/70 with a heart rate of 80, 98% on room air.White blood cell count 6.7, hemoglobin 12.7, platelet count 329. Sodium 139, potassium 4.0, BUN 42, creatinine 1.8. Objective - Vital Signs Vital signs: Vital Signs Temp 98 F 11/19/19 08:00 Pulse 63 11/19/19 08:00 Resp 18 11/19/19 08:00 BP 135/84 11/19/19 08:00 Pulse Ox 93 L 11/19/19 08:00 Intake & Output 11/18/19 11/19/19 11/19/19 18:59 06:59 18:59 Intake Total 478 Output Total 1200 600 Balance -722 -600 Weight 73.2 kg Intake: Oral 478 Output: Urine 1200 600 Other: Voiding Method Toilet Toilet Toilet - Labs CBC & Chem 7: 11/19/19 06:17 11/19/19 06:17 Labs: Abnormal Lab Results - Last 24 Hours (Table) 11/18/19 11/19/19 Range/Units 11:45 06:17 Carbon Dioxide 31 H 34 H (22-30) mmol/L BUN 39 H 38 H (7-17) mg/dL Creatinine 1.62 H 1.41 H (0.52-1.04) mg/dL Glucose 169 H 120 H (74-99) mg/dL Assessment and Plan Plan: Assessment and plan #1 systolic congestive heart failure acute on chronic, possible component of bronchitis #2 known history of coronary artery disease with prior PCI of the RCA , most recent cardiac catheterization performed in August did show a total RCA with mild to moderate disease in the left system, medical therapy was advised at that time #3 hypertension #4 hyperlipidemia #5 elevated liver enzymes, likely secondary to congestion #6 mild renal insufficiency, improving #7 troponin abnormality, no significant rise and fall pattern, likely secondary to congestive heart failure #8 evidence of thrombus in the LV apex #9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 Plan From cardiology's perspective we will add Aldactone 12-1/2 mg daily to the martha valencia's medication regime. Patient has been instructed not to return to work until she is seen by Dr. Pugh in the office in one week. DNP note has been reviewed, I agree with a documented findings and plan of care. Patient was seen and examined.
[2019-11-19] MEDS: SODIUM CHLORIDE 0.9% 1,000 ML IV SCH (12:17)
[2019-11-19 12:28] VITALS: BP 118/85; TEMP 97.9
[2019-11-19 12:48] VITALS: RESP 16
[2019-11-19 12:54] VITALS: PULSE 99
--- NOTE | 2019-11-19 13:58 | P.DS ---
Providers Date of admission: 11/15/19 11:38 Expected date of discharge: 11/19/19 Attending physician: Patel Rodriguez Consults: 11/15/19 11:38 Consult Physician Routine Consulting Provider: Renzo White Consult Reason/Comments: heart failure Do you want consulting provider notified?: Yes Primary care physician: Jessica Alexander [facility] Course: Final diagnosis Congestive heart failure acute exacerbation with acute on chronic systolic dysfunction, ejection fraction 40-45% with apical hypokinesis LV apical thrombosis Acute hypoxic respiratory failure Possible ischemic cardiomyopathy Increased creatinine with acute renal failure possibly acute tubular necrosis Increased AST and ALT, possibly hepatitis, mild secondary to congestive heart failure Congestive hepatopathy Increased WBC 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 slightly larger than the computed tomography scan of 2018, a 2.8 cm lower abdominal aorta unchanged Increased WBC History of asthma, chronic obstructive pulmonary disease History of gastroesophageal reflux disease History of gastrointestinal bleed Hypertension History of pneumonia History of sleep apnea History of apparent chronic short segment abdominal aortic dissection per chart History of hiatal hernia History of esophagitis History of chronic bilateral carpal tunnel syndrome History of coronary artery disease/stent History of cholecystectomy Obesity with body mass index of 32.3 Discharge disposition Patient is being discharged in a stable condition with guarded prognosis to home and will follow-up with cardiology Dr. Thornton in the outpatient setting in one week. Patient will also follow-up with her primary care provider Dr. Lopez this week as scheduled. Patient will follow-up with Dr. No on December 02 as scheduled. Total time taken is 35 minutes. History of present illness This is a 59-year-old female was recently admitted for congestive heart failure acute exacerbation was also found to have a left apical thrombus and was being closely monitored. Cardiology was following closely. Patient was started on Eliquis along with Aldactone. Aspirin was discontinued. Entresto was reinitiated. Patient will also be maintained on Plavix at this time. 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 No in the outpatient setting previously. An appointment was made for 12/02/[address] No in the outpatient setting. Currently patient's condition is stable and would like to be discharged today. Patient denies any chest pain, no worsening shortness of breath, or palpitations. Patient is afebrile. She denies any nausea or vomiting and has been tolerating diet. Guarded prognosis. On exam vital signs are stable. Temp is 97.9F, pulse is 79, respirations are 18, blood pressure is 118/85, oxygen saturation is 98% on room air. Cardio S1, S2 are muffled. Respiratory system shows diminished breath sounds at the bases with a few scattered rhonchi noted. Abdomen is soft, obese, and nontender. Nervous system shows no focal deficits. Please refer to medication reconciliation sheet for a list of medications. Patient Condition at Discharge: Fair Plan - Discharge Summary Discharge Rx Participant: No New Discharge Prescriptions: New Spironolactone [Aldactone] 12.5 mg PO DAILY 30 Days #30 tab Apixaban [Eliquis] 5 mg PO BID 30 Days #60 tab Sacubitril/Valsartan [Entresto 24 mg-26 mg Tablet] 1 each PO BID 30 Days #60 tablet Furosemide [Lasix] 40 mg PO DAILY 30 Days #30 tab Continue Omeprazole 40 mg PO DAILY Carvedilol [Coreg*] 12.5 mg PO BID-W/MEALS #60 tab Atorvastatin [Lipitor] 80 mg PO DAILY #30 tab Clopidogrel [Plavix] 75 mg PO DAILY #30 tab Albuterol Nebulized [Ventolin Nebulized] 2.5 mg INHALATION RT-Q6H PRN PRN Reason: Shortness Of Breath Losartan [Cozaar] 12.5 mg PO DAILY LORazepam [Ativan] 0.5 mg PO DAILY PRN PRN Reason: Anxiety Discontinued Aspirin 81 mg PO DAILY #30 chew Discharge Medication List Omeprazole 40 mg PO DAILY 08/21/19 [History] Atorvastatin [Lipitor] 80 mg PO DAILY #30 tab 08/26/19 [Rx] Carvedilol [Coreg*] 12.5 mg PO BID-W/MEALS #60 tab 08/26/19 [Rx] Clopidogrel [Plavix] 75 mg PO DAILY #30 tab 08/26/19 [Rx] Albuterol Nebulized [Ventolin Nebulized] 2.5 mg INHALATION RT-Q6H PRN 11/15/19 [History] LORazepam [Ativan] 0.5 mg PO DAILY PRN 11/15/19 [History] Losartan [Cozaar] 12.5 mg PO DAILY 11/15/19 [History] Apixaban [Eliquis] 5 mg PO BID 30 Days #60 tab 11/19/19 [Rx] Furosemide [Lasix] 40 mg PO DAILY 30 Days #30 tab 11/19/19 [Rx] Sacubitril/Valsartan [Entresto 24 mg-26 mg Tablet] 1 each PO BID 30 Days #60 tablet 11/19/19 [Rx] Spironolactone [Aldactone] 12.5 mg PO DAILY 30 Days #30 tab 11/19/19 [Rx] Follow up Appointment(s)/Referral(s): Caleb Lopez MD [Primary Care Provider] - 11/21/19 1:40 pm () Castro Thornton MD [STAFF PHYSICIAN] - 11/22/19 4:00 pm (Monday -previously scheduled appointment) [facility], [NON-STAFF] - 1-2 Days Christian No MD [STAFF PHYSICIAN] - 12/02/19 9:45 am (first available appointment) Ambulatory/Diagnostic Orders: Basic Metabolic Panel [LAB.AMB] Time Frame: 2 Days, Location: None Selected Patient Instructions/Handouts: Heart Failure (DC), Heart Healthy Diet (DC) Activity/Diet/Wound Care/Special Instructions: CHF 1. Weigh yourself every morning after you urinate. If you gain 2-3 pounds overnight or 5 pounds in one week, call your primary physician for guidance on your medications. Keep a log of your weights. 2. Avoid salt, or foods with hidden salt. Extra salt makes your heart work harder and traps the fluid in your body for longer. 3. Take all of your medications as directed, especially your water pills. NEVER skip a dose. 4. Elevate your legs when you are not up moving around to help with circulation and prevent swelling. 5. Call your physician if you notice any extra swelling in your legs, ankles, feet or abdomen, if you have a new dry cough, if your shortness of breath worsens with activity or at rest, or if you feel more fatigued. activity limited until follow up follow up with pcp upon discharge follow up with cardiology as scheduled follow up with vascular surgery as scheduled continue current heart healthy diet and avoid salt repeat labs in 2-3 days
== END 2019-11-19 14:26 | disposition home health service (06) | DRG 291 ==
LOC: EC 08:39 → 3SCARD 11:38
PROVIDERS: ADMIT Hospitalist; ATTEND Hospitalist
PROC: 5A09357 Assistance with Respiratory Ventilation, Less than 24 Consecutive Hours, Continuous Positive Airway Pressure (ICD-10-PCS; principal; 2019-11-15)
DX: I13.0 Hypertensive heart and chronic kidney disease with heart failure and stage 1 through stage 4 chronic kidney disease, or unspecified chronic kidney disease (principal); I50.23 Acute on chronic systolic (congestive) heart failure; J96.01 Acute respiratory failure with hypoxia; N17.0 Acute kidney failure with tubular necrosis; E87.2 Acidosis; I16.1 Hypertensive emergency; N17.9 Acute kidney failure, unspecified; I51.3 Intracardiac thrombosis, not elsewhere classified; I25.82 Chronic total occlusion of coronary artery; K76.1 Chronic passive congestion of liver; J44.9 Chronic obstructive pulmonary disease, unspecified; I25.10 Atherosclerotic heart disease of native coronary artery without angina pectoris; E78.5 Hyperlipidemia, unspecified; I25.5 Ischemic cardiomyopathy; I71.9 Aortic aneurysm of unspecified site, without rupture; G47.33 Obstructive sleep apnea (adult) (pediatric); K21.9 Gastro-esophageal reflux disease without esophagitis; R79.89 Other specified abnormal findings of blood chemistry; N18.9 Chronic kidney disease, unspecified; I25.2 Old myocardial infarction; E66.9 Obesity, unspecified; Z68.32 Body mass index [BMI] 32.0-32.9, adult; Z79.82 Long term (current) use of aspirin; Z79.02 Long term (current) use of antithrombotics/antiplatelets; Z79.899 Other long term (current) drug therapy; Z71.3 Dietary counseling and surveillance; Z90.49 Acquired absence of other specified parts of digestive tract; Z95.5 Presence of coronary angioplasty implant and graft; Z90.710 Acquired absence of both cervix and uterus; Z87.891 Personal history of nicotine dependence; Z87.01 Personal history of pneumonia (recurrent); Z87.19 Personal history of other diseases of the digestive system; Z98.890 Other specified postprocedural states; Z88.1 Allergy status to other antibiotic agents; Z88.8 Allergy status to other drugs, medicaments and biological substances; Z80.8 Family history of malignant neoplasm of other organs or systems; Z82.49 Family history of ischemic heart disease and other diseases of the circulatory system
CPT/HCPCS: 36415; 71045; 74150; 80048; 80053; 81003; 83605; 83735; 83880; 84484; 85025; 85610; 85730; 87502; 93005; 93306; 94640; 94660; 94760; 96365; 96366; 96374; 99291

== ENCOUNTER 2020-01-08 06:27 | Day surgery (SDC) | payer BC ==
[2020-01-06 16:10] VITALS: BMI 31.8
[~2020-01-08 06:27] MED LIST changes: +LACTATED RINGERS 1,000 ML IV SCH; +LIDOCAINE 1% 20 ML VIAL (10MG/ML) FOR IV START INTRADERMA PRN; -METOPROLOL TARTRATE 5 MG/5 ML VIAL IVP ONE; +MOXIFLOXACIN HCL 0.5% DROPS 3 ML BTL OP ONE; -NITROGLYCERIN SL TABS 0.4 MG TAB SUBLINGUAL ONE; +TETRACAINE 0.5% OPHTH (PF) DROPS 4 ML BTL OP ONE; +TIMOLOL 0.5% OPHTH DROPS 5 ML BTL OP ONE; +TOBRAMYCIN 0.3% OPHTH DROPS 5 ML BTL RIGHT EYE PRN; -VERAPAMIL 2.5 MG/ML 2 ML AMP ONE; -amLODIPine 5 MG TAB ONE
[2020-01-08] MEDS: PHENYLEPHRINE 2.5% OPHTH DRP 2ML OP NR ×3 (06:53→07:10)
[2020-01-08] MEDS: CYCLOPENTOLATE 1% OPHTH SOLN 2 ML BTL OP ONE ×3 (06:56→07:14)
[2020-01-08 07:00] VITALS: RESP 16; TEMP 98.2
[2020-01-08] MEDS ORDERED: fentaNYL (PF) 50 MCG/ML 2 ML AMP ONE (07:21)
[2020-01-08] MEDS ORDERED: MIDAZOLAM 2 MG/2 ML VIAL ONE (07:21)
[2020-01-08] MEDS ORDERED: HYALURONATE SODIUM INTRAOCULAR 1 EACH SYRINGE (12MG/ML) INTRAOCULA ONE (07:39)
[2020-01-08] MEDS ORDERED: BALANCED SALT IRRIG SOLN COMB2 15 ML IRRIG.SOLN IRRIGATION ONE (07:39)
[2020-01-08] MEDS ORDERED: LIDOCAINE 1% (PF) 10MG/ML VIAL MISCELLANE ONE (07:39)
[2020-01-08] MEDS ORDERED: EPINEPHrine (PF) 0.3 ML in BALANCED SALT IRRIG SOLN COMB2 500 ML IRRIGATION ONE (07:42)
--- NOTE | 2020-01-08 07:52 | P.OP ---
Date of Procedure: 01/08/20 Preoperative Diagnosis: NS Postoperative Diagnosis: same Procedure(s) Performed: PIOL< OD Implants: MX60 15.50 Anesthesia: MAC Surgeon: Jose Villaseñor Pathology: none sent Condition: stable Disposition: same day Indications for Procedure: blurry vision Operative Findings: no complications
[2020-01-08 08:28] VITALS: BP 111/65; PULSE 75
--- NOTE | 2020-01-08 22:56 | OP ---
OPERATIVE REPORT DATE OF SURGERY: 01/08/2020. PROCEDURE: Phacoemulsification of cataract and intraocular lens implant of the right eye. PREOPERATIVE DIAGNOSIS: Nuclear sclerosis. POSTOPERATIVE DIAGNOSIS: Nuclear sclerosis. ESTIMATED BLOOD LOSS: Zero. SPECIMEN TAKEN: None. NARRATIVE: After obtaining the appropriate consent, the patient was brought to the operating room, where the patient was placed under cardiac monitoring and prepped and draped in the usual sterile manner. At the 11 o'clock position a 15-degree super sharp blade was used to create a paracentesis followed by instillation of 1% Xylocaine MPF 50:50 mix with BSS into the anterior chamber. This was followed by Amvisc to stabilize the anterior chamber. At the 9 o'clock position a self-sealing corneal flap incision was created using a 2.8 mm saba keratome. A cystotome was used to initiate a continuous tear capsulorrhexis, which was completed with the Utrata forceps. A Binkhorst cannula was used to hydrodissect the lens nucleus followed by hydrodelineation. Phacoemulsification of the lens was performed utilizing Phaco Chop in 11.87 seconds at 14% power. The remaining cortical material was removed using the irrigation aspiration mode followed by additional 1% Xylocaine MPF into the anterior chamber followed by viscoelastic to stabilize the capsular bag. A Bausch [employer] Lomb MX 60E 15.5 diopter posterior chamber lens was placed into the capsular bag without difficulty. The remaining viscoelastic material was removed from the anterior chamber with the irrigation/aspiration. Balanced-salt solution was used to normalize the intraocular pressure. The incision was checked for watertight integrity. The patient then received two drops of 0.5% timolol followed by two drops Vigamox, was lightly patched and shielded in the usual manner. There were no complications from the procedure. The patient tolerated the procedure well and was returned to Recovery in good condition. MMODL / IJN: [id number] /
== END 2020-01-08 08:30 | disposition home or self-care (01) ==
LOC: OR 06:27
PROVIDERS: ATTEND Ophthalmology
DX: H25.13 Age-related nuclear cataract, bilateral (principal); H40.003 Preglaucoma, unspecified, bilateral; H34.212 Partial retinal artery occlusion, left eye; I11.0 Hypertensive heart disease with heart failure; I50.811 Acute right heart failure; H00.023 Hordeolum internum right eye, unspecified eyelid; H00.026 Hordeolum internum left eye, unspecified eyelid; H52.13 Myopia, bilateral; H52.223 Regular astigmatism, bilateral; H52.4 Presbyopia; J45.909 Unspecified asthma, uncomplicated; F41.9 Anxiety disorder, unspecified; M19.90 Unspecified osteoarthritis, unspecified site; E03.9 Hypothyroidism, unspecified; J34.9 Unspecified disorder of nose and nasal sinuses; J43.9 Emphysema, unspecified; M54.9 Dorsalgia, unspecified; M25.50 Pain in unspecified joint; R51 Headache; I25.10 Atherosclerotic heart disease of native coronary artery without angina pectoris; I25.2 Old myocardial infarction; E78.5 Hyperlipidemia, unspecified; G47.33 Obstructive sleep apnea (adult) (pediatric); N28.9 Disorder of kidney and ureter, unspecified; K21.9 Gastro-esophageal reflux disease without esophagitis; Z88.1 Allergy status to other antibiotic agents; Z95.5 Presence of coronary angioplasty implant and graft; Z90.710 Acquired absence of both cervix and uterus; Z79.899 Other long term (current) drug therapy; Z79.01 Long term (current) use of anticoagulants; Z79.02 Long term (current) use of antithrombotics/antiplatelets; Z83.518 Family history of other specified eye disorder; Z80.9 Family history of malignant neoplasm, unspecified; Z83.3 Family history of diabetes mellitus; Z82.49 Family history of ischemic heart disease and other diseases of the circulatory system; Z83.49 Family history of other endocrine, nutritional and metabolic diseases; Z97.3 Presence of spectacles and contact lenses; Z88.8 Allergy status to other drugs, medicaments and biological substances; Z87.891 Personal history of nicotine dependence; Z86.79 Personal history of other diseases of the circulatory system; Z98.890 Other specified postprocedural states
CPT/HCPCS: 66984; V2632; J2250; J0171; J3010; J2001

== ENCOUNTER 2020-01-22 10:05 | Day surgery (SDC) | payer BC ==
[2020-01-20 16:58] VITALS: BMI 32.1
[~2020-01-22 10:05] MED LIST changes: +LIDOCAINE 1% (10MG/ML) FOR IV START INTRADERMA PRN; -LIDOCAINE 1% 20 ML VIAL (10MG/ML) FOR IV START INTRADERMA PRN; +TOBRAMYCIN 0.3% OPHTH DROPS 5 ML BTL LEFT EYE PRN; -TOBRAMYCIN 0.3% OPHTH DROPS 5 ML BTL RIGHT EYE PRN
[2020-01-22 10:38] VITALS: TEMP 97.6
[2020-01-22] MEDS ORDERED: LACTATED RINGERS 1,000 ML IV ONE (10:38)
[2020-01-22] MEDS: CYCLOPENTOLATE 1% OPHTH SOLN 2 ML BTL OP ONE ×2 (10:40→10:58)
[2020-01-22] MEDS: PHENYLEPHRINE 2.5% OPHTH DRP 2ML OP NR ×3 (10:45→11:03)
[2020-01-22] MEDS ORDERED: MIDAZOLAM 2 MG/2 ML VIAL ONE (12:09)
[2020-01-22] MEDS ORDERED: fentaNYL (PF) 50 MCG/ML 2 ML AMP ONE (12:09)
[2020-01-22] MEDS ORDERED: BALANCED SALT IRRIG SOLN COMB2 15 ML IRRIG.SOLN IRRIGATION ONE (12:25)
[2020-01-22] MEDS ORDERED: HYALURONATE SODIUM INTRAOCULAR 1 EACH SYRINGE (12MG/ML) INTRAOCULA ONE (12:25)
[2020-01-22] MEDS ORDERED: LIDOCAINE 1% (PF) 10MG/ML VIAL INTRAARTIC ONE (12:26)
[2020-01-22] MEDS ORDERED: EPINEPHrine (PF) 0.3 ML in BALANCED SALT IRRIG SOLN COMB2 500 ML IRRIGATION ONE (12:28)
--- NOTE | 2020-01-22 12:44 | P.OP ---
Date of Procedure: 01/22/20 Preoperative Diagnosis: NS Postoperative Diagnosis: same Procedure(s) Performed: PIOL, OS Implants: MX60 16.00 Anesthesia: MAC Surgeon: Jose Villaseñor Pathology: none sent Condition: stable Disposition: same day Indications for Procedure: blurry vision Operative Findings: No complications
[2020-01-22 12:47] VITALS: RESP 16
[2020-01-22 13:01] VITALS: BP 124/83; PULSE 68
--- NOTE | 2020-01-23 07:31 | OP ---
OPERATIVE REPORT DATE OF SURGERY: 01/22/2020. PROCEDURE: Phacoemulsification of cataract and intraocular lens implant of the left eye. PREOPERATIVE DIAGNOSIS: Nuclear sclerosis. POSTOPERATIVE DIAGNOSIS: Nuclear sclerosis OPERATION: Clear cornea phacoemulsification of cataract left eye. ESTIMATED BLOOD LOSS: Zero. SPECIMEN TAKEN: None. NARRATIVE: After obtaining the appropriate consent, the patient was brought to the Operating Room where the patient was placed under cardiac monitoring and prepped and draped in the usual sterile manner. At the 5 o'clock position a 15 degree super sharp blade was used to create a paracentesis followed by instillation of 1% Xylocaine MPF 50:50 mix with BSS into the anterior chamber. This was followed by Amvisc to stabilize the anterior chamber. At the 3 o'clock position a self-sealing corneal flap incision was created using 2.8 mm saba keratome. A cystotome was used to initiate a continuous tear capsulorrhexis which was completed with the Utrata forceps. A Binkhorst cannula was used to hydrodissect the lens nucleus followed by hydrodelineation. Phacoemulsification of the lens was performed utilizing phaco-chop in 8.79 seconds at 16% power. The remaining cortical material was removed using the irrigation aspiration mode followed by additional 1% Xylocaine MPF into the anterior chamber followed by viscoelastic to stabilize the capsular bag. A Bausch and Lomb MX 60E 16.0 diopters posterior chamber lens was placed into the capsular bag without difficulty. The remaining viscoelastic material was removed from the anterior chamber with the irrigation/aspiration. Balanced salt solution was used to normalize the intraocular pressure. The incision was checked for watertight integrity. The patient then received two drops of 0.5% timolol followed by two drops Vigamox, was lightly patched and shielded in the usual manner. There were no complications from the procedure. The patient tolerated the procedure well and was returned to recovery in good condition. MMODL / IJN: [id number] /
== END 2020-01-22 13:14 | disposition home or self-care (01) ==
LOC: OR 10:05
PROVIDERS: ATTEND Ophthalmology
DX: H25.12 Age-related nuclear cataract, left eye (principal); H40.003 Preglaucoma, unspecified, bilateral; H34.212 Partial retinal artery occlusion, left eye; H00.026 Hordeolum internum left eye, unspecified eyelid; H00.023 Hordeolum internum right eye, unspecified eyelid; H52.13 Myopia, bilateral; H52.223 Regular astigmatism, bilateral; I11.0 Hypertensive heart disease with heart failure; I50.9 Heart failure, unspecified; I25.10 Atherosclerotic heart disease of native coronary artery without angina pectoris; I25.2 Old myocardial infarction; E78.5 Hyperlipidemia, unspecified; I25.5 Ischemic cardiomyopathy; K21.9 Gastro-esophageal reflux disease without esophagitis; K44.9 Diaphragmatic hernia without obstruction or gangrene; G47.33 Obstructive sleep apnea (adult) (pediatric); F41.9 Anxiety disorder, unspecified; M19.90 Unspecified osteoarthritis, unspecified site; E03.9 Hypothyroidism, unspecified; J43.9 Emphysema, unspecified; Z95.5 Presence of coronary angioplasty implant and graft; Z99.89 Dependence on other enabling machines and devices; Z98.41 Cataract extraction status, right eye; Z96.1 Presence of intraocular lens; Z79.01 Long term (current) use of anticoagulants; Z79.899 Other long term (current) drug therapy; Z79.02 Long term (current) use of antithrombotics/antiplatelets; Z88.1 Allergy status to other antibiotic agents; Z88.8 Allergy status to other drugs, medicaments and biological substances; Z98.890 Other specified postprocedural states; Z90.710 Acquired absence of both cervix and uterus; Z90.49 Acquired absence of other specified parts of digestive tract; Z83.3 Family history of diabetes mellitus; Z83.518 Family history of other specified eye disorder; Z80.9 Family history of malignant neoplasm, unspecified; Z82.49 Family history of ischemic heart disease and other diseases of the circulatory system; Z83.49 Family history of other endocrine, nutritional and metabolic diseases
CPT/HCPCS: 66984; V2632; J2250; J0171; J3010; J2001

== ENCOUNTER → 2020-05-26 | Outpatient (CLI) | payer BC ==
[2020-05-26 12:25] LABS: Basophils % (A) 0 %; Eosinophils # (A) 0.1 k/uL (0-0.7); Eosinophils % (A) 1 %; HCT 38.1 % (34.0-46.0); HGB 11.8 gm/dL (11.4-16.0); Hypochromasia Slight; Lymphocytes # (A) 1.2 k/uL (1.0-4.8); Lymphocytes % (A) 13 %; MCH 26.6 pg (25.0-35.0); MCHC 30.9 g/dL (31.0-37.0); MCV 86.1 fL (80.0-100.0); Mean Platelet Volume 7.2; Monocytes # (A) 0.5 k/uL (0-1.0); Monocytes % (A) 6 %; Neutrophils # (A) 7.4 k/uL (1.3-7.7); Neutrophils % (A) 80 %; Platelet Count 443 k/uL (150-450); RBC 4.42 m/uL (3.80-5.40); WBC 9.3 k/uL (3.8-10.6)
[2020-05-26 18:38] LABS: African American GFR (CKD) 30.9 (60.0-200.0); Albumin 4.6 g/dL (3.80-4.90); Albumin/Globulin Ratio 1.92 (1.60-3.17); Anion Gap 11.1 mmol/L (4.00-12.00); Calcium 9.8 mg/dL (8.7-10.3); Carbon Dioxide 27.9 mmol/L (21.6-31.8); Chol/HDL Ratio 5.41; Globulin 2.4 g/dL (1.6-3.3); LDL Cholesterol,Calculated 165.8 mg/dL (0.0-131.0); Magnesium 2.2 mg/dL (1.5-2.4); Non-African American GFR(CKD) 26.7 (60.0-200.0); Potassium 4.8 mmol/L (3.5-5.5); Total Bilirubin 0.4 mg/dL (0.3-1.2); VLDL Calculation 59.2 mg/dL (5.00-40.00)
== END | disposition home or self-care (01) ==
LOC: LABWHC1 10:58
PROVIDERS: ATTEND Nurse Practitioner Adult Health
DX: I10 Essential (primary) hypertension (principal); R00.2 Palpitations; E78.5 Hyperlipidemia, unspecified
CPT/HCPCS: 36415; 80053; 80061; 83735; 84443; 84481; 85025

== ENCOUNTER → 2020-10-07 | Day surgery (SDC) | payer BC ==
[2020-10-02 15:39] VITALS: BMI 33.7
[~2020-10-07] MED LIST changes: +LIDOCAINE 1% (10MG/ML) FOR IV START INTRADERMA ONE; -LIDOCAINE 1% (10MG/ML) FOR IV START INTRADERMA PRN; +LIDOCAINE 1% INJ 10MG/ML (20 ML MDV) ONE; +MIDAZOLAM 2 MG/2 ML VIAL IV PRN; -MOXIFLOXACIN HCL 0.5% DROPS 3 ML BTL OP ONE; +ONDANSETRON 4 MG/2 ML VIAL IVP PRN; +PROPOFOL 10 MG/ML 20 ML VIAL IV ONE; -TETRACAINE 0.5% OPHTH (PF) DROPS 4 ML BTL OP ONE; -TIMOLOL 0.5% OPHTH DROPS 5 ML BTL OP ONE; -TOBRAMYCIN 0.3% OPHTH DROPS 5 ML BTL LEFT EYE PRN
[2020-10-07 08:20] VITALS: TEMP 97.7
--- NOTE | 2020-10-07 08:44 | P.GSHP ---
History of Present Illness H&P Date: 10/07/20 CHIEF COMPLAINT: GERD HISTORY OF PRESENT ILLNESS: The patient is a 60-year-old female who presents reports gastroesophageal reflux disease. Upper endoscopy was offered for further evaluation and management. PAST MEDICAL HISTORY: Please see list. PAST SURGICAL HISTORY: Please see list. MEDICATIONS: Please see list. ALLERGIES: Please see list. SOCIAL HISTORY: No illicit drug use FAMILY HISTORY: No reports of Crohn disease or ulcerative colitis. REVIEW OF ORGAN SYSTEMS: CONSTITUTIONAL: No reports of fevers or chills. GI: Denies any blood in stools or constipation. PHYSICAL EXAM: VITAL SIGNS: Stable GENERAL: Well-developed and pleasant in no acute distress. HEENT: No scleral icterus. Extraocular movements grossly intact. Moist buccal mucosa. NECK: Supple without lymphadenopathy. CHEST: Unlabored respirations. Equal bilateral excursions. CARDIOVASCULAR: Regular rate and rhythm. Distal 2+ pulses. ABDOMEN: Soft, nondistended. MUSCULOSKELETAL: No clubbing, cyanosis, or edema. ASSESSMENT: 1. Gastroesophageal reflux disease PLAN: 1. Recommend proceeding with an upper endoscopy Past Medical History Past Medical History: Asthma, Coronary Artery Disease (CAD), Heart Failure, COPD, GERD/Reflux, GI Bleed, Hypertension, Myocardial Infarction (MA), Musculoskeletal Disorder, Pneumonia, Sleep Apnea/CPAP/BIPAP Additional Past Medical History / Comment(s): Hiatal hernia, diverticulitis, chronic bilateral carpal tunnel syndrome, no CPAP use, hx lower GI bleed, varicose vein. States "2 stents plugged up but body made it's own pathway." Denies MA, states she had Pneumonia and possibly Covid. Last Myocardial Infarction Date:: 08-23-2019 History of Any Multi-Drug Resistant Organisms: None Reported Past Surgical History: Cholecystectomy, Heart Catheterization, Heart Catheterization With Stent, Hysterectomy Additional Past Surgical History / Comment(s): EGD with benign bx, colonoscopy, bilateral cataracts removed. 2 Cardiac stents. Past Anesthesia/Blood Transfusion Reactions: No Reported Reaction Additional Past Anesthesia/Blood Transfusion Reaction / Comment(s): CLAUSTROPHOBIA. Date of Last Stent Placement:: 2006 Past Psychological History: Anxiety Smoking Status: Former smoker Past Alcohol Use History: None Reported Additional Past Alcohol Use History / Comment(s): Pt started smoking in 1977 and quit August 23, 2019. Past Drug Use History: None Reported - Past Family History Brother(s) Family Medical History: Cancer Additional Family Medical History / Comment(s): Tongue cancer. Mother Family Medical History: Hypertension, Myocardial Infarction (MA) Additional Family Medical History / Comment(s): 4 MONTHS AFTER FROM "COMPLICATIONS OF A BROKEN HEART" Father Additional Family Medical History / Comment(s): RHEUMATIC FEVER TWICE CHILD. HAD VALVE REPLACEMENT Medications and Allergies Home Medications Medication Instructions Recorded Confirmed Type Omeprazole 40 mg PO DAILY 08/21/19 10/07/20 History Atorvastatin [Lipitor] 80 mg PO DAILY #30 tab 08/26/19 10/07/20 Rx Albuterol Nebulized [Ventolin 2.5 mg INHALATION RT-Q6H PRN 11/15/19 10/07/20 History Nebulized] LORazepam [Ativan] 0.5 mg PO DAILY PRN 11/15/19 10/07/20 History Sacubitril/Valsartan [Entresto 24 1 each PO BID 30 Days #60 tablet 11/19/19 10/07/20 Rx mg-26 mg Tablet] Spironolactone [Aldactone] 12.5 mg PO DAILY 30 Days #30 tab 11/19/19 10/07/20 Rx Escitalopram Oxalate [Lexapro] 10 mg PO DAILY 10/02/20 10/07/20 History Furosemide [Lasix] 40 mg PO DAILY 10/02/20 10/07/20 History carvediloL [Coreg*] 12.5 mg PO BID 10/02/20 10/07/20 History Allergies Allergy/AdvReac Type Severity Reaction Status Date / Time levofloxacin [From Levaquin] AdvReac Cough Verified 10/07/20 08:04 lisinopril AdvReac Cough Verified 10/07/20 08:04 Surgical - Exam Vital Signs Temp Pulse Resp BP Pulse Ox 97.7 F 76 18 117/71 100 10/07/20 08:18 10/07/20 08:18 10/07/20 08:18 10/07/20 08:18 10/07/20 08:18
--- NOTE | 2020-10-07 09:10 | P.PCN ---
Date of Procedure: 10/07/20 Description of Procedure: PREOPERATIVE DIAGNOSIS: Gastroesophageal reflux disease. Morbid obesity. POSTOPERATIVE DIAGNOSIS: Morbid obesity. Gastritis. Gastroesophageal reflux disease. Diaphragmatic hiatal hernia OPERATION: Esophagogastroduodenoscopy with biopsies along antrum. SURGEON: Linda Chirinos MD ANESTHESIA: MAC. INDICATIONS: The patient is a 60-year-old female who presents with a history of reflux disease. Benefits and risks of the procedure were described. Informed consent was obtained. DESCRIPTION: The patient was brought into the endoscopy suite and laid in the left lateral decubitus position. An Olympus gastroscope was passed along the posterior oropharynx down to the distal esophagus where the squamocolumnar junction was encountered at 36 cm from the incisors. The stomach was entered and no bile reflux was found. Additional findings are listed below. Biopsies with cold fo rceps were obtained of the antrum. The first through third portion of the duodenum was examined and unremarkable. Retroflexion of the scope confirmed Hill grade 4 lower esophageal valve. The squamocolumnar junction demonstrated LA grade B erosive esophagitis. The stomach was desufflated. The patient tolerated the procedure well. FINDINGS: Squamocolumnar junction 36 cm from the incisors. Diaphragmatic hiatus at 39 cm. Hiatal hernia, 3 cm Hill grade 4 lower esophageal valve. LA grade B erosive esophagitis. No active duodenitis. Chronic gastritis RECOMMENDATIONS: Upper endoscopy as needed. Plan - Discharge Summary Discharge Rx Participant: No New Discharge Prescriptions: Continue Omeprazole 40 mg PO DAILY Atorvastatin [Lipitor] 80 mg PO DAILY #30 tab Albuterol Nebulized [Ventolin Nebulized] 2.5 mg INHALATION RT-Q6H PRN PRN Reason: Shortness Of Breath LORazepam [Ativan] 0.5 mg PO DAILY PRN PRN Reason: Anxiety Spironolactone [Aldactone] 12.5 mg PO DAILY 30 Days #30 tab Sacubitril/Valsartan [Entresto 24 mg-26 mg Tablet] 1 each PO BID 30 Days #60 tablet carvediloL [Coreg*] 12.5 mg PO BID Furosemide [Lasix] 40 mg PO DAILY Escitalopram Oxalate [Lexapro] 10 mg PO DAILY Discharge Medication List Omeprazole 40 mg PO DAILY 08/21/19 [History] Atorvastatin [Lipitor] 80 mg PO DAILY #30 tab 08/26/19 [Rx] Albuterol Nebulized [Ventolin Nebulized] 2.5 mg INHALATION RT-Q6H PRN 11/15/19 [History] LORazepam [Ativan] 0.5 mg PO DAILY PRN 11/15/19 [History] Sacubitril/Valsartan [Entresto 24 mg-26 mg Tablet] 1 each PO BID 30 Days #60 tablet 11/19/19 [Rx] Spironolactone [Aldactone] 12.5 mg PO DAILY 30 Days #30 tab 11/19/19 [Rx] Escitalopram Oxalate [Lexapro] 10 mg PO DAILY 10/02/20 [History] Furosemide [Lasix] 40 mg PO DAILY 10/02/20 [History] carvediloL [Coreg*] 12.5 mg PO BID 10/02/20 [History] Follow up Appointment(s)/Referral(s): Linda Chirinos MD [STAFF PHYSICIAN] - 10/20/20 Patient Instructions/Handouts: Hiatal Hernia (DC) Discharge Disposition: HOME SELF-CARE
[2020-10-07 09:17] VITALS: RESP 16
[2020-10-07 09:27] VITALS: BP 107/54; PULSE 66
== END | disposition home or self-care (01) ==
LOC: ORWHC2ENDO 07:42
PROVIDERS: ATTEND Surgery Plastic and Reconstructive Surgery
DX: K29.50 Unspecified chronic gastritis without bleeding (principal); K44.9 Diaphragmatic hernia without obstruction or gangrene; K21.00 Gastro-esophageal reflux disease with esophagitis, without bleeding; I11.0 Hypertensive heart disease with heart failure; I50.9 Heart failure, unspecified; I25.10 Atherosclerotic heart disease of native coronary artery without angina pectoris; I25.2 Old myocardial infarction; F41.9 Anxiety disorder, unspecified; G47.33 Obstructive sleep apnea (adult) (pediatric); J44.9 Chronic obstructive pulmonary disease, unspecified; F40.240 Claustrophobia; E66.01 Morbid (severe) obesity due to excess calories; Z79.899 Other long term (current) drug therapy; Z79.02 Long term (current) use of antithrombotics/antiplatelets; Z88.1 Allergy status to other antibiotic agents; Z88.8 Allergy status to other drugs, medicaments and biological substances; Z87.01 Personal history of pneumonia (recurrent); Z87.891 Personal history of nicotine dependence; Z98.41 Cataract extraction status, right eye; Z98.42 Cataract extraction status, left eye; Z95.5 Presence of coronary angioplasty implant and graft; Z90.49 Acquired absence of other specified parts of digestive tract; Z99.89 Dependence on other enabling machines and devices; Z80.0 Family history of malignant neoplasm of digestive organs; Z82.49 Family history of ischemic heart disease and other diseases of the circulatory system; Z68.34 Body mass index [BMI] 34.0-34.9, adult
CPT/HCPCS: 88305; 43239; J2001; J2704

== ENCOUNTER → 2021-03-04 | Outpatient (CLI) | payer BC ==
--- NOTE | 2021-03-05 05:38 | MR ---
EXAMINATION TYPE: MR ankle LT wo con DATE OF EXAM: 03/04/2021 COMPARISON: None HISTORY: Lt ankle pain due to slip down stairs x 6 months Multiplanar multiecho imaging of the left ankle was performed without contrast. The collateral ligaments are intact. Achilles tendon is intact. Plantar fascia is intact. The medial and lateral flexor tendons of the ankle appear intact. I see no bony destructive process. There is no evidence for fracture. Visualized metatarsals are inta ct. There is no evidence of a soft tissue mass. There is slight increased ankle joint fluid. IMPRESSION: No evidence of fracture. No evidence of ligament or tendon tear. Small ankle joint effusion consistent with mild synovitis.
== END | disposition home or self-care (01) ==
LOC: RADMRIMAIN 07:37
PROVIDERS: ATTEND Podiatrist
DX: M25.472 Effusion, left ankle (principal)

== ENCOUNTER → 2021-08-06 | Outpatient (CLI) | payer BC ==
--- NOTE | 2021-08-06 14:09 | MM ---
Reason for exam: additional evaluation requested from prior study. Last mammogram was performed 1 year and 11 months ago. History: Patient is postmenopausal. Family history of breast cancer in maternal cousin at age 50 and breast cancer in paternal grandmother. Benign US biopsy breast VAD LT of the left breast, September 11, 2019. Benign US biopsy breast add'l VAD LT of the left breast, September 11, 2019. Physical Findings: Nurse did not find any significant physical abnormalities on exam. MG 3D Diag Mammo W/Cad AN Bilateral CC and MLO view(s) were taken. Prior study comparison: September 11, 2019, left breast MG diagnostic mammo LT wo CAD. August 20, 2019, left breast MG 3d work up w/cad LT. There are scattered fibroglandular densities. Stable benign calcifications. Previous mammotome biopsy in the right and left breast. No significant new findings when compared with previous films. These results were verbally communicated with the patient and result sheet given to the patient on 08/06/21. ASSESSMENT: Incomplete: need additional imaging evaluation, BI-RAD 0 RECOMMENDATION: Ultrasound of the left breast.
--- NOTE | 2021-08-06 14:10 | USB ---
Reason for exam: additional evaluation requested from abnormal screening. History: Patient is postmenopausal. Family history of breast cancer in maternal cousin at age 50 and breast cancer in paternal grandmother. Benign US biopsy breast VAD LT of the left breast, September 11, 2019. Benign US biopsy breast add'l VAD LT of the left breast, September 11, 2019. US Breast LT Left complete breast ultrasound includes all four quadrants, the retroareolar region and axilla. Finding demonstrates a 1.2 x 0.7 x 1.1cm oval, hypoechoic lesion at 2 o'clock, clip seen and a 0.6 x 0.4 x 0.4cm oval, hypoechoic lesion at 11 o'clock, clip seen. These results were verbally communicated with the patient and result sheet given to the patient on 08/06/21. ASSESSMENT: Benign, BI-RAD 2 RECOMMENDATION: Routine screening mammogram of both breasts in 1 year.
== END | disposition home or self-care (01) ==
LOC: RADMAMWWP 12:59
PROVIDERS: ATTEND Surgery
DX: N64.89 Other specified disorders of breast (principal); R92.1 Mammographic calcification found on diagnostic imaging of breast; Z78.0 Asymptomatic menopausal state; Z80.3 Family history of malignant neoplasm of breast
CPT/HCPCS: 77062; 77066

== ENCOUNTER → 2021-08-06 | Outpatient (CLI) | payer BC ==
--- NOTE | 2021-08-06 14:57 | US ---
EXAMINATION TYPE: US kidneys/renal and bladder DATE OF EXAM: 08/06/2021 COMPARISON: NONE CLINICAL HISTORY: N18.3 CKD stage 3. EXAM MEASUREMENTS: Right Kidney: 8.3 x 4.7 x 4.8 cm Left Kidney: 9.0 x 4.8 x 5.1 cm Right Kidney: No hydronephrosis or masses seen Left Kidney: No hydronephrosis or masses seen Bladder: wnl Bilateral Jets seen: Yes There is no evidence for hydronephrosis at this point in time. No nephrolithiasis is seen. No michelle s are identified. The urinary bladder is anechoic. Bilateral ureteral jets are seen. IMPRESSION: Negative study
== END | disposition home or self-care (01) ==
LOC: RADUSWWP 13:51
PROVIDERS: ATTEND Internal Medicine
DX: N18.30 Chronic kidney disease, stage 3 unspecified (principal)
CPT/HCPCS: 76770

== ENCOUNTER → 2021-08-20 | Outpatient (CLI) | payer BC ==
[2021-08-20 14:30] VITALS: BP 113/70; PULSE 62; RESP 12; TEMP 97.5
--- NOTE | 2021-08-20 14:57 | P.PN ---
Subjective Progress Note Date: 08/20/21 Principal diagnosis: Fibrocystic breast changes discordant core biopsy at 11 oclock left breast The patient is a 59 year old white female with a complaint of a mammogram and ultrasound showing two areas of concern in the left breast. Her last mammogram prior to this was approximately 3 years ago. This was a routine screening mammogram. On radiograph she was noted to have 2 areas of concern in the left breast which will be demonstrated by ultrasound and ultrasound-guided core biopsy of these areas was recommended. The patient does not feel any lumps or masses in her breast. She is not complaining of any pain in her breast. She had no nipple discharge of concern or skin changes in the breast of concern. She has no history of any infection or trauma to the breast. She underwent ultrasound-guided core biopsies of 2 areas in the breast on [id number]. The lesion at 11:00 was noted to be benign breast tissue with fibroadenomatous change, and the lesion at 2:00 was sclerotic breast tissue with fibroadenomatoid change. The radiographs were reviewed with the radiologist and it was felt that the lesion at 11:00 was discordant. Therefore she was recommended that the patient undergo needle localization and excision of this area. The procedure was scheduled the patient developed congestive heart failure and the procedure was subsequently canceled. Following that, it became an issue and the patient is only returning at this time for further evaluation. It's most recent mammogram and ultrasound were [id number]. The findings revealed a 1.2 x 0.7 cm hypoechoic lesion at 2:00 and a 0.6 x 0.4 cm lesion at 11:00. This was read as benign BIRADS 2. She complains of back pain as well as bilateral shoulder notching secondary to her heavy breasts. Her right breast is larger than her left breast. Family history: 1.brother: tongue cancer 2. maternal aunt: bone cancer 3. paternal grandmother: breast cancer Hormonal History: menarche: 12 , breast fed: no, age at : 25 menopause: hysterectomy at 40, took both ovaries done for bleeding BCP: 1 1/2 year hormones: 6 months after hysterectomy Past Surgical Hysterectomy: 1. hysterectomy and bilateral oophrectomy 2. cholycystectomy 3. two heart stints Medical History: 1 CAD 2. diverticulosis 3. asthma 4. back pain 5. bilateral shoulder notching Social History: smoke: 1/2 PPD 45 years alcohol: none drugs: none - Constitutional Constitutional: Denies chills, Denies fever - EENT Eyes: denies blurred vision, denies pain Ears: deny: decreased hearing, tinnitus Ears, nose, mouth and throat: Denies headache, Denies sore throat - Breasts Breasts: bilateral: as per HPI - Cardiovascular Comment: coronary artery diseases with stints which are not working at this time Cardiovascular: Reports high blood pressure - Respiratory Comment: smoker, asthma - Gastrointestinal Comment: diverticulitis, reflux Gastrointestinal: Denies abdominal pain, Denies diarrhea, Denies nausea, Denies vomiting - Genitourinary (Female) Genitourinary: Denies dysuria, Denies hematuria - Menstruation Menstruation: Reports post hysterectomy - Musculoskeletal Comment: back pain arthitis - Integumentary Comment: eczema - Neurological Comment: carpal tunnel Neurological: Reports numbness, Reports weakness - Psychiatric Psychiatric: Reports anxiety - Endocrine Comment: hypothyroid Endocrine: Reports fatigue, Denies weight change - Hematologic/Lymphatic Comment: none - Allergic/Immunologic Allergic/Immunologic: Reports seasonal allergies Objective - Vital Signs Vital signs: Vital Signs Temp 97.5 F L 08/20/21 14:21 Pulse 62 08/20/21 14:21 Resp 12 08/20/21 14:21 BP 113/70 08/20/21 14:21 Pulse Ox 100 08/20/21 14:21 Intake & Output 08/19/21 08/20/21 08/20/21 18:59 06:59 18:59 Weight 74.843 kg - Constitutional General appearance: Present: cooperative - EENT Eyes: Present: EOMI ENT: Present: hearing grossly normal - Neck Neck: Present: normal ROM - Respiratory Respiratory: bilateral: CTA - Cardiovascular Rhythm: regular Heart sounds: normal: S1, S2 - Integumentary Integumentary: Present: normal turgor - Musculoskeletal Musculoskeletal: Present: gait normal - Psychiatric Psychiatric: Present: A&O x's 3, appropriate affect, intact judgment & insight - Additional findings Additional findings: Breast Exam: BRA: 44DDD inspection: bilateral grade 3 ptosis, right breast larger than left breast Palpation: Right breast: multipositional exam fibrocystic changes no dominant masses or nodules of concern Right axilla: No adenopathy of concern Left breast: Multi-positional exam fibrocystic changes no dominant masses or nodules of concern Left axilla: No adenopathy of concern Assessment and Plan Assessment: Impression: Bilateral fibrocystic breast changes stable Macromastia Asymmetry of the breast Back pain related to macromastia Shoulder notching related to macromastia Plan: Bilateral mammogram in physician exam at that time. If patient notes anything sooner she will call us refer to plastic Cira CC: Dr. Lopez
== END ==
LOC: WWCWWP 14:20
PROVIDERS: ATTEND Surgery
DX: N60.11 Diffuse cystic mastopathy of right breast (principal); N60.12 Diffuse cystic mastopathy of left breast; N62 Hypertrophy of breast; N64.89 Other specified disorders of breast; I25.10 Atherosclerotic heart disease of native coronary artery without angina pectoris; F17.210 Nicotine dependence, cigarettes, uncomplicated; J45.909 Unspecified asthma, uncomplicated; Z80.3 Family history of malignant neoplasm of breast; Z88.1 Allergy status to other antibiotic agents; Z88.8 Allergy status to other drugs, medicaments and biological substances

== ENCOUNTER → 2021-12-17 | Outpatient (CLI) | payer BC ==
[2021-12-17 19:48] LABS: Basophils # (A) 0.05 X 10*3/uL (0.00-0.10); Basophils % (A) 0.8 %; Eosinophils % (A) 3.3 %; HCT 33.1 % (37.2-46.3); HGB 9.7 g/dL (12.0-15.0); Lymphocytes # (A) 1.52 X 10*3/uL (0.90-5.00); Lymphocytes % (A) 24.9 %; MCH 24.4 pg (27.0-32.0); MCHC 29.3 g/dL (32.0-37.0); MCV 83.4 fL (80.0-97.0); Mean Platelet Volume 10.9 fL (9.5-12.2); Monocytes # (A) 0.62 X 10*3/uL (0.20-1.00); Monocytes % (A) 10.1 %; Neutrophils # (A) 3.71 X 10*3/uL (1.80-7.70); Neutrophils % (A) 60.7 %; Platelet Count 432 X 10*3/uL (140-440); RBC 3.97 X 10*6/uL (4.10-5.20); RDW 14.1 % (11.5-14.5); WBC 6.11 X 10*3/uL (4.50-10.00)
[2021-12-17 20:05] LABS: African American GFR (CKD) 40.2 (60.0-200.0); Albumin 4.3 g/dL (3.8-4.9); Albumin/Globulin Ratio 1.35 (1.60-3.17); Anion Gap 12.1 mmol/L (10.00-18.00); BUN/Creat Ratio 20.25 Ratio (12.00-20.00); Blood Urea Nitrogen 32.4 mg/dL (9.0-27.0); Calcium 9.6 mg/dL (8.7-10.3); Carbon Dioxide 25.7 mmol/L (20.0-27.5); Globulin 3.2 g/dL (1.6-3.3); Non-African American GFR(CKD) 34.7 (60.0-200.0); T4, Free (Free Thyroxine) 1.03 ng/dL (0.800-1.800); Total Bilirubin 0.4 mg/dL (0.30-1.20); Total Protein 7.4 g/dL (6.2-8.2)
== END | disposition home or self-care (01) ==
LOC: LABWHC1 13:07
PROVIDERS: ATTEND Internal Medicine
DX: I11.0 Hypertensive heart disease with heart failure (principal); I50.9 Heart failure, unspecified; R42 Dizziness and giddiness
CPT/HCPCS: 36415; 80053; 83540; 83550; 83880; 84439; 84443; 85025

== ENCOUNTER → 2022-02-08 | Outpatient (CLI) | payer BC ==
--- NOTE | 2022-02-08 08:46 | MR ---
MR brain without contrast HISTORY: R 56, syncope Multiplanar multisequence imaging obtained through the brain, no comparisons There is no restricted diffusion to suggest subacute ischemia. The corpus callosum, pituitary, cervic al medullary junction, cerebellopontine angles are within normal limits. There are expected vascular flow voids. Orbits show symmetric appearance. There is no hemorrhage or hydrocephalus. Inflammatory c hanges present within the bilateral mastoid air cells, right maxillary sinus and ethmoid air cells. T here are scattered hyperintensities within the subcortical white matter on inversion recovery and T2- weighted sequences, partially 10-15 lesions, the largest on axial image 18 in the left frontal lobe m easures 4 mm. Cortical atrophy is likely age-related. IMPRESSION: Nonspecific white matter demyelination may be related to chronic small vessel ischemia. C orrelate for mastoiditis, there is sinus disease change. Probable age-related cortical atrophy.
== END | disposition home or self-care (01) ==
LOC: RADMRIMAIN 07:40
PROVIDERS: ATTEND Internal Medicine
DX: G37.8 Other specified demyelinating diseases of central nervous system (principal); J32.9 Chronic sinusitis, unspecified
CPT/HCPCS: 70551

== ENCOUNTER → 2022-03-10 | Outpatient (CLI) | payer BC ==
[2022-03-10 14:32] LABS: HCT 38.3 % (37.2-46.3); MCHC 31.3 g/dL (32.0-37.0); MCV 83.1 fL (80.0-97.0); Mean Platelet Volume 10.2 fL (9.5-12.2); NRBC Per 100 WBC 0 /100 WBCS (0.0-0.0); Platelet Count 337 X 10*3/uL (140-440); RBC 4.61 X 10*6/uL (4.10-5.20); RDW 16.3 % (11.5-14.5)
[2022-03-10 16:02] LABS: Ferritin 35.6 ng/mL (10.0-291.0)
[2022-03-10 16:17] LABS: Appearance,Urine Clear (Clear); Bacteria,Urine None Seen /HPF (None Seen); Bilirubin,Urine Negative (Negative); Blood,Urine Negative (Negative); Color,Urine Yellow (Yellow); Ketones,Urine Negative (Negative); Nitrite,Urine Negative (Negative); PH, Urine 6.5 (5.0-8.0); Specific Gravity,Urine 1.014 (1.001-1.030); UA Starch Present /LPF (None Seen); Urobilinogen,Urine 0.2 (0.2,1.0)
[2022-03-10 17:00] LABS: % Iron Saturation 9.04 (12.00-45.00); ALT 27 U/L (8-44); AST 45 U/L (13-35); African American GFR (CKD) 37.1 (60.0-200.0); Albumin 4.5 g/dL (3.8-4.9); Albumin/Globulin Ratio 1.88 (1.60-3.17); Alkaline Phosphatase 102 U/L (41-126); BUN/Creat Ratio 21.12 Ratio (12.00-20.00); Blood Urea Nitrogen 35.9 mg/dL (9.0-27.0); Calcium 9.6 mg/dL (8.7-10.3); Carbon Dioxide 21.1 mmol/L (20.0-27.5); Chloride 104 mmol/L (96-109); Globulin 2.4 g/dL (1.6-3.3); Glucose 90 mg/dL (70-110); Magnesium 2.1 mg/dL (1.5-2.4); Phosphorus 4.2 mg/dL (2.4-5.1); Potassium 5.4 mmol/L (3.5-5.5); Sodium 142 mmol/L (135-145); Total Bilirubin <0.15 mg/dL (0.30-1.20); Total Iron Binding Capacity 400 ug/dL (228-460); Total Protein 6.9 g/dL (6.2-8.2); Uric Acid 6.6 mg/dL (2.9-7.7)
[2022-03-10 17:36] LABS: Iron 36 ug/dL (50-170)
== END | disposition home or self-care (01) ==
LOC: LABWHC1 08:27
PROVIDERS: ATTEND Internal Medicine
DX: D64.9 Anemia, unspecified (principal); E55.9 Vitamin D deficiency, unspecified; N39.0 Urinary tract infection, site not specified; N25.81 Secondary hyperparathyroidism of renal origin; N18.32 Chronic kidney disease, stage 3b; M10.9 Gout, unspecified
CPT/HCPCS: 36415; 80053; 81001; 82306; 82728; 83540; 83550; 83735; 84100; 84550; 85027

== ENCOUNTER → 2022-05-18 | Outpatient (CLI) | payer BC ==
--- NOTE | 2022-05-18 17:01 | US ---
EXAMINATION TYPE: US venous doppler duplex LE LT DATE OF EXAM: 05/18/2022 4:47 PM COMPARISON: NONE CLINICAL HISTORY: M79.662 Pain in left lower leg. Pain and swelling x 2 weeks. No hx of DVT. Patient not taking blood thinners. SIDE PERFORMED: Left TECHNIQUE: The lower extremity deep venous system is examined utilizing real time linear array sonog mehreen with graded compression, doppler sonography and color-flow sonography. VESSELS IMAGED: Common Femoral Vein Deep Femoral Vein Greater Saphenous Vein * Femoral Vein Popliteal Vein Small Saphenous Vein * Proximal Calf Veins (* superficial vessels) Left Leg: No evidence of DVT in veins imaged. IMPRESSION: No evidence of deep vein thrombosis in the left leg.
== END | disposition home or self-care (01) ==
LOC: RADUSWWP 16:23
PROVIDERS: ATTEND Internal Medicine
DX: M79.662 Pain in left lower leg (principal); M79.89 Other specified soft tissue disorders

== ENCOUNTER → 2022-08-06 | Outpatient (CLI) | payer BC | END | disposition home or self-care (01) | LOC: LABWHC1 08:05 | PROVIDERS: ATTEND Nurse Practitioner Family | DX: Z53.9 Procedure and treatment not carried out, unspecified reason (principal) ==

== ENCOUNTER → 2022-08-11 | Outpatient (CLI) | payer BC ==
[2022-08-06 16:48] LABS: African American GFR (CKD) 34.4 (60.0-200.0); Albumin 4.2 g/dL (3.8-4.9); Albumin/Globulin Ratio 2.03 (1.60-3.17); Anion Gap 11.6 mmol/L (10.00-18.00); BUN/Creat Ratio 25.08 Ratio (12.00-20.00); Blood Urea Nitrogen 45.4 mg/dL (9.0-27.0); Calcium 9.5 mg/dL (8.7-10.3); Carbon Dioxide 26.2 mmol/L (20.0-27.5); Globulin 2.1 g/dL (1.6-3.3); Non-African American GFR(CKD) 29.7 (60.0-200.0); Potassium 4.9 mmol/L (3.5-5.5); Total Bilirubin 0.2 mg/dL (0.30-1.20); Total Protein 6.3 g/dL (6.2-8.2)
--- NOTE | 2022-08-12 08:45 | MM ---
Reason for Exam: Screening (asymptomatic). Last screening mammogram was performed 12 month(s) ago. Patient History: Menarche at age 12. First Full-Term at age 25. Left ovary removed at age 40. Right ovary removed at age 40. Hysterectomy at age 40. Postmenopausal. 11/17/2021, Bilateral Reduction. 09/11/2019, Benign Core Biopsy on the left side. 09/11/2019, Benign Core Biopsy on the left side. Paternal grandmother had breast cancer. Maternal cousin had breast cancer, age 50. Risk Values: Karlie 5 year model risk: 2.2%. NCI Lifetime model risk: 10.3%. Prior Study Comparison: 08/20/2019 Left Diagnostic Mammogram, [facility]. 09/11/2019 Left Diagnostic Mammogram, [facility]. 08/06/2021 Bilateral Diagnostic Mammogram, [facility]. Tissue Density: There are scattered fibroglandular densities. Findings: Analyzed By CAD. A few scattered benign-appearing round calcifications throughout the right breast are redemonstrated. Benign-appearing right axillary lymph nodes are again seen. There is no distortion towards the right axilla on the MLO view only partially imaged on the CC view that warrants further workup there are 3 mammotome biopsy clips in the left breast redemonstrated. One is near well-defined oval mass which is stable. Some new skin thickening is felt present bilaterally. Correlate for history of heart failure. Overall Assessment: Incomplete: need additional imaging evaluation, BI-RAD 0 Management: Diagnostic Breast Ultrasound of the right breast. There is new Area of concern right breast. Targeted ultrasound right axilla. Clinical Correlate for CHF history. Electronically signed and approved by: Haroldo Elizalde M.D.
== END | disposition home or self-care (01) ==
LOC: RADMAMWWP 09:48
PROVIDERS: ATTEND Surgery
DX: Z12.31 Encounter for screening mammogram for malignant neoplasm of breast (principal); Z80.3 Family history of malignant neoplasm of breast; Z78.0 Asymptomatic menopausal state; Z98.890 Other specified postprocedural states
CPT/HCPCS: 77063; 77067; 80053

== ENCOUNTER → 2022-08-17 | Outpatient (CLI) | payer BC ==
--- NOTE | 2022-08-17 16:18 | USB ---
Reason for Exam: Additional evaluation requested from abnormal screening. Patient History: Menarche at age 12. First Full-Term at age 25. Left ovary removed at age 40. Right ovary removed at age 40. Hysterectomy at age 40. Postmenopausal. 11/17/2021, Bilateral Reduction. 09/11/2019, Benign Core Biopsy on the left side. 09/11/2019, Benign Core Biopsy on the left side. Paternal grandmother had breast cancer. Maternal cousin had breast cancer, age 50. Risk Values: Karlie 5 year model risk: 2.2%. NCI Lifetime model risk: 10.3%. Technique: Method: Targeted. Patient Position: Supine. Prior Study Comparison: 09/11/2019 Left Diagnostic Mammogram, [facility]. 08/06/2021 Bilateral Diagnostic Mammogram, [facility]. 08/11/2022 Bilateral MG 3D screening mammo w/cad, [facility]. Findings: The upper outer quadrant of the right breast, the axilla of the right breast and the retroareolar of the right breast were scanned. 1. There is a 0.6 x 0.2 x 0.4 centimeter hypoechoic area at the 9:00 position 8 cm the nipple. Posterior wall enhancement is not evident. Good through transmission is not evident. There is a suggestion there may be some mild shadowing. Consider biopsy. 2. There is a 1.4 x 0.9 x 1.6 cm heterogenous solid-appearing nodule within the right breast 9:00 position 5 cm from nipple. This should be considered suspicious. Biopsy is recommended. 3. There is a hyperechoic ill-defined area at the 10:00 position 16 cm from the nipple measuring 0.9 x 0.4 x 0.7 cm. This may correlate with the mammographic finding. Biopsy is recommended. 4. There is a 0.4 x 0.3 x 0.4 cm hypoechoic area which may has some shadowing. This is located at the 12:00 position 8 cm the nipple. This may be mildly suspicious, consider biopsy. 5. In the periareolar region of the right nipple there is a heterogenous ill-defined area. This lobular area measures approximately 3.4 x 1.2 cm. This area corresponds to an area of recent trauma and could be a hematoma/seroma. Monitoring of this area is recommended. Overall Assessment: Suspicious, BI-RAD 4 Management: Ultrasound Core Biopsy of the right breast. A clinical breast exam by your physician is recommended on an annual basis and results should be correlated with mammographic findings. Electronically signed and approved by: Rusty Sagastume DO
== END | disposition home or self-care (01) ==
LOC: RADUSWWP 14:51
PROVIDERS: ATTEND Surgery
DX: R92.8 Other abnormal and inconclusive findings on diagnostic imaging of breast (principal); Z80.3 Family history of malignant neoplasm of breast; Z78.0 Asymptomatic menopausal state; Z98.890 Other specified postprocedural states

== ENCOUNTER → 2022-08-25 | Day surgery (SDC) | payer BC ==
--- NOTE | 2022-08-31 08:48 | USB ---
Risk Values: Karlie 5 year model risk: 2.2%. NCI Lifetime model risk: 10.3%. Pathology Description: Location: 9 o'clock. Marker Left Behind. Needle Type: Mammotome Cores: 6 Gauge: 13 The procedure of ultrasound guided core biopsy was explained to the patient. Benefits, alternatives, and risks were discussed. An informed consent was then obtained. The patient's exam was reviewed. The patient has multiple lesions on ultrasound. A nodular focal asymmetry posterior upper-outer quadrant in the right breast was present even to the patient's reduction mammoplasty. On 3 images, there are numerous areas of noncalcified fat necrosis demonstrated. Most of the lesions on ultrasound likely corresponding to these regions of noncalcified fat necrosis. The more focal 1.7 cm oval heterogeneous mass 9:00 position 5 cm from the nipple is targeted for biopsy. The patient was placed in supine positioning for imaging and for the procedure. The overlying skin was prepped and draped in usual sterile fashion. Lidocaine was used as anesthetic into the skin and subcutaneous tissue up to area of concern in the right breast. Under ultrasound guidance, a 13-gauge vacuum-assisted mammotome Elite biopsy gun was used to obtain 6 core samples. Following this, a biopsy clip was left in lesion. The patient tolerated the procedure well without any immediate complication. The patient was kept in the radiology department for short stay after the procedure and then discharged home in stable condition. Postprocedure mammogram: The patient was transferred to mammography for physician ordered post procedure mammogram for clip placement verification. Postprocedure mammogram shows clip in the lateral position. No discrete mammographic mass in this region. Likely corresponds to an area of fat necrosis. Impression: Successful, uncomplicated ultrasound guided core biopsy of area of concern in the 9:00 right breast, suspected area of fat necrosis as there is no corresponding mass on mammogram, full pathology results to follow. Given the extensive changes compared to prior exam after the reduction mammoplasties, recommend 6 month follow-up bilateral diagnostic mammograms if benign results. Pathology Results: Result: Benign, Fat necrosis. RIGHT BREAST, 9:00, ULTRASOUND GUIDED NEEDLE CORE BIOPSY: Fat necrosis/scar with histiocytes and chronic inflammation. Negative for malignancy. Tissue Density: Right: There are scattered fibroglandular densities. Overall Assessment: Benign Assessment: MG diagnostic mammo RT wo CAD - Right: Probably benign, BI-RAD 3. Management: Diagnostic Mammogram of the right breast in 6 months. 6 months follow up bilateral mammogram for suspected extensive bilateral fat necrosis. Electronically signed and approved by: Christy Parnell M.D. Radiologist [facility]
== END ==
LOC: RADUSWWP 12:41
PROVIDERS: ATTEND Surgery
DX: R92.8 Other abnormal and inconclusive findings on diagnostic imaging of breast (principal)
CPT/HCPCS: 88305; 77065; 19083; A4648

== ENCOUNTER → 2022-09-01 | Outpatient (CLI) | payer BC ==
--- NOTE | 2022-09-01 09:28 | P.PN ---
Subjective Progress Note Date: 09/01/22 Principal diagnosis: fat necrossi/scar right breast Fibrocystic breast changes The patient had a bilateral mammogram on 08-11-22, this led to an ultrasound of the right breast. There was a new area of concern right breast. And targeted ultrasound of the right axilla was recommended. Clinical correlation for history of congestive heart failure. She does have a history of congestive heart failure. The patient has not noted any lesions of concern in either breast. She did have a bilateral breast reduction in November [address] Luna. She states the right breast took longer to heal and more was removed from the right breast. On and ultrasound of the right breast was performed. This revealed in the upper outer quadrant of the right breast in the area of the axilla in the retroareolar right breast being scanned. 1. There was a 0.6 x 0.4 cm area at the 9 o'clock position posterior wall enhancement was not evident. There was some suggestion of some mild shadowing and a biopsy was suggested. 2. 1.4 cm solid-appearing nodule in the right breast 9:00 this should be considered suspicious biopsy recommended 3. Hypoechoic ill-defined area at 10:00 0.9 cm biopsy recommended 4. In the periareolar region of the right breast a heterogeneous ill-defined area lobular approximately 3.4 cm corresponding to an area of recent trauma and could be a hematoma/seroma Patient presented on [id number] for ultrasound-guided core biopsy. The patient's exam was reviewed. The patient was noted multiple lesions on ultrasound. A nodular focal asymmetry posterior upper outer quadrant was present. On 3 images there were numerous areas of noncalcified fat necrosis demonstrated. Most of the lesions on ultrasound will felt to correspond 2 regions of noncalcified fat necrosis. Only one area was targeted for biopsy. This was a 1.7 cm heterogeneous area at 9:00. Biopsy was performed and given the extensive changes compared to prior exam after the reduction mammoplasty rather than doing multiple biopsies 6 month follow-up bilateral diagnostic mammograms were recommended. The pathology was felt to be benign concordant and was fat necrosis/scar with histiocytes and chronic inflammation. Karlie risk evaluation reveals five-year risk 2.2%, we have discussed chemoprevention and she has declined. Family history: 1.brother: tongue cancer 2. maternal aunt: bone cancer 3. paternal grandmother: breast cancer Hormonal History: menarche: 12 , breast fed: no, age at : 25 menopause: hysterectomy at 40, took both ovaries done for bleeding BCP: 1 1/2 year hormones: 6 months after hysterectomy Past Surgical Hysterectomy: 1. hysterectomy and bilateral oophrectomy 2. cholycystectomy 3. two heart stints 4. bilateral breast reduction Medical History: 1 CAD 2. diverticulosis 3. asthma 4. back pain 5. bilateral shoulder notching 6. Near the right foot surgery scheduled for October 2022 7. history of CHF/ last exacerbation 2019 Social History: smoke: 1/2 PPD 45 years; stopped three years ago alcohol: none drugs: none - Constitutional Constitutional: Denies chills, Denies fever - EENT Eyes: denies blurred vision, denies pain Ears: deny: decreased hearing, tinnitus Ears, nose, mouth and throat: Denies headache, Denies sore throat - Breasts Breasts: bilateral: as per HPI - Cardiovascular Comment: coronary artery diseases with stints which are not working at this time Cardiovascular: Reports high blood pressure - Respiratory Comment: smoker, asthma - Gastrointestinal Comment: diverticulitis, reflux Gastrointestinal: Denies abdominal pain, Denies diarrhea, Denies nausea, Denies vomiting - Genitourinary (Female) Genitourinary: Denies dysuria, Denies hematuria - Menstruation Menstruation: Reports post hysterectomy - Musculoskeletal Comment: back pain arthitis - Integumentary Comment: eczema - Neurological Comment: carpal tunnel Neurological: Reports numbness, Reports weakness - Psychiatric Psychiatric: Reports anxiety - Endocrine Comment: hypothyroid Endocrine: Reports fatigue, Denies weight change - Hematologic/Lymphatic Comment: none - Allergic/Immunologic Allergic/Immunologic: Reports seasonal allergies Objective - Constitutional General appearance: Present: cooperative - EENT Eyes: Present: EOMI ENT: Present: hearing grossly normal - Neck Neck: Present: normal ROM - Respiratory Respiratory: bilateral: CTA - Cardiovascular Rhythm: regular Heart sounds: normal: S1, S2 - Gastrointestinal General gastrointestinal: Present: soft - Integumentary Integumentary: Present: normal turgor - Musculoskeletal Musculoskeletal: Present: gait normal - Psychiatric Psychiatric: Present: A&O x's 3, appropriate affect, intact judgment & insight - Additional findings Additional findings: Breast Exam: BRA: 40B Inspection: Well-healed scars from bilateral reduction mammoplasty , bilateral grade 2 ptosis Palpation: Right breast: Multi-positional exam fibrocystic changes, no dominant masses or nodules of concern We axilla: No adenopathy of concern Left breast: Multiple positional exam fibrocystic changes no dominant masses or nodules of concern Left axilla: No adenopathy of concern Assessment and Plan Assessment: Impression: Fibrocystic breast changes Ultrasound core biopsy revealing fat necrosis consistent with post procedure changes from reduction mammoplasty Plan: Bilateral diagnostic mammogram in 6 months with a physician exam at that time Patient of A any questions or concerns CC: Dr. Lopez
== END ==
LOC: WWCWWP 08:37
PROVIDERS: ATTEND Surgery
DX: N60.11 Diffuse cystic mastopathy of right breast (principal); N60.12 Diffuse cystic mastopathy of left breast; Z88.1 Allergy status to other antibiotic agents; Z88.8 Allergy status to other drugs, medicaments and biological substances; Z87.891 Personal history of nicotine dependence; Z80.8 Family history of malignant neoplasm of other organs or systems; Z80.3 Family history of malignant neoplasm of breast

== ENCOUNTER → 2022-10-07 | Outpatient (CLI) | payer BC ==
[2022-10-07 10:13] LABS: ALT 25 U/L (8-44); AST 48 U/L (13-35); Chol/HDL Ratio 5.01 Ratio; LDL Cholesterol,Calculated 126.5 mg/dL (0.0-131.0)
== END | disposition home or self-care (01) ==
LOC: LABWHC1 07:00
PROVIDERS: ATTEND Internal Medicine Interventional Cardiology
DX: E78.2 Mixed hyperlipidemia (principal)
CPT/HCPCS: 36415; 80061; 84450; 84460

== ENCOUNTER → 2022-10-07 | Outpatient (CLI) | payer BC ==
--- NOTE | 2022-10-07 08:59 | XR ---
EXAMINATION TYPE: XR shoulder limited RT DATE OF EXAM: 10/07/2022 7:45 AM INDICATION: Patient age:Female; 62 years old; Reason for study: RT SHOULDER PAIN; COMPARISON: None TECHNIQUE: The right shoulder was examined in AP, internally rotated and scapular Y projections. . FINDINGS: No evidence of acute osseous pathology, joint dislocation, or soft tissue swelling. The remaining por tions of the visualized chest are unremarkable. IMPRESSION: No acute osseous pathology.
== END | disposition home or self-care (01) ==
LOC: LABWHC1 07:02
PROVIDERS: ATTEND Internal Medicine
DX: M25.511 Pain in right shoulder (principal)

== ENCOUNTER 2022-11-04 05:35 | Day surgery (SDC) | payer BC ==
[~2022-11-04 05:35] MED LIST changes: -LACTATED RINGERS 1,000 ML IV SCH; -LIDOCAINE 1% (10MG/ML) FOR IV START INTRADERMA ONE; -LIDOCAINE 1% INJ 10MG/ML (20 ML MDV) ONE; -MIDAZOLAM 2 MG/2 ML VIAL IV PRN; -ONDANSETRON 4 MG/2 ML VIAL IVP PRN; -PROPOFOL 10 MG/ML 20 ML VIAL IV ONE; +Pre Op ABX Message 1 EACH MISC MISCELLANE ONE
[2022-11-04] MEDS ORDERED: DEXAMETHASONE SOD PHOSPHATE 4 MG/ML 1 ML VIAL IV ONE (05:57)
[2022-11-04] MEDS ORDERED: ONDANSETRON 4 MG/2 ML VIAL IVP ONE (05:57)
[2022-11-04] MEDS ORDERED: HYDROmorphone 0.5 MG/0.5 ML SYRINGE IVP PRN (05:57)
[2022-11-04] MEDS ORDERED: LACTATED RINGERS 1,000 ML IV SCH (05:57)
[2022-11-04] MEDS ORDERED: MIDAZOLAM 2 MG/2 ML VIAL IV PRN (05:57)
[2022-11-04] MEDS ORDERED: LIDOCAINE 1% (10MG/ML) FOR IV START INTRADERMA PRN (05:57)
[2022-11-04] MEDS ORDERED: fentaNYL (PF) 50 MCG/1 ML VIAL IVP ONE (07:07)
[2022-11-04] MEDS ORDERED: MIDAZOLAM 2 MG/2 ML VIAL IVP ONE (07:07)
[2022-11-04] MEDS ORDERED: ROPIVACAINE 5 MG/ML 30 ML VIAL ONE (07:29)
[2022-11-04] MEDS ORDERED: SODIUM CHLORIDE 0.9% (PF) 10 ML VIAL ONE (07:29)
[2022-11-04] MEDS ORDERED: ePHEDrine 50 MG/ML 1 ML VIAL ONE (07:29)
[2022-11-04] MEDS ORDERED: PROPOFOL 10 MG/ML 20 ML VIAL IV ONE (07:29)
[2022-11-04] MEDS ORDERED: SODIUM CHLORIDE 0.9% 50 ML with ceFAZolin 2 GM IV ONE ×2 (07:29)
[2022-11-04] MEDS ORDERED: LIDOCAINE 4% LTA KIT (4 ML) TOPICAL ONE (07:29)
[2022-11-04] MEDS ORDERED: MIDAZOLAM 2 MG/2 ML VIAL ONE (07:29)
[2022-11-04] MEDS ORDERED: LIDOCAINE 2% INJ 20 MG/ML (2 ML VIAL) ONE (07:29)
[2022-11-04] MEDS ORDERED: fentaNYL (PF) 50 MCG/ML 2 ML AMP ONE (07:29)
[2022-11-04] MEDS ORDERED: SUCCINYLCHOLINE CHLORIDE 200 MG/10 ML VIAL IV ONE (07:29)
[2022-11-04] MEDS ORDERED: BUPIVACAINE (PF) 0.25% 30 ML VIAL SQ ONE (07:55)
[2022-11-04 09:04] VITALS: TEMP 97
--- NOTE | 2022-11-04 09:19 | P.OP ---
Date of Procedure: 11/04/22 Preoperative Diagnosis: Hallux valgus right foot Postoperative Diagnosis: same Procedure(s) Performed: Lapidus bunionectomy right foot Implants: Lapiplasty plates and screws Anesthesia: ZAID Surgeon: aGgandeep Cao Estimated Blood Loss (ml): 2 Pathology: none sent Condition: stable Disposition: PACU Description of Procedure: Prior to the patient being brought to the operating room, anesthesia administered nerve block on the right lower extremity. Then the patient was brought into the operative room and placed on table in the supine position. Timeout was taken to confirm correct patient identifiers, correct procedure, and correct site of surgery. When all staff in the room were in agreement with the timeout the patient was induced placed under general anesthesia. A well-padded tourniquet was placed on the ankle. The foot was then prepped and draped in usual manner. The foot was exsanguinated and the tourniquet inflated 250 mmHg. Attention was directed over the first one space at the level the metatarsophalangeal joint. Fluoroscopy was used to identify the lateral aspect of the first metatarsal phalangeal joint. A small incision was made and bluntly dissected lateral to the joint capsule. A lateral capsulotomy proper was performed and the lateral sesamoid collateral ligament transected to complete the lateral release. Then attention was directed to the dorsal aspect of the foot over the first tarsometatarsal joint. A linear incision was made medial to the extensor hallucis longus tendon with the center of the incision over the first tarsometatarsal joint. The incision was deepened down to the subcutaneous tissue careful to identify, avoid, and retract any neurovascular structures and cauterize any bleeding vessels. Blunt dissection was then carried down to the joint capsule which was incised medial to the extensor hallucis longus tendon area and subperiosteal dissection was performed to reflect the soft tissue away from the joint. An osteotome was used to free the soft tissue from around the joint surfaces to help mobilize the frontal plane correction. A guidewire and placed through the base of the first metatarsal from medial to lateral. This is was used as a joystick for the frontal plane rotation correction. The small fulcrum was placed at the base of the first metatarsal, the joint seeker was also placed at the first tarsometatarsal joint as far lateral as possible. And then the reduction clamp was applied around the first metatarsal and lateral to the second metatarsal. While holding the frontal plane correction the reduction clamp was reduced to close the intermetatarsal angle. Once the amount of correction was acceptable under fluoroscopy, a wire was placed through the reduction clamp to lock the correction in place. The cutting guide was then placed over the joint seeker then held in place with 2 straight pins and then one angled pin so it did not slide dorsally. The bone cuts were then made through the cutting jig. Cutting jig was removed, leaving the [address], as was the fulcrum. The compression/distraction device was then placed over the remaining wires and then opened to allow access to the cut surfaces of bone. Both cut surfaces were removed fully with no remaining pieces. The wound was then irrigated thoroughly with antibiotic saline. Then a 2.0 mm drill bit was used to aggressively fenestrate the conjoining surfaces of the arthrodesis site. The fulcrum was reinserted at the lateral base of the first metatarsal . Then the distraction device was reversed for compression and while holding the great toe dorsiflexed the arthrodesis site was compressed fully. Fluoroscopy was used to check the alignment which showed full compression at the arthrodesis site with maintained correction of the intermetatarsal angle and anatomic alignment of the sesamoids. Threaded olive wire was then inserted across the arthrodesis site for temporary fixation. The medial plate was applied first it was aligned under fluoroscopy and then temporarily fixated. The 2 screw holes closest to the arthrodesis site were filled with the compression/locking screws until they were fully seated. The outer 2 holes were done with straight locking screws. The dorsal straight plate was then positioned under fluoroscopy until correct and then temporarily fixated. The 2 holes closest to the arthrodesis site were filled with the compression/locking screw and the outer holes with the straight locking screws. All extraneous instrumentation was removed and then a final fluoroscopic imaging showed full correction of the intermetatarsal angle, proper placement of hardware, no gapping at the arthrodesis, and the sesamoids anatomically aligned. There was the presence of a dorsomedial osteophyte on the first metatarsal head. The distal aspect of the dorsal incision was extended over the joint. It was deepened down to the subcutaneous tissue careful to identify, avoid, and retract any neurovascular structures and cauterize any bleeding vessels. Dissection was then carried down to level the joint capsule. Dorsal medial incision was made to the joint capsule, and the soft tissue reflected from the first metatarsal head medially and dorsally. A Esau was used to remove the dorsomedial osteophyte. A rasp was then used to smooth all roughened edges of bone. All wounds were thoroughly irrigated with antibiotic saline. Capsular closure was done with 2-0 Vicryl. All incisions were closed subcutaneously with 4-0 Monocryl. The dorsal incision was closed with 3-0 Stratafix in a running subcuticular manner for skin. Dermal glue was applied to all the incisions and allowed to dry. Steri-Strips are then placed across incision and covered with an Arthrex jumpstart dressing. A bulky dry dressing was applied to the foot. The tourniquet was released and capillary refill return to all digits on the foot. The patient then placed in a well-padded, well molded posterior mold/sugar tong splint. The foot was held in neutral position as it dried. Once dry, the patient was reversed from general anesthesia and taken recovery with vital signs stable.
[2022-11-04 09:29] VITALS: RESP 16
[2022-11-04 09:51] VITALS: BP 140/88; PULSE 85
--- NOTE | 2022-11-04 12:56 | P.ANPRN ---
Procedure Note - Anesthesia - Nerve Block Performed Right Adductor Canal Time Out Performed: Yes (07:) Date of Procedure: 11/04/22 Procedure Start Time: Procedure Stop Time: : Location of Patient: PreOp Indication: Acute Post-Operative Pain, Requested by Surgeon (Dr Cao) Sedation Type: Sedate with meaningful contact maintained Preparation: Sterile Prep Position: Supine Catheter: None Needle Types: Pajunk Needle Gauge: 21 Ultrasound used to visualize needle placement: Yes Ultrasound used to observe medication spread: Yes Injectate: 0.5% Ropivacaine (see comment for volume) (15cc +5cc PF Normal saline) Blood Aspirated: No Pain Paresthesia on Injection Noted: No Resistance on Injection: Normal Image Stored and Saved: Yes Events: Uneventful and Well Tolerated
--- NOTE | 2022-11-04 12:57 | P.ANPRN ---
Procedure Note - Anesthesia - Nerve Block Performed Right Popliteal Time Out Performed: Yes Date of Procedure: 11/04/22 Procedure Start Time: 07:11 Procedure Stop Time: 07:15 Location of Patient: PreOp Indication: Acute Post-Operative Pain, Requested by Surgeon (Dr Cao) Sedation Type: Sedate with meaningful contact maintained Preparation: Sterile Prep Position: Left Lateral Catheter: None Needle Types: Pajunk Needle Gauge: 21 Ultrasound used to visualize needle placement: Yes Ultrasound used to observe medication spread: Yes Injectate: 0.5% Ropivacaine (see comment for volume) (15cc +5cc PF Normal saline) Blood Aspirated: No Pain Paresthesia on Injection Noted: No Resistance on Injection: Normal Image Stored and Saved: Yes Events: Uneventful and Well Tolerated
== END 2022-11-04 10:05 | disposition home or self-care (01) ==
LOC: OR 05:35
PROVIDERS: ATTEND Podiatrist
DX: M20.11 Hallux valgus (acquired), right foot (principal); I11.9 Hypertensive heart disease without heart failure; E78.5 Hyperlipidemia, unspecified; Z79.899 Other long term (current) drug therapy
CPT/HCPCS: 28297; 64447; 64445; 76942; C1713; J2250; J0330; J1100; J0690; J2405; J3010 ×2; J2795; J2704; J2001

== ENCOUNTER → 2023-02-06 | Outpatient (CLI) | payer BC ==
--- NOTE | 2023-02-06 16:13 | US ---
EXAMINATION TYPE: US kidneys/renal and bladder DATE OF EXAM: 02/06/2023 COMPARISON: CT abdomen November 16, 2019 and the older study 2018 CLINICAL HISTORY: CKD stage 3B N18.32. CKD 3 EXAM MEASUREMENTS: Right Kidney: 9.4 x 4.7 x 3.6 cm Left Kidney: 8.1 x 4.5 x 4.1 cm Right Kidney: No hydronephrosis or masses seen Left Kidney: No hydronephrosis or masses seen Bladder: anechoic Bilateral Jets seen: no Some increased cortical echogenicity bilaterally. No concerning masses seen on images 8. No hydroneph rosis is present. The urinary bladder is not greatly distended. IMPRESSION: No hydronephrosis is seen bilaterally.
== END | disposition home or self-care (01) ==
LOC: RADUSWWP 14:51
PROVIDERS: ATTEND Internal Medicine
DX: N18.32 Chronic kidney disease, stage 3b (principal)
CPT/HCPCS: 76770

== ENCOUNTER → 2023-03-25 | Outpatient (CLI) | payer BC ==
[2023-03-25 13:31] LABS: Appearance,Urine Clear (Clear); Bilirubin,Urine Negative (Negative); Blood,Urine Negative (Negative); Color,Urine Yellow (Yellow); Ketones,Urine Negative (Negative); Nitrite,Urine Negative (Negative); Specific Gravity,Urine 1.011 (1.001-1.030); Urobilinogen,Urine 0.2 (0.2,1.0)
[2023-03-25 13:37] LABS: Bacteria,Urine None Seen /HPF (None Seen)
[2023-03-25 13:43] LABS: Basophils # (A) 0.07 X 10*3/uL (0.00-0.10); Basophils % (A) 1.3 %; Eosinophils # (A) 0.14 X 10*3/uL (0.04-0.35); Eosinophils % (A) 2.5 %; HCT 40.1 % (37.2-46.3); HGB 12.7 g/dL (12.0-15.0); Immature Grans, Automated 0.2 %; Lymphocytes % (A) 30.4 %; MCH 28.3 pg (27.0-32.0); MCHC 31.7 g/dL (32.0-37.0); MCV 89.5 fL (80.0-97.0); Mean Platelet Volume 10.7 fL (9.5-12.2); Monocytes # (A) 0.55 X 10*3/uL (0.20-1.00); Monocytes % (A) 9.8 %; NRBC Per 100 WBC 0 /100 WBCS (0.0-0.0); Neutrophils # (A) 3.12 X 10*3/uL (1.80-7.70); Neutrophils % (A) 55.8 %; Platelet Count 318 X 10*3/uL (140-440); RBC 4.48 X 10*6/uL (4.10-5.20); RDW 14.5 % (11.5-14.5); WBC 5.59 X 10*3/uL (4.50-10.00)
[2023-03-25 13:59] LABS: % Iron Saturation 15.23 (12.00-45.00); African American GFR (CKD) 34.1 (60.0-200.0); Albumin 4.6 g/dL (3.8-4.9); Albumin/Globulin Ratio 2.02 (1.60-3.17); BUN/Creat Ratio 14.48 Ratio (12.00-20.00); Blood Urea Nitrogen 26.2 mg/dL (9.0-27.0); Calcium 10.2 mg/dL (8.7-10.3); Carbon Dioxide 27.2 mmol/L (20.0-27.5); Globulin 2.3 g/dL (1.6-3.3); Magnesium 2.1 mg/dL (1.5-2.4); Non-African American GFR(CKD) 29.4 (60.0-200.0); Phosphorus 3.6 mg/dL (2.4-5.1); Potassium 4.5 mmol/L (3.5-5.5); Total Bilirubin 0.4 mg/dL (0.30-1.20); Total Protein 6.8 g/dL (6.2-8.2)
== END | disposition home or self-care (01) ==
LOC: LABWHC1 08:05
PROVIDERS: ATTEND Internal Medicine Interventional Cardiology
DX: E55.9 Vitamin D deficiency, unspecified (principal); E21.3 Hyperparathyroidism, unspecified; N18.32 Chronic kidney disease, stage 3b; D63.1 Anemia in chronic kidney disease
CPT/HCPCS: 36415; 80053; 81001; 82306; 83540; 83550; 83735; 83970; 84100; 85025

== ENCOUNTER → 2023-04-03 | Outpatient (CLI) | payer BC ==
--- NOTE | 2023-04-03 09:03 | MM ---
Reason for Exam: Follow-up at short interval from prior study. Last screening mammogram was performed 8 month(s) ago. Patient History: Menarche at age 12. First Full-Term at age 25. Left ovary removed at age 40. Right ovary removed at age 40. Hysterectomy at age 40. Postmenopausal. 08/25/2022, Benign US biopsy breast VAD RT on the right side. 11/17/2021, Bilateral Reduction. 09/11/2019, Benign Core Biopsy on the left side. 09/11/2019, Benign Core Biopsy on the left side. Paternal grandmother had breast cancer. Maternal cousin had breast cancer, age 50. Risk Values: Karlie 5 year model risk: 2.3%. NCI Lifetime model risk: 10.0%. Prior Study Comparison: 10/30/2015 Bilateral Screening Mammogram, [facility]. 08/05/2019 Bilateral Screening Mammogram, [facility] 08/20/2019 Left Diagnostic Mammogram, [facility]. 08/20/2019 Left Diagnostic Ultrasound, [facility]. 09/11/2019 Left Diagnostic Mammogram, [facility]. 08/06/2021 Bilateral Diagnostic Mammogram, [facility]. 08/06/2021 Left Diagnostic Ultrasound, [facility]. 08/11/2022 Bilateral MG 3D screening mammo w/cad, [facility]. 08/17/2022 Right US breast workup limited RT, [facility]. 08/25/2022 Right MG diagnostic mammo RT wo CAD, [facility]. Tissue Density: There are scattered fibroglandular densities. Findings: Analyzed By CAD. One microclip on the right and 2 on the left from prior biopsies. The right sided biopsy clip being from the more recent 08/25/2022 biopsy that revealed fat necrosis. Postsurgical change reduction mammoplasties. Nodularity on the right is becoming more defined and on 3 images, we note extensive fat necrosis especially in her lower aspects. Increasing density central left cc view, also likely evolving fat necrosis. Short interval follow-up recommended. If any continued suspicious changes developed, further biopsies may be indicated. Overall Assessment: Probably benign, BI-RAD 3 Management: Diagnostic Mammogram of both breasts in 6 months. For suspected extensive postsurgical changes after reduction mammoplasty with suspected areas of evolving fat necrosis. Results were given to the patient verbally at the time of exam. Patient should continue monthly self-breast exams. A clinical breast exam by your physician is recommended on an annual basis. This exam should not preclude additional follow-up of suspicious palpable abnormalities. Note on Karlie scores and lifetime risk: 1. A Karlie score greater than 3% is considered moderate risk. If this is the case, consider specialist referral to assess eligibility for a risk reducing agent. 2. If overall lifetime risk for the development of breast cancer is 20% or higher, the patient may qualify for future screening with alternating mammogram and breast MRI. Electronically signed and approved by: Christy Parnell M.D. Radiologist
== END | disposition home or self-care (01) ==
LOC: RADMAMWWP 08:13
PROVIDERS: ATTEND Surgery
DX: R92.8 Other abnormal and inconclusive findings on diagnostic imaging of breast (principal); Z78.0 Asymptomatic menopausal state; Z80.3 Family history of malignant neoplasm of breast; Z90.721 Acquired absence of ovaries, unilateral
CPT/HCPCS: 77062; 77066

== ENCOUNTER → 2023-04-07 | Outpatient (CLI) | payer BC ==
[2023-04-07 08:38] VITALS: BP 125/77; PULSE 84; RESP 18; TEMP 97.4
--- NOTE | 2023-04-07 08:56 | P.PN ---
Subjective Progress Note Date: 04/07/23 Principal diagnosis: Family necrosis/scar right breast Fibrocystic breast changes fat necrossi/scar right breast Fibrocystic breast changes The patient is a 63-year-old white female being followed for fibrocystic breast changes. She underwent a bilateral breast reduction in November [address] Luna. [place] [address] which revealed probable postoperative changes in both breasts and 6 month repeat mammogram was recommended. She underwent an ultrasound-guided core biopsy on [id number] of the right breast and pathology revealed fat necrosis/scar. She is complaining of some right chest wall nodularity which noted approximately 2 months ago, otherwise she is not complaining of any lumps masses or nodules in her breasts. She has a persistent most likely sebaceous cyst under the left arm which is causing some difficulty with drainage. The patient has lost approximately 40 pounds since her last visit. This was intentional. Karlie risk evaluation reveals five-year risk 2.3%, we have discussed chemoprevention and she has declined. Family history: 1.brother: tongue cancer 2. maternal aunt: bone cancer 3. paternal grandmother: breast cancer Hormonal History: menarche: 12 , breast fed: no, age at : 25 menopause: hysterectomy at 40, took both ovaries done for bleeding BCP: 1 1/2 year hormones: 6 months after hysterectomy Past Surgical Hysterectomy: 1. hysterectomy and bilateral oophrectomy 2. cholycystectomy 3. two heart stints 4. bilateral breast reduction Medical History: 1 CAD 2. diverticulosis 3. asthma 4. back pain 5. bilateral shoulder notching 6. Near the right foot surgery scheduled for October 2022 7. history of CHF/ last exacerbation 2019 Social History: smoke: 1/2 PPD 45 years; stopped three years ago alcohol: none drugs: none - Constitutional Constitutional: Denies chills, Denies fever - EENT Eyes: denies blurred vision, denies pain Ears: deny: decreased hearing, tinnitus Ears, nose, mouth and throat: Denies headache, Denies sore throat - Breasts Breasts: bilateral: as per HPI - Cardiovascular Comment: coronary artery diseases with stints which are not working at this time Cardiovascular: Reports high blood pressure - Respiratory Comment: smoker, asthma - Gastrointestinal Comment: diverticulitis, reflux Gastrointestinal: Denies abdominal pain, Denies diarrhea, Denies nausea, Denies vomiting - Genitourinary (Female) Genitourinary: Denies dysuria, Denies hematuria - Menstruation Menstruation: Reports post hysterectomy - Musculoskeletal Comment: back pain arthitis - Integumentary Comment: eczema - Neurological Comment: carpal tunnel Neurological: Reports numbness, Reports weakness - Psychiatric Psychiatric: Reports anxiety - Endocrine Comment: hypothyroid Endocrine: Reports fatigue, Denies weight change - Hematologic/Lymphatic Comment: none - Allergic/Immunologic Allergic/Immunologic: Reports seasonal allergies Objective - Vital Signs Vital signs: Vital Signs Temp 97.4 F L 04/07/23 08:34 Pulse 84 04/07/23 08:34 Resp 18 04/07/23 08:34 BP 125/77 04/07/23 08:34 Pulse Ox 99 04/07/23 08:34 FiO2 Intake & Output 04/06/23 04/07/23 04/07/23 18:59 06:59 18:59 Weight 60.781 kg - Constitutional General appearance: Present: cooperative - EENT Eyes: Present: EOMI ENT: Present: hearing grossly normal - Neck Neck: Present: normal ROM - Respiratory Respiratory: bilateral: CTA - Cardiovascular Rhythm: regular Heart sounds: normal: S1, S2 - Gastrointestinal General gastrointestinal: Present: soft - Integumentary Integumentary: Present: normal turgor - Musculoskeletal Musculoskeletal: Present: gait normal - Psychiatric Psychiatric: Present: A&O x's 3, appropriate affect, intact judgment & insight - Additional findings Additional findings: Breast Exam: BRA: 40B Inspection: Well-healed scars from bilateral reduction mammoplasty , bilateral grade 2 ptosis Palpation: Right breast: Multi-positional exam fibrocystic changes, no dominant masses or nodules of concern, nodule noted right chest wall approximately 1 cm in size at about the 11 o'clock position We axilla: No adenopathy of concern Left breast: Multiple positional exam fibrocystic changes no dominant masses or nodules of concern Left axilla: No adenopathy of concern; nodule most likely sebaceous cyst with chronic drainage Assessment and Plan Assessment: Impression: Fibrocystic breast changes Bilateral mammogram [phone] probably benign BIRADS 3 repeat bilateral mammogram in 6 months bilateral changes felt to be related to postsurgical changes Plan: Bilateral diagnostic mammogram in 6 months with a physician exam at that time Follow up sooner if patient has any questions or concerns Ultrasound area of concern right chest wall; if this is identified on ultrasound and ultrasound-guided core biopsy is recommended, if it cannot be seen on ultrasound and FNA of palpable abnormality was recommended, depending on results of the above resection in the operating room would be recommended Removal of subcutaneous nodule left axilla in the operating room Risk and benefits of the procedure discussed with the patient. The patient understands and wishes to proceed. Prior to removal of the lesion under the arm we will further evaluate the nodularity on the right chest wall CC: Dr. Lopez
== END ==
LOC: WWCWWP 08:30
PROVIDERS: ATTEND Surgery
DX: N60.12 Diffuse cystic mastopathy of left breast (principal); N60.11 Diffuse cystic mastopathy of right breast; F17.210 Nicotine dependence, cigarettes, uncomplicated; I25.10 Atherosclerotic heart disease of native coronary artery without angina pectoris; I50.9 Heart failure, unspecified; J45.909 Unspecified asthma, uncomplicated; Z80.3 Family history of malignant neoplasm of breast; Z88.8 Allergy status to other drugs, medicaments and biological substances; Z88.1 Allergy status to other antibiotic agents

== ENCOUNTER → 2023-04-07 | Outpatient (CLI) | payer BC ==
--- NOTE | 2023-04-07 09:47 | USB ---
Reason for Exam: Clinical finding. Patient History: Menarche at age 12. First Full-Term at age 25. Left ovary removed at age 40. Right ovary removed at age 40. Hysterectomy at age 40. Postmenopausal. 08/25/2022, Benign US biopsy breast VAD RT on the right side. 11/17/2021, Bilateral Reduction. 09/11/2019, Benign Core Biopsy on the left side. 09/11/2019, Benign Core Biopsy on the left side. Paternal grandmother had breast cancer. Maternal cousin had breast cancer, age 50. Risk Values: Karlie 5 year model risk: 2.3%. NCI Lifetime model risk: 10.0%. Technique: Method: Targeted. Prior Study Comparison: 08/11/2022 Bilateral MG 3D screening mammo w/cad, [facility]. 08/25/2022 Right MG diagnostic mammo RT wo CAD, [facility]. 04/03/2023 Bilateral MG 3D diag mammo w/cad AN, [facility]. Findings: The upper section of the breast of the right breast, the axilla of the right breast and the retroareolar of the right breast were scanned. Targeted ultrasound shows 8 x 9 x 11 mm round hypoechoic lesion at 12:00 position 11 cm distance from nipple corresponding to new palpable abnormality. There is persistent ill-defined large area behind the right nipple could reflect nonsimple focal fluid collection or debris-filled dilated duct. This is unchanged grossly from prior ultrasound study. Overall Assessment: Suspicious, BI-RAD 4 Management: Ultrasound Core Biopsy of the right breast. Tissue sampling of the new 12:00 lesion corresponding to palpable abnormality right breast. Results were given to the patient verbally at the time of exam. Electronically signed and approved by: Haroldo Elizalde M.D.
== END | disposition home or self-care (01) ==
LOC: RADUSWWP 08:58
PROVIDERS: ATTEND Surgery
DX: N63.10 Unspecified lump in the right breast, unspecified quadrant (principal); Z78.0 Asymptomatic menopausal state; Z80.3 Family history of malignant neoplasm of breast

== ENCOUNTER → 2023-04-20 | Day surgery (SDC) | payer BC ==
--- NOTE | 2023-04-27 09:01 | MM ---
Reason for Exam: Post Procedure Mammogram. Last screening mammogram was performed less than 1 month ago. Patient History: Menarche at age 12. First Full-Term at age 25. Left ovary removed at age 40. Right ovary removed at age 40. Hysterectomy at age 40. Postmenopausal. 08/25/2022, Benign US biopsy breast VAD RT on the right side. 11/17/2021, Bilateral Reduction. 09/11/2019, Benign Core Biopsy on the left side. 09/11/2019, Benign Core Biopsy on the left side. Paternal grandmother had breast cancer. Maternal cousin had breast cancer, age 50. Risk Values: Karlie 5 year model risk: 2.3%. NCI Lifetime model risk: 10.0%. Prior Study Comparison: 08/11/2022 Bilateral MG 3D screening mammo w/cad, [facility]. 08/25/2022 Right MG diagnostic mammo RT wo CAD, [facility]. 04/03/2023 Bilateral MG 3D diag mammo w/cad [facility], [facility]. Tissue Density: Right: There are scattered fibroglandular densities. Pathology Description: Location: 12 o'clock. Marker Left Behind. Needle Type: Mammotome Cores: 5 Gauge: 13 The procedure of ultrasound guided core biopsy was explained to the patient. Benefits, alternatives, and risks were discussed. An informed consent was then obtained. The patient was placed in supine positioning for imaging and for the procedure. The overlying skin was prepped and draped in usual sterile fashion. Lidocaine was used as anesthetic into the skin and subcutaneous tissue up to area of concern in the 12:00 right breast. Under ultrasound guidance, a 13-gauge vacuum-assisted Mammotome Elite biopsy gun device was used to obtain 5 core samples. Following this, a [employer] TopHat clip was left in lesion. The patient tolerated the procedure well without any immediate complication. The patient was kept in the radiology department for short stay after the procedure and then discharged home in stable condition. Postprocedure mammogram: The patient was transferred to mammography for physician ordered post procedure mammogram for clip placement verification. Post procedure mammogram shows clip at the site of palpable focal asymmetry 12:00 position posteriorly. IMPRESSION: Successful, uncomplicated ultrasound guided core biopsy of area of 12:00 palpable focal asymmetry posterior right breast. Full pathology results to follow. Pathology Results: Result: Benign, Fat necrosis. RIGHT BREAST, 12:00, ULTRASOUND GUIDED CORE BIOPSY: Nodular fat necrosis with fibrous scar and chronic inflammation. Current case negative for diagnostic in situ or invasive malignancy. Overall Assessment: Benign Assessment: MG diagnostic mammo RT wo CAD - Right: Benign, BI-RAD 2. Management: Diagnostic Mammogram of the right breast in 6 months. Electronically signed and approved by: Christy Parnell M.D. Radiologist
== END ==
LOC: RADUSWWP 12:51
PROVIDERS: ATTEND Surgery
DX: N64.1 Fat necrosis of breast (principal); N61.0 Mastitis without abscess
CPT/HCPCS: 88305; 77065; 19083; A4648

== ENCOUNTER → 2023-04-26 | Outpatient (CLI) | payer BC ==
--- NOTE | 2023-04-26 10:24 | P.PN ---
Subjective Progress Note Date: 04/26/23 Principal diagnosis: Patient status post ultrasound-guided core biopsy of right breast 12:00 lesion on 6822. Altagracia is a 63-year-old white female being followed for fibrocystic breast changes. She underwent a bilateral breast reduction in November [address] Luna. [place]'s [place] [address] which revealed probable postop changes in both breast and 6 month repeat mammogram was recommended. She underwent ultrasound-guided core biopsy of the right breast on 6822 which revealed fat necrosis/scar The most recent core biopsy was done secondary to a complaint by the patient of some right chest wall nodularity. The patient had lost approximately 40 pounds and noted to nodularity on the right chest wall. Additionally she has a persistent sebaceous cyst under her left arm. core biopsy 04-20-23 necrosis/scar right breast Fibrocystic breast change Karlie risk evaluation reveals five-year risk 2.3%, we have discussed chemoprevention and she has declined. Family history: 1.brother: tongue cancer 2. maternal aunt: bone cancer 3. paternal grandmother: breast cancer Hormonal History: menarche: 12 , breast fed: no, age at : 25 menopause: hysterectomy at 40, took both ovaries done for bleeding BCP: 1 1/2 year hormones: 6 months after hysterectomy Past Surgical Hysterectomy: 1. hysterectomy and bilateral oophrectomy 2. cholycystectomy 3. two heart stints 4. bilateral breast reduction Medical History: 1 CAD 2. diverticulosis 3. asthma 4. back pain 5. bilateral shoulder notching 6. Near the right foot surgery scheduled for October 2022 7. history of CHF/ last exacerbation 2019 Social History: smoke: 1/2 PPD 45 years; stopped three years ago alcohol: none drugs: none - Constitutional Constitutional: Denies chills, Denies fever - EENT Eyes: denies blurred vision, denies pain Ears: deny: decreased hearing, tinnitus Ears, nose, mouth and throat: Denies headache, Denies sore throat - Breasts Breasts: bilateral: as per HPI - Cardiovascular Comment: coronary artery diseases with stints which are not working at this time Cardiovascular: Reports high blood pressure - Respiratory Comment: smoker, asthma - Gastrointestinal Comment: diverticulitis, reflux Gastrointestinal: Denies abdominal pain, Denies diarrhea, Denies nausea, Denies vomiting - Genitourinary (Female) Genitourinary: Denies dysuria, Denies hematuria - Menstruation Menstruation: Reports post hysterectomy - Musculoskeletal Comment: back pain arthitis - Integumentary Comment: eczema - Neurological Comment: carpal tunnel Neurological: Reports numbness, Reports weakness - Psychiatric Psychiatric: Reports anxiety - Endocrine Comment: hypothyroid Endocrine: Reports fatigue, Denies weight change - Hematologic/Lymphatic Comment: none - Allergic/Immunologic Allergic/Immunologic: Reports seasonal allergies Objective - Vital Signs Vital signs: Vital Signs Temp 97.4 F L 04/07/23 08:34 Pulse 84 04/07/23 08:34 Resp 18 04/07/23 08:34 BP 125/77 04/07/23 08:34 Pulse Ox 99 04/07/23 08:34 FiO2 Intake & Output 04/06/23 04/07/23 04/07/23 18:59 06:59 18:59 Weight 60.781 kg Objective - Constitutional General appearance: Present: cooperative - EENT Eyes: Present: EOMI ENT: Present: hearing grossly normal - Neck Neck: Present: normal ROM - Respiratory Respiratory: bilateral: CTA - Cardiovascular Heart sounds: normal: S1, S2 - Integumentary Integumentary: Present: normal turgor - Musculoskeletal Musculoskeletal: Present: gait normal - Psychiatric Psychiatric: Present: A&O x's 3, appropriate affect, intact judgment & insight - Additional findings Additional findings: Breast Exam: BRA: 40B Inspection: Well-healed scars from bilateral reduction mammoplasty , bilateral grade 2 ptosis Palpation: Right breast: Multi-positional exam fibrocystic changes, no dominant masses or nodules of concern, nodule noted right chest wall approximately 1 cm in size at about the 11 o'clock position; the nodularity has decreased from prior exam, she underwent a core biopsy of this site which was benign scar tissue, no infection or hematoma We axilla: No adenopathy of concern Left breast: Multiple positional exam fibrocystic changes no dominant masses or nodules of concern Left axilla: No adenopathy of concern; nodule most likely sebaceous cyst with chronic drainage Assessment and Plan Assessment: Impression: Fibrocystic breast changes Bilateral mammogram [id number] probably benign BIRADS 3 repeat bilateral mammogram in 6 months bilateral changes felt to be related to postsurgical changes Ultrasound core biopsy consistent with fat necrosis of the right breast Plan: Bilateral diagnostic mammogram in 6 months with a physician exam at that time Ultrasound of right breast/chest wall area where she underwent the core biopsy in 6 months Follow up sooner if patient has any questions or concerns Removal of subcutaneous nodule left axilla in the operating room Appointment June 09, 2023 Risk and benefits of the procedure discussed with the patient. The patient understands and wishes to proceed. Prior to removal of the lesion under the arm we will further evaluate the nodularity on the right chest wall CC: Dr. Lopez
[2023-04-26 10:48] VITALS: BP 152/75; PULSE 66; RESP 17; TEMP 97.5
== END ==
LOC: WWCWWP 10:00
PROVIDERS: ATTEND Surgery
DX: N60.11 Diffuse cystic mastopathy of right breast (principal); I25.10 Atherosclerotic heart disease of native coronary artery without angina pectoris; K57.90 Diverticulosis of intestine, part unspecified, without perforation or abscess without bleeding; N60.81 Other benign mammary dysplasias of right breast; L72.3 Sebaceous cyst; J45.909 Unspecified asthma, uncomplicated; Z86.79 Personal history of other diseases of the circulatory system; Z90.13 Acquired absence of bilateral breasts and nipples; Z80.3 Family history of malignant neoplasm of breast; Z88.1 Allergy status to other antibiotic agents; Z88.8 Allergy status to other drugs, medicaments and biological substances; Z79.51 Long term (current) use of inhaled steroids; Z87.891 Personal history of nicotine dependence

== ENCOUNTER → 2023-06-09 | Outpatient (CLI) | payer BC ==
[2023-06-09 09:12] VITALS: BP 122/66; PULSE 60; RESP 18
--- NOTE | 2023-06-09 09:48 | P.PN ---
Subjective Progress Note Date: 06/09/23 Patient status post ultrasound-guided core biopsy of right breast 12:00 lesion on 68. Altagracia is a 63-year-old white female being followed for fibrocystic breast changes. She underwent a bilateral breast reduction in November [address] Lnua. [place] [address] which revealed probable postop changes in both breast and 6 month repeat mammogram was recommended. She underwent ultrasound-guided core biopsy of the right breast on 6822 which revealed fat necrosis/scar The most recent core biopsy was done secondary to a complaint by the patient of some right chest wall nodularity. The patient had lost approximately 40 pounds and noted to nodularity on the right chest wall. Additionally she has a persistent sebaceous cyst under her left arm. core biopsy 04-20-23 necrosis/scar right breast Fibrocystic breast change Karlie risk evaluation reveals five-year risk 2.3%, we have discussed chemoprevention and she has declined. Family history: 1.brother: tongue cancer 2. maternal aunt: bone cancer 3. paternal grandmother: breast cancer Hormonal History: menarche: 12 , breast fed: no, age at : 25 menopause: hysterectomy at 40, took both ovaries done for bleeding BCP: 1 1/2 year hormones: 6 months after hysterectomy Past Surgical Hysterectomy: 1. hysterectomy and bilateral oophrectomy 2. cholycystectomy 3. two heart stints 4. bilateral breast reduction Medical History: 1 CAD 2. diverticulosis 3. asthma 4. back pain 5. bilateral shoulder notching 6. right foot surgery 7. history of CHF/ last exacerbation 2019 Social History: smoke: 1/2 PPD 45 years; stopped three years ago alcohol: none drugs: none - Constitutional Constitutional: Denies chills, Denies fever - EENT Eyes: denies blurred vision, denies pain Ears: deny: decreased hearing, tinnitus Ears, nose, mouth and throat: Denies headache, Denies sore throat - Breasts Breasts: bilateral: as per HPI - Cardiovascular Comment: coronary artery diseases with stints which are not working at this time Cardiovascular: Reports high blood pressure - Respiratory Comment: smoker, asthma - Gastrointestinal Comment: diverticulitis, reflux Gastrointestinal: Denies abdominal pain, Denies diarrhea, Denies nausea, Denies vomiting - Genitourinary (Female) Genitourinary: Denies dysuria, Denies hematuria - Menstruation Menstruation: Reports post hysterectomy - Musculoskeletal Comment: back pain arthitis - Integumentary Comment: eczema - Neurological Comment: carpal tunnel Neurological: Reports numbness, Reports weakness - Psychiatric Psychiatric: Reports anxiety - Endocrine Comment: hypothyroid Endocrine: Reports fatigue, Denies weight change - Hematologic/Lymphatic Comment: none - Allergic/Immunologic Allergic/Immunologic: Reports seasonal allergies Objective - Vital Signs Vital signs: Vital Signs Temp Pulse 60 06/09/23 09:07 Resp 18 06/09/23 09:07 BP 122/66 06/09/23 09:07 Pulse Ox 100 06/09/23 09:07 FiO2 Intake & Output 06/08/23 06/09/23 06/09/23 18:59 06:59 18:59 Weight 59.421 kg - Constitutional General appearance: Present: cooperative - EENT Eyes: Present: EOMI ENT: Present: hearing grossly normal - Neck Neck: Present: normal ROM - Respiratory Respiratory: bilateral: CTA - Cardiovascular Rhythm: regular Heart sounds: normal: S1, S2 - Gastrointestinal General gastrointestinal: Present: soft - Integumentary Integumentary: Present: normal turgor - Musculoskeletal Musculoskeletal: Present: gait normal - Psychiatric Psychiatric: Present: A&O x's 3, appropriate affect, intact judgment & insight - Additional findings Additional findings: Breast Exam from 04-26-23, reexamined bilateral axilla and nodule persistant left axilla BRA: 40B Inspection: Well-healed scars from bilateral reduction mammoplasty , bilateral grade 2 ptosis Palpation: Right breast: Multi-positional exam fibrocystic changes, no dominant masses or nodules of concern, nodule noted right chest wall approximately 1 cm in size at about the 11 o'clock position; the nodularity has decreased from prior exam, she underwent a core biopsy of this site which was benign scar tissue, no infection or hematoma We axilla: No adenopathy of concern Left breast: Multiple positional exam fibrocystic changes no dominant masses or nodules of concern Left axilla: No adenopathy of concern; nodule most likely sebaceous cyst with chronic drainage Assessment and Plan Assessment: Impression: Fibrocystic breast changes Bilateral mammogram [id number] probably benign BIRADS 3 repeat bilateral mammogram in 6 months bilateral changes felt to be related to postsurgical changes Ultrasound core biopsy consistent with fat necrosis of the right breast Plan: Bilateral diagnostic mammogram in September 2023 with a physician exam at that time Ultrasound of right breast/chest wall area where she underwent the core biopsy in September 2023 Removal of subcutaneous nodule left axilla in the operating room clearance obtained from Dr. Pugh Risk and benefits of the procedure discussed with the patient. The patient understands and wishes to proceed. Prior to removal of the lesion under the arm we will further evaluate the nodularity on the right chest wall CC: Dr. Lopez
--- NOTE | 2023-06-09 09:49 | P.PN ---
Progress Note - Text Progress Note Date: 06/09/23 To Whom it May Concern: Altagracia Saavedra was seen as a patient for preoperative evaluation on , at 8:30 AM. She will be undergoing surgical intervention 06-20-23. Thank you sincerely, Dr. Katie Reynoso
== END ==
LOC: WWCWWP 08:27
PROVIDERS: ATTEND Surgery
DX: N60.19 Diffuse cystic mastopathy of unspecified breast (principal); I50.9 Heart failure, unspecified; J45.909 Unspecified asthma, uncomplicated; I25.10 Atherosclerotic heart disease of native coronary artery without angina pectoris; K57.90 Diverticulosis of intestine, part unspecified, without perforation or abscess without bleeding; Z80.3 Family history of malignant neoplasm of breast; Z88.1 Allergy status to other antibiotic agents; Z88.8 Allergy status to other drugs, medicaments and biological substances; Z87.891 Personal history of nicotine dependence; Z79.51 Long term (current) use of inhaled steroids

== ENCOUNTER → 2023-06-23 | Outpatient (CLI) | payer BC ==
[2023-06-23 15:33] VITALS: BP 108/68; PULSE 69; RESP 16; TEMP 97.9
--- NOTE | 2023-06-23 15:35 | P.PN ---
Progress Note - Text Progress Note Date: 06/23/23 The patient on 06-20-23 underwent an excision of a nodule left axilla. Pathology benign inclusion cyst. Emanation: Incision: Clean and dry Impression: Patient doing well postop Plan: Patient to follow up in September after mammogram CC: Dr. Lopez
--- NOTE | 2023-06-23 15:37 | P.PN ---
Progress Note - Text Progress Note Date: 06/23/23 To Whom it May concern: Altagracia Saavedra underwent surgery of the left axilla on 8822. She is cleared to return to work on 06-24-23. Sincerely, Dr. Katie Crowe Edgardo
== END ==
LOC: WWCWWP 15:15
PROVIDERS: ATTEND Surgery
DX: Z04.89 Encounter for examination and observation for other specified reasons (principal); L72.3 Sebaceous cyst; Z88.1 Allergy status to other antibiotic agents; Z87.891 Personal history of nicotine dependence

== ENCOUNTER → 2023-11-23 | Outpatient (CLI) | payer BC ==
[2023-11-23 18:13] LABS: Appearance,Urine Clear (Clear); Bilirubin,Urine Negative (Negative); Blood,Urine Negative (Negative); Color,Urine Yellow (Yellow); Ketones,Urine Trace (Negative); Nitrite,Urine Negative (Negative); Specific Gravity,Urine 1.023 (1.001-1.030)
[2023-11-23 18:27] LABS: Bacteria,Urine Trace
[2023-11-24 02:08] LABS: HCT 40.5 % (37.2-46.3); HGB 12.8 g/dL (12.0-15.0); MCH 28.1 pg (27.0-32.0); MCHC 31.6 g/dL (32.0-37.0); Mean Platelet Volume 11.1 FL (9.5-12.2); NRBC Per 100 WBC 0 X 10*3/uL (0.00-0.01); Platelet Count 238 X 10*3/uL (140-440); RBC 4.55 X 10*6/uL (4.10-5.20); RDW 13.6 % (11.5-14.5); WBC 5.18 X 10*3/uL (4.50-10.00)
[2023-11-24 03:24] LABS: % Iron Saturation 20.06 (12.00-45.00); Ferritin 57.6 ng/mL (10.0-291.0); Iron 69 UG/DL (50-170); Magnesium 1.6 mg/dL (1.5-2.4); Total Iron Binding Capacity 344 UG/DL (228-460)
[2023-11-24 03:39] LABS: ALT 15 U/L (8-44); AST 41 U/L (13-35); Albumin 4.3 g/dL (3.8-4.9); Albumin/Globulin Ratio 1.95 Ratio (1.60-3.17); Alkaline Phosphatase 66 U/L (41-126); BUN/Creat Ratio 13.71 Ratio (12.00-20.00); Blood Urea Nitrogen 23.3 mg/dL (9.0-27.0); Carbon Dioxide 22.8 mmol/L (21.6-31.8); Chloride 105 mmol/L (96-109); Globulin 2.2 g/dL (1.6-3.3); Glucose 76 mg/dL (70-110); Potassium 6.5 mmol/L (3.5-5.5); Sodium 141 mmol/L (135-145); Total Bilirubin 0.4 mg/dL (0.3-1.2); Total Protein 6.5 g/dL (6.2-8.2)
== END | disposition home or self-care (01) ==
LOC: LABWHC1 12:30
PROVIDERS: ATTEND Internal Medicine
DX: E55.9 Vitamin D deficiency, unspecified (principal); D63.1 Anemia in chronic kidney disease; N39.0 Urinary tract infection, site not specified; N25.81 Secondary hyperparathyroidism of renal origin; N18.32 Chronic kidney disease, stage 3b
CPT/HCPCS: 36415; 80053; 81001; 82306; 82728; 83540; 83550; 83735; 83970; 84100; 85027

== ENCOUNTER 2023-11-24 04:24 | Emergency (ER) | payer BC ==
[2023-11-24 04:46] VITALS: RESP 16; TEMP 98.2
[2023-11-24 04:59] LABS: Basophils % (A) 0 %; Eosinophils # (A) 0.1 k/uL (0-0.7); Eosinophils % (A) 1 %; HCT 43.3 % (34.0-46.0); HGB 14.3 gm/dL (11.4-16.0); Lymphocytes # (A) 0.7 k/uL (1.0-4.8); Lymphocytes % (A) 7 %; MCH 29.4 pg (25.0-35.0); MCHC 32.9 g/dL (31.0-37.0); MCV 89.3 fL (80.0-100.0); Mean Platelet Volume 7.5; Monocytes # (A) 0.3 k/uL (0-1.0); Monocytes % (A) 3 %; Neutrophils # (A) 8.9 k/uL (1.3-7.7); Neutrophils % (A) 89 %; Platelet Count 354 k/uL (150-450); RBC 4.85 m/uL (3.80-5.40); RDW 13.6 % (11.5-15.5)
[2023-11-24 05:08] LABS: African American GFR (CKD) 39 (>60 ml/min/1.73 sqM); Anion Gap 14 mmol/L; Blood Urea Nitrogen 34 mg/dL (7-17); Calcium 10.1 mg/dL (8.4-10.2); Carbon Dioxide 26 mmol/L (22-30); Chloride 101 mmol/L (98-107); Glucose 140 mg/dL (74-99); Non-African American GFR(CKD) 34 (>60 ml/min/1.73 sqM); Potassium 4.6 mmol/L (3.5-5.1); Sodium 141 mmol/L (137-145)
--- NOTE | 2023-11-24 05:21 | ED ---
Recheck HPI - General Chief Complaint: Recheck/Abnormal Lab/Rx Stated Complaint: Abnormal Labs, Dr sent Source: patient Mode of arrival: ambulatory Limitations: no limitations - History of Present Illness Initial Comments: Patient is a 63-year-old woman who presents to have evaluation for hypokalemia. The patient states that she was at home this morning approximate 4 AM when she received a phone call from her kidney doctor telling her that her potassium was low. Is instructed to go to the emergency department. The patient states she has not noticed any symptoms that are out of the normal for her. MD Complaint: abnormal lab -: minutes(s) Returns Today for: Called Because of Abnormal Lab/Test Symptoms Since Prior Visit: no new symptoms Context: called for abnormal lab result Associated Symptoms: none - Related Data Home Medications Medication Instructions Recorded Confirmed Omeprazole 40 mg PO DAILY 08/21/19 06/23/23 Albuterol Nebulized [Ventolin 2.5 mg INHALATION RT-Q6H PRN 11/15/19 06/23/23 Nebulized] Escitalopram Oxalate [Lexapro] 10 mg PO DAILY 10/02/20 06/23/23 Furosemide [Lasix] 10 mg PO DAILY 10/02/20 06/23/23 carvediloL [Coreg*] 12.5 mg PO BID 10/02/20 06/23/23 Sacubitril/Valsartan [Entresto 24 1 each PO 2000 08/19/22 06/23/23 mg-26 mg Tablet] calcitrioL [Calcitriol] 0.25 mcg PO WEEKLY 08/19/22 06/23/23 Tirzepatide [Mounjaro] 7.5 mg SQ Q14D 04/11/23 06/23/23 Previous Rx's Medication Instructions Recorded Atorvastatin [Lipitor] 80 mg PO DAILY #30 tab 08/26/19 Spironolactone [Aldactone] 12.5 mg PO DAILY 30 Days #30 tab 11/19/19 Allergies Allergy/AdvReac Type Severity Reaction Status Date / Time levofloxacin [From Levaquin] AdvReac Cough Verified 11/24/23 04:58 lisinopril AdvReac Cough Verified 11/24/23 04:58 Review of Systems ROS Statement: Those systems with pertinent positive or pertinent negative responses have been documented in the HPI. ROS Other: All systems not noted in ROS Statement are negative. Constitutional: Denies: fever Respiratory: Denies: cough, dyspnea Cardiovascular: Denies: chest pain, palpitations Gastrointestinal: Denies: abdominal pain, nausea, vomiting, diarrhea Genitourinary: Denies: dysuria, hematuria Musculoskeletal: Denies: back pain Skin: Denies: rash Neurological: Denies: headache, weakness Past Medical History Past Medical History: Asthma, Coronary Artery Disease (CAD), Heart Failure, COPD, GERD/Reflux, GI Bleed, Hypertension, Myocardial Infarction ([place]), Musculoskeletal Disorder, Pneumonia, Renal Disease, Sleep Apnea/CPAP/BIPAP Additional Past Medical History / Comment(s): Hiatal hernia, diverticulitis, chronic bilateral carpal tunnel syndrome, no CPAP use, hx lower GI bleed, v aricose vein. States "2 stents plugged up but body made it's own pathway." no recent issues w/CHF, Denies IN, states she had Pneumonia and possibly Covid 2019, stage 2 kidney disease Last Myocardial Infarction Date:: 08-23-2019 History of Any Multi-Drug Resistant Organisms: None Reported Past Surgical History: Cholecystectomy, Heart Catheterization, Heart Catheterization With Stent, Hysterectomy Additional Past Surgical History / Comment(s): EGD with benign bx, colonoscopy, bilateral cataracts removed. 2 Cardiac stents. Past Anesthesia/Blood Transfusion Reactions: No Reported Reaction Additional Past Anesthesia/Blood Transfusion Reaction / Comment(s): CLAUSTROPHOBIA. Date of Last Stent Placement:: 2006 Past Psychological History: Anxiety Smoking Status: Former smoker Past Alcohol Use History: Rare Past Drug Use History: None Reported - Past Family History Brother(s) Family Medical History: Cancer Additional Family Medical History / Comment(s): Tongue cancer. Mother Family Medical History: Hypertension, Myocardial Infarction ([place]) Additional Family Medical History / Comment(s): 4 MONTHS AFTER FROM "COMPLICATIONS OF A BROKEN HEART" Father Additional Family Medical History / Comment(s): RHEUMATIC FEVER TWICE CHILD. HAD VALVE REPLACEMENT General Exam Limitations: no limitations General appearance: alert, in no apparent distress Head exam: Present: atraumatic, normocephalic Eye exam: Present: normal appearance ENT exam: Present: normal oropharynx Neck exam: Present: normal inspection Respiratory exam: Present: normal lung sounds bilaterally. Absent: respiratory distress, wheezes, rales, rhonchi, stridor Cardiovascular Exam: Present: regular rate, normal rhythm, normal heart sounds. Absent: systolic murmur, diastolic murmur, rubs, gallop GI/Abdominal exam: Present: soft. Absent: distended, tenderness, guarding, rebound, rigid, mass Extremities exam: Present: normal inspection, normal capillary refill. Absent: pedal edema, calf tenderness Neurological exam: Present: alert Skin exam: Present: warm, dry, intact, normal color. Absent: rash Course Vital Signs 11/24/23 11/24/23 11/24/23 04:31 06:41 07:19 Temperature 98.2 F Pulse Rate 80 85 78 Respiratory 16 16 16 Rate Blood Pressure 150/82 160/82 127/73 O2 Sat by Pulse 100 95 96 Oximetry Medical Decision Making - Medical Decision Making Was pt. sent in by a medical professional or institution (, PA, [employer], urgent care, hospital, or prison...) When possible be specific @ -Patient directed to emergency department primary physician Did you speak to anyone other than the patient for history (EMS, parent, family, police, friend...)? What history was obtained from this source @ -[No] Did you review nursing and triage notes (agree or disagree)? Why? @ -[I reviewed and agree with nursing and triage notes] Were old charts reviewed (outside hosp., previous admission, EMS record, old EKG, old radiological studies, urgent care reports/EKG's, prison records)? Report findings @ -[No old charts were reviewed] Differential Diagnosis (chest pain, altered mental status, abdominal pain women, abdominal pain men, vaginal bleeding, weakness, fever, dyspnea, syncope, headache, dizziness, GI bleed, back pain, seizure, CVA, palpatations, mental health, musculoskeletal)? @ -[not applicable] EKG interpreted by me (3pts min.). @ -[I interpreted As above] X-rays interpreted by me (1pt min.). @ -[None done] CT interpreted by me (1pt min.). @ -[None done] U/S interpreted by me (1pt. min.). @ -[None done] What testing was considered but not performed or refused? (CT, X-rays, U/S, labs)? Why? @ -[None] What meds were considered but not given or refused? Why? @ -[None] Did you discuss the management of the patient with other professionals (professionals i.e. DrMedina, PA, [employer], lab, RT, psych nurse, child welfare social worker, incident coordinator, teacher, deck officer, director of casework)? Give summary @ -[No] Was smoking cessation discussed for >3mins.? @ -[No] Was critical care preformed (if so, how long)? @ -[No] Were there social determinants of health that impacted care today? How? (Homelessness, low income, unemployed, alcoholism, drug addiction, transportation, low edu. Level, literacy, decrease access to med. care, detention, rehab)? @ -[No] Was there de-escalation of care discussed even if they declined (Discuss DNR or withdrawal of care, Hospice)? DNR status @ -[No] What co-morbidities impacted this encounter? (DM, HTN, Smoking, COPD, CAD, Cancer, CVA, ARF, Chemo, Hep., AIDS, mental health diagnosis, sleep apnea, morbid obesity)? @ -[None] Was patient admitted / discharged? Hospital course, mention meds given and route, prescriptions, significant lab abnormalities, going to OR and other pertinent info. @ -[Patient is 63-year-old woman directed here over concerned about abnormal potassium from a clinic lab draw. The repeat potassium here is within normal limits. Discussed appropriate further care and follow-up Undiagnosed new problem with uncertain prognosis? @ -[No] Drug Therapy requiring intensive monitoring for toxicity (Heparin, Nitro, Insulin, Cardizem)? @ -[No] Were any procedures done? @ -[No] Diagnosis/symptom? @ -[History of hyperkalemia Primary concern unfounded Acute, or Chronic, or Acute on Chronic? @ -[default] Uncomplicated (without systemic symptoms) or Complicated (systemic symptoms)? @ -[default] Side effects of treatment? @ -[No] Exacerbation, Progression, or Severe Exacerbation? @ -[No] Poses a threat to life or bodily function? How? (Chest pain, [place], [place], pneumonia, PE, COPD, DKA, ARF, appy, cholecystitis, CVA, Diverticulitis, Homicidal, Suicidal, threat to staff... and all critical care pts) @ -[No] - Lab Data Result diagrams: 11/24/23 04:49 11/24/23 04:49 Lab Results 11/24/23 11/24/23 Range/Units 04:49 04:49 WBC 10.0 (3.8-10.6) k/uL RBC 4.85 (3.80-5.40) m/uL Hgb 14.3 (11.4-16.0) gm/dL Hct 43.3 (34.0-46.0) % MCV 89.3 (80.0-100.0) fL MCH 29.4 (25.0-35.0) pg MCHC 32.9 (31.0-37.0) g/dL RDW 13.6 (11.5-15.5) % Plt Count 354 (150-450) k/uL MPV 7.5 Neutrophils % 89 % Lymphocytes % 7 % Monocytes % 3 % Eosinophils % 1 % Basophils % 0 % Neutrophils # 8.9 H (1.3-7.7) k/uL Lymphocytes # 0.7 L (1.0-4.8) k/uL Monocytes # 0.3 (0-1.0) k/uL Eosinophils # 0.1 (0-0.7) k/uL Basophils # 0.0 (0-0.2) k/uL Sodium 141 (137-145) mmol/L Potassium 4.6 (3.5-5.1) mmol/L Chloride 101 (98-107) mmol/L Carbon Dioxide 26 (22-30) mmol/L Anion Gap 14 mmol/L BUN 34 H (7-17) mg/dL Creatinine 1.61 H (0.52-1.04) mg/dL Est GFR (CKD-EPI)AfAm 39 (>60 ml/min/1.73 sqM) Est GFR (CKD-EPI)NonAf 34 (>60 ml/min/1.73 sqM) Glucose 140 H (74-99) mg/dL Calcium 10.1 (8.4-10.2) mg/dL - EKG Data -: EKG Interpreted by Ri EKG shows normal: sinus rhythm, axis (Normal), intervals (Normal), ST-T waves (Lateral T inversions, possible ischemia) Rate: normal (Rate 76 bpm) Disposition Clinical Impression: Feared condition not demonstrated Disposition: HOME SELF-CARE Condition: Good Is patient prescribed a controlled substance at d/c from ED?: No Referrals: None,Stated [Primary Care Provider] - 1-2 days
[2023-11-24] MEDS ORDERED: ACETAMINOPHEN TAB 325 MG TAB PO STA (07:10)
[2023-11-24] MEDS ORDERED: IBUPROFEN 400 MG TAB PO STA (07:10)
[2023-11-24 07:24] VITALS: BP 127/73; PULSE 78
== END 2023-11-24 07:20 | disposition home or self-care (01) ==
LOC: EC 04:24
DX: Z71.1 Person with feared health complaint in whom no diagnosis is made (principal); I11.0 Hypertensive heart disease with heart failure; F41.9 Anxiety disorder, unspecified; G47.30 Sleep apnea, unspecified; I25.10 Atherosclerotic heart disease of native coronary artery without angina pectoris; I25.2 Old myocardial infarction; I50.9 Heart failure, unspecified; K21.9 Gastro-esophageal reflux disease without esophagitis; Z79.899 Other long term (current) drug therapy; Z88.1 Allergy status to other antibiotic agents; Z88.8 Allergy status to other drugs, medicaments and biological substances; Z87.891 Personal history of nicotine dependence; Z90.49 Acquired absence of other specified parts of digestive tract; Z95.5 Presence of coronary angioplasty implant and graft
CPT/HCPCS: 36415; 80048; 85025; 99285

== ENCOUNTER → 2024-04-19 | Outpatient (CLI) | payer BC ==
--- NOTE | 2024-04-19 15:22 | MM ---
Reason for Exam: Additional evaluation requested from prior study. Last mammogram was performed 1 year(s) and 1 month(s) ago. Patient History: Menarche at age 12. First Full-Term at age 25. Left ovary removed at age 40. Right ovary removed at age 40. Hysterectomy at age 40. Postmenopausal. 04/20/2023, Benign US biopsy breast VAD RT on the right side. 08/25/2022, Benign US biopsy breast VAD RT on the right side. 11/17/2021, Bilateral Reduction. 09/11/2019, Benign Core Biopsy on the left side. 09/11/2019, Benign Core Biopsy on the left side. Paternal grandmother had breast cancer. Maternal cousin had breast cancer, age 50. Risk Values: Karlie 5 year model risk: 2.3%. NCI Lifetime model risk: 9.7%. Prior Study Comparison: 03/08/2005 Bilateral Diagnostic Ultrasound, [facility]. 04/03/2007 Bilateral Screening Mammogram, [facility]. 06/19/2009 Bilateral Screening Mammogram, [facility]. 10/30/2015 Bilateral Screening Mammogram, [facility]. 08/05/2019 Bilateral Screening Mammogram, [facility]. 08/20/2019 Left Diagnostic Mammogram, [facility]. 08/20/2019 Left Diagnostic Ultrasound, [facility]. 09/11/2019 Left Diagnostic Mammogram, [facility]. 08/06/2021 Bilateral Diagnostic Mammogram, [facility]. 08/06/2021 Left Diagnostic Ultrasound, [facility]. 08/11/2022 Bilateral MG 3D screening mammo w/cad, [facility]. 08/17/2022 Right US breast workup limited RT, [facility]. 08/25/2022 Right MG diagnostic mammo RT wo CAD, [facility]. 04/03/2023 Bilateral MG 3D diag mammo w/cad AN, [facility]. 04/07/2023 Right US breast limited RT, [facility]. 04/20/2023 Right MG diagnostic mammo RT wo CAD, [facility]. Tissue Density: There are scattered areas of fibroglandular density. Findings: Analyzed By CAD. Bilateral reduction mammoplasty changes. Bilateral areas of nodularity and asymmetric density are unchanged. 2 microclips in the left breast from prior biopsies. Previous rounded fat density areas now show developing coarse calcifications, suspect early fat necrosis calcifications. Six-month follow-up to confirm. Otherwise, no significant change. Overall Assessment: Probably benign, BI-RAD 3 Management: Diagnostic Mammogram of both breasts in 6 months. To confirm suspected early developing fat necrosis calcifications related to the patient's reduction mammoplasties. Results were given to the patient verbally at the time of exam. Patient should continue monthly self-breast exams. A clinical breast exam by your physician is recommended on an annual basis. This exam should not preclude additional follow-up of suspicious palpable abnormalities. Note on Karlie scores and lifetime risk: 1. A Karlie score greater than 3% is considered moderate risk. If this is the case, consider specialist referral to assess eligibility for a risk reducing agent. 2. If overall lifetime risk for the development of breast cancer is 20% or higher, the patient may qualify for future screening with alternating mammogram and breast MRI. Electronically signed and approved by: Christy Parnell M.D. Radiologist
== END | disposition home or self-care (01) ==
LOC: RADMAMWWP 14:39
PROVIDERS: ATTEND Surgery
DX: R92.8 Other abnormal and inconclusive findings on diagnostic imaging of breast (principal); R92.323 Mammographic fibroglandular density, bilateral breasts; Z80.3 Family history of malignant neoplasm of breast; Z78.0 Asymptomatic menopausal state
CPT/HCPCS: 77062; 77066

== ENCOUNTER → 2024-04-25 | Outpatient (CLI) | payer BC ==
[2024-04-25 15:12] VITALS: BP 118/64; PULSE 65; RESP 17; TEMP 97.8
--- NOTE | 2024-04-25 15:20 | P.PN ---
Subjective Progress Note Date: 04/25/24 Principal diagnosis: fibrocystic breast changes, status post reduction mammoplasty 04-25-24 Patient status post ultrasound-guided core biopsy of right breast 12:00 lesion on 6822. Altagracia is a 63-year-old white female being followed for fibrocystic breast changes. She underwent a bilateral breast reduction in November [address] Luna. She's had bilateral mammogram on which revealed probable postop changes in both breast and 6 month repeat mammogram was recommended. She underwent ultrasound-guided core biopsy of the right breast on 6822 which revealed fat necrosis/scar The most recent core biopsy was done secondary to a complaint by the patient of some right chest wall nodularity. The patient had lost approximately 40 pounds and noted to nodularity on the right chest wall. Additionally she has a persistent sebaceous cyst under her left arm. core biopsy 04-20-23 necrosis/scar right breast The patient on 06-14-2023 underwent excision of a nodule in the left axilla. The pathology revealed a benign inclusion cyst. bilateral mammogram on 04-19-24 personally evaluated, BIRAD 3 repeat bilateral mammogram in 6 months The patient has bilateral nodularity related to postsurgical changes. Karlie risk evaluation reveals five-year risk 2.3%, we have discussed chemoprevention and she has declined. Family history: 1.brother: tongue cancer 2. maternal aunt: bone cancer 3. paternal grandmother: breast cancer Hormonal History: menarche: 12 , breast fed: no, age at : 25 menopause: hysterectomy at 40, took both ovaries done for bleeding BCP: 1 1/2 year hormones: 6 months after hysterectomy Past Surgical Hysterectomy: 1. hysterectomy and bilateral oophrectomy 2. cholycystectomy 3. two heart stints 4. bilateral breast reduction Medical History: 1 CAD 2. diverticulosis 3. asthma 4. back pain 5. bilateral shoulder notching 6. right foot surgery 7. history of CHF/ last exacerbation 2019 Social History: smoke: 1/2 PPD 45 years; stopped three years ago alcohol: none drugs: none - Constitutional Constitutional: Denies chills, Denies fever - EENT Eyes: denies blurred vision, denies pain Ears: deny: decreased hearing, tinnitus Ears, nose, mouth and throat: Denies headache, Denies sore throat - Breasts Breasts: bilateral: as per HPI - Cardiovascular Comment: coronary artery diseases with stints which are not working at this time Cardiovascular: Reports high blood pressure - Respiratory Comment: smoker, asthma - Gastrointestinal Comment: diverticulitis, reflux Gastrointestinal: Denies abdominal pain, Denies diarrhea, Denies nausea, Denies vomiting - Genitourinary (Female) Genitourinary: Denies dysuria, Denies hematuria - Menstruation Menstruation: Reports post hysterectomy - Musculoskeletal Comment: back pain arthitis - Integumentary Comment: eczema - Neurological Comment: carpal tunnel Neurological: Reports numbness, Reports weakness - Psychiatric Psychiatric: Reports anxiety - Endocrine Comment: hypothyroid Endocrine: Reports fatigue, Denies weight change - Hematologic/Lymphatic Comment: none - Allergic/Immunologic Allergic/Immunologic: Reports seasonal allergies Objective - Constitutional General appearance: Present: cooperative - EENT Eyes: Present: EOMI ENT: Present: hearing grossly normal - Neck Neck: Present: normal ROM - Respiratory Respiratory: bilateral: CTA - Cardiovascular Heart sounds: normal: S1, S2 - Integumentary Integumentary: Present: normal turgor - Musculoskeletal Musculoskeletal: Present: gait normal - Psychiatric Psychiatric: Present: A&O x's 3, appropriate affect, intact judgment & insight - Additional findings Additional findings: BRA: 40B Inspection: Well-healed scars from bilateral reduction mammoplasty , bilateral grade 2 ptosis Palpation: Right breast: Multi-positional exam fibrocystic changes, no dominant masses or nodules of concern, nodularity in the region of the scar felt to be related to scar tissue and possible fat necrosis We axilla: No adenopathy of concern Left breast: Multiple positional exam fibrocystic changes no dominant masses or nodules of concern Left axilla: No adenopathy of concern; nodule most likely sebaceous cyst with chronic drainage Assessment and Plan Assessment: Impression: Fibrocystic breast changes Bilateral mammogram 04-19-24 probably benign BIRADS 3 repeat bilateral mammogram in 6 months bilateral changes felt to be related to postsurgical changes Plan: Bilateral diagnostic mammogram in September 2024 with a physician exam at that time patient to follow up sooner any questions or concerns CC: Dr. Esparza
== END | disposition home or self-care (01) ==
LOC: WWCWWP 14:56
PROVIDERS: ATTEND Surgery
DX: N60.11 Diffuse cystic mastopathy of right breast (principal); R92.8 Other abnormal and inconclusive findings on diagnostic imaging of breast; N60.12 Diffuse cystic mastopathy of left breast; I25.10 Atherosclerotic heart disease of native coronary artery without angina pectoris; K57.30 Diverticulosis of large intestine without perforation or abscess without bleeding; J45.909 Unspecified asthma, uncomplicated; Z80.3 Family history of malignant neoplasm of breast; Z88.8 Allergy status to other drugs, medicaments and biological substances; Z88.1 Allergy status to other antibiotic agents; Z87.891 Personal history of nicotine dependence

== ENCOUNTER 2024-06-13 06:06 | Emergency (ER) | payer BC ==
[2024-06-13 06:12] VITALS: RESP 18
--- NOTE | 2024-06-13 06:58 | ED ---
Lower Extremity Injury HPI - General Chief Complaint: Extremity Injury, Lower Stated Complaint: Leg Pain -[facility] Time Seen by Provider: 06/13/24 06:57 Source: patient, RN notes reviewed Mode of arrival: ambulatory Limitations: no limitations - History of Present Illness Initial Comments: This is a 64-year-old female who presents to the emergency department for right leg pain. States that earlier today at work a pallet fell and hit her in the right calf and tib-fib. She has since had increasing pain and bruising to this area. She is still able to ambulate, but states that it is painful. MD Complaint: leg injury - Related Data Home Medications Medication Instructions Recorded Confirmed Omeprazole 40 mg PO DAILY 08/21/19 04/25/24 Albuterol Nebulized [Ventolin 2.5 mg INHALATION RT-Q6H PRN 11/15/19 04/25/24 Nebulized] Escitalopram Oxalate [Lexapro] 10 mg PO DAILY 10/02/20 04/25/24 Furosemide [Lasix] 10 mg PO DAILY 10/02/20 04/25/24 carvediloL [Coreg*] 12.5 mg PO BID 10/02/20 04/25/24 Sacubitril/Valsartan [Entresto 24 1 each PO 199908/19/22 04/25/24 mg-26 mg Tablet] calcitrioL 0.25 mcg PO WEEKLY 08/19/22 04/25/24 Tirzepatide [Mounjaro] 7.5 mg SQ Q14D 04/11/23 04/25/24 Previous Rx's Medication Instructions Recorded Atorvastatin [Lipitor] 80 mg PO DAILY #30 tab 08/26/19 Spironolactone [Aldactone] 12.5 mg PO DAILY 30 Days #30 tab 11/19/19 Allergies Allergy/AdvReac Type Severity Reaction Status Date / Time levofloxacin [From Levaquin] AdvReac Cough Verified 06/13/24 06:11 lisinopril AdvReac Cough Verified 06/13/24 06:11 Review of Systems ROS Statement: Those systems with pertinent positive or pertinent negative responses have been documented in the HPI. ROS Other: All systems not noted in ROS Statement are negative. Past Medical History Past Medical History: Asthma, Coronary Artery Disease (CAD), Heart Failure, COPD, GERD/Reflux, GI Bleed, Hypertension, Myocardial Infarction ([place]), Musculoskeletal Disorder, Pneumonia, Renal Disease, Sleep Apnea/CPAP/BIPAP Additional Past Medical History / Comment(s): Hiatal hernia, diverticulitis, chronic bilateral carpal tunnel syndrome, no CPAP use, hx lower GI bleed, varicose vein. States "2 stents plugged up but body made it's own pathway." no recent issues w/CHF, Denies [place], states she had Pneumonia and possibly Covid 2019, stage 2 kidney disease Last Myocardial Infarction Date:: 08-23-2019 History of Any Multi-Drug Resistant Organisms: None Reported Past Surgical History: Cholecystectomy, Heart Catheterization, Heart Catheterization With Stent, Hysterectomy Additional Past Surgical History / Comment(s): EGD with benign bx, colonoscopy, bilateral cataracts removed. 2 Cardiac stents. Past Anesthesia/Blood Transfusion Reactions: No Reported Reaction Additional Past Anesthesia/Blood Transfusion Reaction / Comment(s): CLAUSTROPHOBIA. Date of Last Stent Placement:: 2006 Past Psychological History: Anxiety Smoking Status: Former smoker Past Alcohol Use History: Rare Past Drug Use History: None Reported - Past Family History Brother(s) Family Medical History: Cancer Additional Family Medical History / Comment(s): Tongue cancer. Mother Family Medical History: Hypertension, Myocardial Infarction ([place]) Additional Family Medical History / Comment(s): 4 MONTHS AFTER FROM "COMPLICATIONS OF A BROKEN HEART" Father Additional Family Medical History / Comment(s): RHEUMATIC FEVER TWICE CHILD. HAD VALVE REPLACEMENT General Exam Limitations: no limitations General appearance: alert, in no apparent distress Head exam: Present: atraumatic, normocephalic, normal inspection Respiratory exam: Present: normal lung sounds bilaterally. Absent: respiratory distress, wheezes, rales, rhonchi, stridor Cardiovascular Exam: Present: regular rate, normal rhythm, normal heart sounds. Absent: systolic murmur, diastolic murmur, rubs, gallop, clicks Extremities exam: Present: other (Tenderness and ecchymosis over the right calf. Full range of motion. 2+ DP and PT pulses.) Neurological exam: Present: alert, oriented X3, CN II-XII intact Psychiatric exam: Present: normal affect, normal mood Skin exam: Present: warm, dry, intact, normal color. Absent: rash Course Vital Signs 06/13/24 06:09 Temperature 98.1 F Pulse Rate 61 Respiratory 18 Rate Blood Pressure 147/60 O2 Sat by Pulse 99 Oximetry Medical Decision Making - Medical Decision Making This is a 64-year-old female who presents to the emergency department for a right leg injury. Was pt. sent in by a medical professional or institution? @ -No Did you speak to anyone other than the patient for history? @ -No Did you review nursing and triage notes? @ -Yes, and I agree, it is accurate with regards to the patient's symptoms. Were old charts reviewed? @ -No Differential Diagnosis? @ -Differential Musculoskeletal: Muscular strain, contusion, ligament sprain, fracture, arthritis, septic arthritis, bursitis, cellulitis, muscle spasm, nerve compression, DVT, arterial occlusion, herpes zoster, electrolyte abnormality, tumor.... This is not meant to be in all inclusive list EKG interpreted by me (3pts min.)? @ -Not obtained X-rays interpreted by me (1pt min.)? @ -X-ray of the right tib-fib obtained. My interpretation identifies no acute fractures. CT interpreted by me (1pt min.)? @ -Not obtained U/S interpreted by me (1pt. min.)? @ -Not obtained What testing was considered but not performed? (CT, X-rays, U/S, labs)? Why? @ -None What meds were considered but not given? Why? @ -None Did you discuss the management of the patient with other professionals? @ -No Did you reconcile home meds? @ -No Was smoking cessation discussed for >3mins.? @ -No Was critical care preformed (if so, how long)? @ -No Were there social determinants of health that impacted care today? How? (Homelessness, low income, unemployed, alcoholism, drug addiction, transportation, low edu. Level, literacy, decrease access to med. care, prison, rehab)? @ -No Was there de-escalation of care discussed even if they declined? (Discuss DNR or withdrawal of care, Hospice)? @ -No What co-morbidities impacted this encounter? (DM, HTN, Smoking, COPD, CAD, Cancer, CVA, Hep., AIDS, mental health diagnosis, sleep apnea, morbid obesity)? @ -None Was patient admitted / discharged? @ -Discharged. X-ray of the right tib-fib obtained revealing no acute fractures. Patient declined any pain medication in the emergency department. Advised ibuprofen and Tylenol as needed for pain relief as well as ice and elevation. Required S paperwork and testing was completed. Patient discharged home in stable condition. Case discussed with ED attending Dr. Kwong. Return precautions reviewed in depth, the patient is instructed to return to the emergency department with any new, worsening, or concerning symptoms. Patient verbalized understanding. Undiagnosed new problem with uncertain prognosis? @ -None Drug Therapy requiring intensive monitoring for toxicity (Heparin, Nitro, Insulin, Cardizem)? @ -None Were any procedures done? @ -None Diagnosis/symptom? @ -Right leg contusion Acute, or Chronic, or Acute on Chronic? @ -Acute Uncomplicated (without systemic symptoms) or Complicated (systemic symptoms)? @ -Uncomplicated Side effects of treatment? @ -None Exacerbation, Progression, or Severe Exacerbation] @ -Not applicable Poses a threat to life or bodily function? @ -No - Radiology Data Radiology results: report reviewed, image reviewed Disposition Clinical Impression: Contusion of right leg Disposition: HOME SELF-CARE Instructions (If sedation given, give patient instructions): Contusion in Adults (ED) Additional Instructions: Return to the emergency department with any new, worsening, or concerning symptoms. Alternate with ibuprofen and Tylenol as needed for pain relief. Apply ice and keep the leg elevated. Follow up with your primary care provider in 1-2 days. Is patient prescribed a controlled substance at d/c from ED?: No Referrals: Paul Beasley MD [Primary Care Provider] - 1-2 days Time of Disposition: 08:59
--- NOTE | 2024-06-13 08:52 | XR ---
EXAMINATION TYPE: XR tibia fibula RT DATE OF EXAM: 06/13/2024 CLINICAL HISTORY: pain TECHNIQUE: AP and lateral images of the right tibia and fibula are obtained. COMPARISON: None. FINDINGS: There is no acute fracture/dislocation evident. The joint spaces appear within normal murray its. The overlying soft tissue appears unremarkable. IMPRESSION: There is no acute fracture or dislocation seen. ICD 10 NO FRACTURE, INITIAL EVALUATION
[2024-06-13 09:18] VITALS: BP 126/66; PULSE 70; TEMP 97.7
== END 2024-06-13 09:18 | disposition home or self-care (01) ==
LOC: EC 06:06
DX: S80.11XA Contusion of right lower leg, initial encounter (principal); Z88.1 Allergy status to other antibiotic agents; Z88.8 Allergy status to other drugs, medicaments and biological substances; Z87.891 Personal history of nicotine dependence; W20.8XXA Other cause of strike by thrown, projected or falling object, initial encounter; Y99.0 Civilian activity done for income or pay
CPT/HCPCS: 99283

== ENCOUNTER → 2024-06-13 | Outpatient (CLI) | payer BC ==
--- NOTE | 2024-06-13 10:23 | CTL ---
EXAMINATION TYPE: CT Low Dose Lung DATE OF EXAM ORDERED: 06/13/2024 : Lung cancer screening CT DLP: 59.[address] CTDI: 1.8 mGy Automated exposure control for dose reduction was used. Comparison: None TECHNIQUE: Low dose computed tomography scan was performed through the chest at 1 mm thick sections a nd reconstructed images in multiple planes at 1 mm and [address] DIAGNOSTIC QUALITY: Satisfactory FINDINGS: There is a single 2.5 mm nodule in the right upper lobe. No other nodules are seen. There is no airspace consolidation or abnormal interstitial density. There is no pleural effusion, pleural thickening or pneumothorax. There is moderate arteriosclerotic calcification of the thoracic aorta but no aneurysmal dilatation. There is no mediastinal, hilar or axillary adenopathy. Limited scanning through the upper abdomen reveals cholecystectomy but no other significant abnormali ty. No focal osseous lesions are seen. IMPRESSION: 1. Lung rads category 2 benign findings. Continue routine screening at yearly intervals. 2. No acute cardiopulmonary disease.
== END | disposition home or self-care (01) ==
LOC: RADCTMAIN 09:31
DX: Z12.2 Encounter for screening for malignant neoplasm of respiratory organs (principal); Z87.891 Personal history of nicotine dependence
CPT/HCPCS: 71271

== ENCOUNTER → 2024-07-08 | Outpatient (CLI) | payer OTHER ==
--- NOTE | 2024-07-08 10:56 | US ---
EXAMINATION TYPE: US venous doppler duplex LE RT DATE OF EXAM: 07/08/2024 10:44 AM COMPARISON: NONE CLINICAL INDICATION: Female, 64 years old with history of S80.11XA CONTUSION OF RIGHT LOWER LEG, INIT IAL ENC; Pallet hit patient on half. Bruising. On aspirin. SIDE PERFORMED: Right TECHNIQUE: The lower extremity deep venous system is examined utilizing real time linear array sonog mehreen with graded compression, doppler sonography and color-flow sonography. VESSELS IMAGED: Common Femoral Vein Deep Femoral Vein Greater Saphenous Vein * Femoral Vein Popliteal Vein Small Saphenous Vein * Proximal Calf Veins Posterior tibial veins Peroneal vein (* superficial vessels) Right Leg: Negative for DVT IMPRESSION: No evidence for DVT within the right lower extremity.
--- NOTE | 2024-07-08 11:26 | XR ---
EXAMINATION TYPE: XR tibia fibula RT DATE OF EXAM: 07/08/2024 11:07 AM CLINICAL INDICATION: Female, 64 years old with history of X80.11XA; COMPARISON: None TECHNIQUE: XR tibia fibula RT; examined in AP and lateral projections. FINDINGS: No evidence of any acute osseous pathology, joint dislocation, or soft tissue swelling is n oted. Fixation hardware to the foot without evidence of hardware failure. IMPRESSION: 1. No evidence of acute fracture. 2. Fixation hardware in the foot appears intact.
== END | disposition home or self-care (01) ==
LOC: RADXRMAIN 09:54
PROVIDERS: ATTEND Emergency Medicine
DX: S80.11XA Contusion of right lower leg, initial encounter

== ENCOUNTER → 2024-08-08 | Outpatient (CLI) | payer OTHER ==
--- NOTE | 2024-08-23 08:33 | MR ---
EXAMINATION TYPE: MRI right tibia and fibula without IV contrast DATE OF EXAM: 08/08/2024 COMPARISON: Radiographs 07/08/2024 HISTORY: Lump on right mid calf, medial/posterior, had pallet fall on leg. Markers placed above and below. Standard multiplanar, multisequence MRI departmental protocol Multiplanar, multisequence images of the right tibia and fibula were acquired without contrast. Diffu trang weighted imaging was performed. FINDINGS: Bone marrow signal is within normal limits and without evidence of fracture or marrow replacement. Mild subcutaneous edema along the medial aspect of the mid to distal right lower extremity at the are a of clinical concern without a discrete fluid collection. Soft tissues are otherwise intact. Musculature is symmetric and within normal limits. Visualized tendons are intact. IMPRESSION: 1. Mild linear subcutaneous edema along the medial aspect of the distal right calf without a discrete hematoma. No significant intramuscular contusion. No evidence of tendon or muscle tear. 2. Negative for fracture. [facility], Workstation: [id number], 08/22/2024 8:52 AM
== END | disposition home or self-care (01) ==
LOC: RADMRIMAIN 07:50
PROVIDERS: ATTEND Emergency Medicine
DX: S80.11XD Contusion of right lower leg, subsequent encounter

== ENCOUNTER → 2024-08-08 | Outpatient (CLI) | payer OTHER ==
[2024-08-08 15:53] LABS: % Iron Saturation 16.18 (12.00-45.00); ALT 16 U/L (8-44); AST 74 U/L (13-35); Albumin 4.4 g/dL (3.8-4.9); Alkaline Phosphatase 83 U/L (41-126); BUN/Creat Ratio 18.28 Ratio (12.00-20.00); Blood Urea Nitrogen 32.9 mg/dL (9.0-27.0); Carbon Dioxide 29.9 mmol/L (21.6-31.8); Chloride 99 mmol/L (96-109); Ferritin 87.2 ng/mL (10.0-291.0); Glucose 99 mg/dL (70-110); Iron 56 UG/DL (50-170); Magnesium 1.9 mg/dL (1.5-2.4); Phosphorus 4.4 mg/dL (2.4-5.1); Potassium 4.6 mmol/L (3.5-5.5); Sodium 140 mmol/L (135-145); Total Bilirubin 0.3 mg/dL (0.3-1.2); Total Iron Binding Capacity 346 UG/DL (228-460); Total Protein 6.4 g/dL (6.2-8.2); Uric Acid 4.7 mg/dL (2.9-7.7)
[2024-08-08 15:56] LABS: Appearance,Urine Clear (Clear); Bilirubin,Urine Negative (Negative); Blood,Urine Negative (Negative); Color,Urine Yellow (Yellow); Ketones,Urine Negative (Negative); Nitrite,Urine Negative (Negative); Specific Gravity,Urine 1.006 (1.001-1.030); Urobilinogen,Urine 0.2 E.U./DL
[2024-08-08 16:00] LABS: Bacteria,Urine None Seen (None Seen)
[2024-08-08 16:39] LABS: HCT 35.4 % (37.2-46.3); HGB 11.2 g/dL (12.0-15.0); MCH 29.7 pg (27.0-32.0); MCHC 31.6 g/dL (32.0-37.0); MCV 93.9 FL (80.0-97.0); Mean Platelet Volume 10.4 FL (9.5-12.2); NRBC Per 100 WBC 0 X 10*3/uL (0.00-0.01); Platelet Count 283 X 10*3/uL (140-440); RBC 3.77 X 10*6/uL (4.10-5.20); RDW 13.2 % (11.5-14.5); WBC 5.53 X 10*3/uL (4.50-10.00)
== END | disposition home or self-care (01) ==
LOC: LABWHC1 09:14
PROVIDERS: ATTEND Nurse Practitioner Family
DX: N18.32 Chronic kidney disease, stage 3b
CPT/HCPCS: 36415; 80053; 81001; 82306; 82728; 83540; 83550; 83735; 83970; 84100; 84550; 85027

== ENCOUNTER → 2024-08-27 | Outpatient (CLI) | payer BC ==
[2024-08-27 16:15] LABS: BUN/Creat Ratio 19.81 Ratio (12.00-20.00); Blood Urea Nitrogen 31.7 mg/dL (9.0-27.0); Glucose 59 mg/dL (70-110)
[2024-08-27 16:16] LABS: Calcium 9.7 mg/dL (8.7-10.3); Carbon Dioxide 28.7 mmol/L (21.6-31.8); Chloride 100 mmol/L (96-109); Potassium 4.5 mmol/L (3.5-5.5); Sodium 140 mmol/L (135-145)
== END | disposition home or self-care (01) ==
LOC: LABWHC1 09:45
PROVIDERS: ATTEND Internal Medicine
DX: N18.32 Chronic kidney disease, stage 3b (principal)
CPT/HCPCS: 36415; 80048

== ENCOUNTER → 2024-08-31 | Outpatient (CLI) | payer BC ==
[2024-08-31 13:31] LABS: ALT 19 U/L (8-44); AST 74 U/L (13-35); LDL Cholesterol,Calculated 77.9 mg/dL (0.0-131.0)
== END | disposition home or self-care (01) ==
LOC: LABWHC1 08:13
PROVIDERS: ATTEND Internal Medicine Interventional Cardiology
DX: E78.2 Mixed hyperlipidemia (principal)
CPT/HCPCS: 36415; 80061; 84450; 84460

== ENCOUNTER → 2024-09-04 | Outpatient (CLI) | payer BC ==
--- NOTE | 2024-09-04 15:05 | CT ---
EXAMINATION TYPE: CT angio chest CT DLP: 326.30 mGycm, Automated exposure control for dose reduction was used. DATE OF EXAM: 09/04/2024 12:47 PM COMPARISON: CT low-dose lung 06/13/2024 CLINICAL INDICATION:Female, 64 years old with history of I71.20 ANEURYSM; Thoracic aneurysm w/o ruptu re, pt been c/o SOB and LT side chest pain. TECHNIQUE/CONTRAST: CTA scan of the thorax is performed without and with IV Contrast, patient injected with 80 mL of Isov ue 370. 3D reconstructed images are created on an independent workstation and reviewed.. FINDINGS: Pulmonary Artery: There is no evidence for a filling defect within the pulmonary vasculature to sugge st acute pulmonary embolism. The pulmonary artery is of normal size. Lungs/Pleura: No evidence of pleural effusion or pneumothorax. Development of small left apical patch y groundglass opacity. Airway: Large airways are patent. Heart: Mildly prominent size. No pericardial effusion. Vasculature: No intramural hematoma or dissection. Aortic root measures up to 3.1 cm. Ascending thora cic aorta measures up to 3.5 cm. Descending thoracic aorta measures up to 3.1 cm just above the hiatu s. Small atherosclerotic ulceration of the aortic arch after the origin of the left subclavian artery . Superior one measures up to 7 mm (series 16, image 76) and in inferior one measures up to 9 mm (ser ies 16, image 73) Severe atherosclerotic calcification of the aorta and its branches. High-grade sten osis at the origin of the left subclavian artery. Ectasia of the partially visualized infrarenal abdo callie aorta measuring up to 2.9 cm. Severe stenosis at the origin of the celiac axis. Moderate stenos is at the origin of the SMA. Diminutive visualized proximal left vertebral artery. There are 2 left r enal arteries with severe stenosis of the origin of the more superior one. Mediastinum: No evidence of adenopathy. Musculoskeletal: No acute osseous abnormalities Soft Tissues: Similar skin thickening of the bilateral anterior breasts with small lipomas. Lower neck: No significant findings. Upper Abdomen: Gallbladder is surgically absent. Lobulated appearance of the spleen with calcified gr anuloma. IMPRESSION: 1. No evidence for thoracic aortic aneurysm. Infrarenal abdominal fusiform ectasia measuring up to 2 .9 cm. 2. Severe advanced atherosclerotic disease of the visualized aorta with 2 atherosclerotic ulceration s of the aortic arch. High-grade stenosis at the origin of the left subclavian artery and celiac axi s. Additional high-grade stenosis involving the superior left renal artery. Moderate stenosis at the origin of the SMA. 3. Development of small left apical patchy groundglass opacity which may represent an infectious/inf lammatory process. [facility], , 09/04/2024 3:03 PM
== END | disposition home or self-care (01) ==
LOC: RADCTMAIN 11:53
PROVIDERS: ATTEND Internal Medicine Interventional Cardiology
CPT/HCPCS: 71275

== ENCOUNTER → 2024-09-04 | Outpatient (CLI) | payer BC ==
--- NOTE | 2024-09-04 09:27 | US ---
EXAMINATION TYPE: US kidneys/renal and bladder DATE OF EXAM: 09/04/2024 COMPARISON: Renal ultrasound 02/06/2023, 08/06/2021, CT abdomen 11/16/2019 CLINICAL INDICATION: Female, 64 years old with history of N18.32 CHRONIC KIDNEY DISEASE, STAGE 3B; Re nal disease. TECHNIQUE: Grayscale and color Doppler imaging of the bilateral kidneys and urinary bladder: FINDINGS: EXAM MEASUREMENTS: Right Kidney: 8.9 x 4.6 x 5.2 cm Left Kidney: 8.8 x 4.3 x 4.5 cm Limited due to bowel gas Right Kidney: No hydronephrosis or masses seen, echogenic, prominent pyramids Left Kidney: No hydronephrosis or masses seen, prominent pyramids Bladder: Distended, anechoic Bilateral Jets seen There is no evidence for hydronephrosis at this point in time. Bilateral prominent pyramids. Cortical medullary differentiation is maintained. No nephrolithiasis is seen. No masses are identified. The urinary bladder is anechoic. Ectatic distal abdominal aorta measuring 2.9 x 2.8 cm in diameter. IMPRESSION: 1. No hydronephrosis. 2. Distal abdominal aortic ectasia measuring up to 2.9 cm. [facility], , 09/04/2024 9:25 AM
== END | disposition home or self-care (01) ==
LOC: RADUSWWP 08:25
PROVIDERS: ATTEND Internal Medicine
CPT/HCPCS: 76770

== ENCOUNTER → 2024-11-21 | Outpatient (CLI) | payer BC ==
--- NOTE | 2024-11-25 07:41 | BD ---
EXAMINATION TYPE: Axial Bone Density DATE OF EXAM: 11/21/2024 CLINICAL HISTORY: 64 years old Female. ICD-10 CODE: Z78.0 ASYMPTOMATIC MENOPAUSAL STATE , Additional History: Height: 58 Weight: 126 FRAX RISK QUESTIONS: History of Fracture in Adulthood: unsure Secondary Osteoporosis: 3. Menopause before 45: yes RISK FACTORS HISTORY OF: MEDICATIONS: EXAM MEASUREMENTS: Bone mineral densitometry was performed using the Smartj[employer] System. Bone mineral density as measured about the Lumbar spine is: ----- L1-L4(G/cm2): 0.922 T Score Values are as follows: ----- L1: -2.1 ----- L2: -2.1 ----- L3: -1.9 ----- L4: -2.6 ----- L1-L4: -2.1 Z Score Values are as follows: ----- L1: -0.3 ----- L2: -0.3 ----- L3: -0.2 ----- L4: -0.9 ----- L1-L4: -0.4 First dexa at [facility] Bone mineral density about the R hip (g/cm2): 0.758 Bone mineral density about the L hip (g/cm2): 0.778 T Score values are as follows: -----R Neck: -2.5 -----L Neck: -2.5 -----R Total: -2.0 -----L Total: -1.8 Z Score values are as follows: -----R Neck: -0.9 -----L Neck: -0.9 -----R Total: -0.7 -----L Total: -0.5 First dexa at [facility] FRAX%s: The graph provided illustrates a 12.8% chance for a major osteoporotic fx and a 2.6% chance f or the hips probability for fx in 10 years time. IMPRESSION: Osteoporosis (T Score less than -2.5). There is increased fracture risk and therapy is usually indicated based on age. Re-Screen 1-2 years. NOTE: T-SCORE=SD OF THE YOUNG ADULT MEAN. [facility], , 11/25/2024 7:39 AM
== END | disposition home or self-care (01) ==
LOC: RADBDWWP 08:38
DX: M81.0 Age-related osteoporosis without current pathological fracture (principal); Z78.0 Asymptomatic menopausal state
CPT/HCPCS: 77080

== ENCOUNTER → 2024-11-27 | Outpatient (CLI) | payer BC ==
[2024-11-27 10:30] LABS: Blood Urea Nitrogen 33.5 mg/dL (9.0-27.0); Carbon Dioxide 28.7 mmol/L (21.6-31.8); Chloride 101 mmol/L (96-109); Potassium 4.7 mmol/L (3.5-5.5); Sodium 140 mmol/L (135-145)
[2024-11-27 10:33] LABS: HCT 35.9 % (37.2-46.3); HGB 11.6 g/dL (12.0-15.0); MCH 28.9 pg (27.0-32.0); MCHC 32.3 g/dL (32.0-37.0); MCV 89.5 FL (80.0-97.0); Mean Platelet Volume 10.3 FL (9.5-12.2); NRBC Per 100 WBC 0 X 10*3/uL (0.00-0.01); Platelet Count 292 X 10*3/uL (140-440); RBC 4.01 X 10*6/uL (4.10-5.20); RDW 13.2 % (11.5-14.5); WBC 5.98 X 10*3/uL (4.50-10.00)
== END | disposition home or self-care (01) ==
LOC: LABPAT 07:59
PROVIDERS: ATTEND Internal Medicine Interventional Cardiology
DX: I25.10 Atherosclerotic heart disease of native coronary artery without angina pectoris (principal)
CPT/HCPCS: 36415; 80051; 82565; 84520; 85027

== ENCOUNTER 2024-11-29 05:37 | Day surgery (SDC) | payer BC ==
[2024-11-29] MEDS ORDERED: ALPRAZolam 0.25 MG TAB PO PRN (06:09)
[2024-11-29] MEDS ORDERED: NITROGLYCERIN SL TABS 0.4 MG TAB SUBLINGUAL PRN (06:09)
[2024-11-29] MEDS ORDERED: CLOPIDOGREL 75 MG TAB PO PRN (06:09)
[2024-11-29] MEDS ORDERED: ASPIRIN 81 MG PO PRN (06:09)
[2024-11-29] MEDS ORDERED: ALPRAZolam 0.5 MG TAB PO PRN (06:09)
[2024-11-29] MEDS: SODIUM CHLORIDE 0.9% 1,000 ML in EMPTY BAG 1 BAG IV ONE (07:24)
[2024-11-29] MEDS: IV FLUID CONTINUATION 1,000 ML IV ONE (07:26)
[2024-11-29 07:33] VITALS: RESP 16; TEMP 97.7
[2024-11-29] MEDS: MIDAZOLAM 2 MG/2 ML VIAL IVP ONE (08:05)
[2024-11-29] MEDS: LIDOCAINE 1% INJ 10MG/ML (20 ML MDV) SQ ONE (08:06)
[2024-11-29] MEDS: fentaNYL (PF) 50 MCG/ML 2 ML AMP IVP ONE (08:14)
[2024-11-29] MEDS: HEPARIN SODIUM 1,000 UN/ML (10ML VL) IVP ONE (08:23)
[2024-11-29] MEDS: CLOPIDOGREL 75 MG TAB PO ONE (08:56)
[2024-11-29] MEDS: IOPAMIDOL-370 100ML BTL INJ ONE (08:57)
[2024-11-29] MEDS ORDERED: NALOXONE 0.4 MG/ML 1 ML VIAL IVP PRN (09:05)
--- NOTE | 2024-11-29 09:11 | P.PCN ---
Date of Procedure: 11/29/24 Operative Findings: PERCUTANEOUS PERIPHERAL INTERVENTION Performing physician Castro Thornton M.D. Procedure performed 1. Successful stenting of the left subclavian artery using 9.0 x 29 mm balloon expandable stent with an excellent angiographic results 2. Adjunctive use of IVUS 3. An aortic arch angiogram 4. Selective left subclavian angiogram 5. Right common femoral artery angiogram and ultrasound-guided access of the right common femoral artery 6. 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 The right common femoral artery was cannulated using micropuncture technique under ultrasound guidance a micropuncture wire passed easily then I placed a 6 Syriac 11 cm sheath at the right common femoral artery. Using a pigtail catheter and power injection we did an aortic arch angiogram. 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 At that point I decided to intervene on the left subclavian artery. I did exchange my 11 cm sheath into a 70 cm sheath using a 3 5 glide advantage wire. After that I did wired the left subclavian using the glide advantage wire. I did exchange the 035 wire into all 4 wire using a 3 5 catheter and after that I did IVUS which showed a calcified l esion involving the ostial of the left subclavian artery with a diameter around 9 mm. Predilatation was performed using 8 mm balloon after I exchanged for a 035 using the same catheter. After that I deployed 9.0 x 29 mm balloon expandable stent where the stent was positioned under fluoroscopy guidance and deployed under fluoroscopy guidance and ostial of the stent was flared. It was flared using the stent balloon. Finally I did selective carotid angiogram and by the end I did selective right common femoral artery angiogram before I deployed the Perclose device and the procedure was completed with no complication Postprocedure management 1. Dual antiplatelet therapy 2. Aggressive cholesterol control 3. Risk factors modification 4. Follow-up with the patient
[2024-11-29] MEDS ORDERED: SODIUM CHLORIDE 0.9% 1,000 ML in EMPTY BAG 1 BAG IV SCH (09:15)
--- NOTE | 2024-11-29 09:39 | IR ---
EXAMINATION TYPE: IR stent intravas non coronary DATE OF EXAM: 11/29/2024 9:21 AM COMPARISON: Pre Operative Images if available both CT/MRI or plain film CLINICAL INDICATION: Female, 64 years old with history of Stenosis, 16.7m/11.6698DAP, Lt subclavian s tent.; TECHNIQUE: IR stent intravas non coronary, multiple fluoroscopic images provided for procedure. Total fluoroscopy time: 16.7 minutes Total submitted images to PACS: [id number] DAP: 11.6698 mGym2 Gycm2 uGym2 cGycm2 or equivalent. FINDINGS: Fluoroscopic images during angiography demonstrated no evidence for extravasation of contrast. Scatte red atherosclerosis and varying degrees of luminal narrowing noted. IMPRESSION: 1. No evidence for intraoperative complication. 2. Please see the operative/procedural note for further details. [facility], , 11/29/2024 9:37 AM
[2024-11-29 18:00] VITALS: BP 109/55; PULSE 67
[2024-11-29] MEDS ORDERED: SACUBITRIL/VALSARTAN 24 MG-26 MG TABLET PO SCH (20:00)
[2024-11-29] MEDS ORDERED: carvediloL 12.5 MG TAB PO SCH (21:00)
[2024-11-30] MEDS ORDERED: ATORVASTATIN 80 MG TAB PO SCH (09:00)
[2024-11-30] MEDS ORDERED: FUROSEMIDE 40 MG TAB PO SCH (09:00)
[2024-11-30] MEDS ORDERED: NON FORMULARY DRUG (Omeprazole [Omeprazole] 40 MG Capsule.Dr) PO SCH (09:00)
[2024-11-30] MEDS ORDERED: CLOPIDOGREL 75 MG TAB PO SCH (09:00)
[2024-11-30] MEDS ORDERED: ESCITALOPRAM 10 MG TAB PO SCH (09:00)
[2024-11-30] MEDS ORDERED: SPIRONOLACTONE 25 MG TAB PO SCH (09:00)
== END 2024-11-29 14:35 | disposition home or self-care (01) ==
LOC: CATHCVL 05:37
PROVIDERS: ATTEND Internal Medicine Interventional Cardiology
DX: I25.5 Ischemic cardiomyopathy (principal); I25.10 Atherosclerotic heart disease of native coronary artery without angina pectoris; I65.23 Occlusion and stenosis of bilateral carotid arteries; E78.5 Hyperlipidemia, unspecified; I71.40 Abdominal aortic aneurysm, without rupture, unspecified; I10 Essential (primary) hypertension; Z79.82 Long term (current) use of aspirin; Z79.899 Other long term (current) drug therapy; Z87.891 Personal history of nicotine dependence; Z88.8 Allergy status to other drugs, medicaments and biological substances
CPT/HCPCS: 99152; 99153; 36221; 37236; 37252; C1894 ×2; C1725; C1876; C1769 ×3; C1753; C1760; J2250; J2003; J3010; J1644; Q9967

== ENCOUNTER → 2025-01-03 | Day surgery (SDC) | payer BC ==
[~2025-01-03] MED LIST changes: +ALPRAZolam 0.5 MG TAB PO PRN; +HEPARIN SODIUM,PORCINE (1 ML) 2,500 UNIT in SODIUM CHLORIDE 0.9% 250 ML IRRIGATION PRN; +HEPARIN SODIUM,PORCINE 10,000 UNIT in SODIUM CHLORIDE 0.9% 1,000 ML IRRIGATION PRN; +NITROGLYCERIN SL TABS 0.4 MG TAB SUBLINGUAL PRN; -Pre Op ABX Message 1 EACH MISC MISCELLANE ONE
[2025-01-03] MEDS: SODIUM CHLORIDE 0.9% 1,000 ML in EMPTY BAG 1 BAG IV ONE (08:59)
[2025-01-03] MEDS: ASPIRIN 325 MG TAB PO STA (09:00)
[2025-01-03] MEDS: IV FLUID CONTINUATION 1,000 ML IV ONE (09:04)
[2025-01-03] MEDS: ALPRAZolam 0.25 MG TAB PO PRN (09:07)
[2025-01-03] MEDS: CLOPIDOGREL 75 MG TAB PO STA (09:07)
[2025-01-03 09:12] VITALS: RESP 16; TEMP 97.8
[2025-01-03] MEDS: fentaNYL (PF) 50 MCG/ML 2 ML AMP IVP ONE (10:48)
[2025-01-03] MEDS: MIDAZOLAM 2 MG/2 ML VIAL IVP ONE (10:48)
[2025-01-03 11:25] VITALS: BP 139/65; PULSE 60
== END ==
LOC: CATHCVL 08:46
PROVIDERS: ATTEND Internal Medicine Interventional Cardiology
DX: I70.8 Atherosclerosis of other arteries (principal); Z53.8 Procedure and treatment not carried out for other reasons; I25.10 Atherosclerotic heart disease of native coronary artery without angina pectoris; I25.82 Chronic total occlusion of coronary artery; I25.2 Old myocardial infarction; I12.9 Hypertensive chronic kidney disease with stage 1 through stage 4 chronic kidney disease, or unspecified chronic kidney disease; N18.9 Chronic kidney disease, unspecified; I25.5 Ischemic cardiomyopathy; E78.5 Hyperlipidemia, unspecified; I71.019 Dissection of thoracic aorta, unspecified; I65.23 Occlusion and stenosis of bilateral carotid arteries; I70.1 Atherosclerosis of renal artery; K55.059 Acute (reversible) ischemia of intestine, part and extent unspecified; Z79.02 Long term (current) use of antithrombotics/antiplatelets; Z79.82 Long term (current) use of aspirin; Z79.899 Other long term (current) drug therapy; Z87.891 Personal history of nicotine dependence; Z95.828 Presence of other vascular implants and grafts; Z82.49 Family history of ischemic heart disease and other diseases of the circulatory system
CPT/HCPCS: J2250; J3010